=== PATIENT | female | born 1960 | race Hispanic/Latino ===

== ENCOUNTER 2017-06-12 10:42 | Emergency (ER) | payer OTHER ==
[2017-06-12] MEDS ORDERED: ACETAMINOPHEN 500 MG TAB ONE (11:54)
[2017-06-12] MEDS ORDERED: ONDANSETRON 4 MG/2 ML VIAL ONE ×2 (11:54→13:23)
[2017-06-12] MEDS ORDERED: NA CHLORIDE 0.9% 1,000 ML ONE (11:54)
[2017-06-12 12:20] LABS: Bicarbonate 27 mEq/L (21-31); Glucose Level 273 mg/dL (65-120); Potassium 3.9 mEq/L (3.6-5.0); Sodium Level 137 mEq/L (135-145)
[2017-06-12 12:25] LABS: Absolute Lymphocytes (CBC) 1.7 K/uL (0.7-4.9); Absolute Monocytes 0.3 K/uL (0.1-1.3); Absolute Neutrophil 2.4 K/uL (1.8-8.0); Eosinophils % 1.1 % (0-4.4); Hematocrit 42.6 % (36.0-45.0); Lymphocytes % 37.8 % (15.3-44.8); MCH 31.4 pg (27.0-35.0); MCV 91.9 fL (80-100); MPV 9.9 fL (7.6-11.3); Monocytes % 7.4 % (3.3-12.3); RBC Red Blood Cell Count 4.63 M/uL (3.86-4.86)
[2017-06-12 12:27] LABS: ALT/SGPT 64 IU/L (10-60); AST/SGOT 41 IU/L (10-42); Albumin 4.4 g/dL (3.2-5.5); Alkaline Phosphatase 133 IU/L (42-121); BUN Blood Urea Nitrogen 10 mg/dL (6-20); Bilirubin Direct 0.1 mg/dL (0-0.2); Bilirubin Total 0.6 mg/dL (0.3-1.2); Protein, Total 7.8 g/dL (6.0-8.3)
[2017-06-12 12:34] LABS: Urine Blood TRACE (NEG); Urine Glucose 3+ (NEG); Urine Protein NEGATIVE (NEG); Urine Specific Gravity 1.015 (1.005-1.030); Urine pH 5.5 (5.0-7.0)
[2017-06-12 12:39] LABS: Urine Bacteria <20 /HPF (<20); Urine Culture Reflex Order REFLEXED; Urine Mucus LIGHT /HPF (NONE SEEN)
[2017-06-12] MEDS ORDERED: CEFTRIAXONE/SWI 1gm 0 GM/0 ML SYR ONE (13:14)
[2017-06-12] MEDS ORDERED: HYDROMORPHONE HCL 2 MG/ML inj ONE (13:14)
--- NOTE | 2017-06-12 13:19 | ER ---
Nurse's Notes [facility] Name: Jeannie Giron Age: 57 yrs Sex: Female : 1960 Arrival Date: 06/12/2017 Time: 10:46 Bed 15 Private MD: Jerry Genao C Diagnosis: Acute Hyperglycemia;Acute Urinary Tract Infection Presentation: 06/12 10:47 Presenting complaint: Patient states: checked my blood sugar this morning around 8am, i hj coudnt get it down less than 400; i took my metformin, its didn't come down; reports nausea, headache. Transition of care: patient was not received from another setting of care. Onset of symptoms was June 12, 2017. Initial Sepsis Screen: Does the patient meet any 2 criteria? No. Patient's initial sepsis screen is negative. Does the patient have a suspected source of infection? No. Patient's initial sepsis screen is negative. Care prior to arrival: None. 10:47 Method Of Arrival: Ambulatory hj 10:47 Acuity: SHOSHANA 3 hj Triage Assessment: 10:51 General: Appears in no apparent distress. uncomfortable, Behavior is calm, cooperative, hj appropriate for age. 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 - Social history:: Patient/guardian denies using alcohol, street drugs, IV drugs, Smoking status: Patient/guardian denies using tobacco. - Family history:: not pertinent. - Hospitalizations: : No recent hospitalization is reported. Screenin:24 Abuse screen: Denies threats or abuse. Nutritional screening: No deficits noted. em Tuberculosis screening: No symptoms or risk factors identified. Fall Risk None identified. Assessment: 11:14 General: Appears in no apparent distress. comfortable, Behavior is calm, cooperative, em Reports having sugar >400 and c/o N. Pain: Complains of pain in head Pain currently is 6 out of 10 on a pain scale. Neuro: Level of Consciousness is awake, alert, obeys commands, Oriented to person, place, time, situation, Reports headache Denies weakness dizziness. Cardiovascular: Capillary refill < 3 seconds Patient's skin is warm and dry. Respiratory: Airway is patent Respiratory effort is even, unlabored, Respiratory pattern is regular, symmetrical. GI: Abdomen is round Reports nausea, Patient currently denies diarrhea, vomiting. : Urine is clear. EENT: No signs and/or symptoms were reported regarding the EENT system. Derm: Skin is intact, Skin is pink, warm \T\ dry. Musculoskeletal: Range of motion: intact in all extremities. 11:30 Reassessment: Patient appears in no apparent distress at this time. I agree with the iw above assessment by Napoleon Qiu LVN. 12:00 Reassessment: Patient appears in no apparent distress at this time. Patient and/or em family updated on plan of care and expected duration. Pain level reassessed. Patient is alert, oriented x 3, equal unlabored respirations, skin warm/dry/pink. pt request warm blanket. 13:05 Reassessment: Patient appears in no apparent distress at this time. Patient and/or em family updated on plan of care and expected duration. Pain level reassessed. Patient is alert, oriented x 3, equal unlabored respirations, skin warm/dry/pink. 14:14 Reassessment: Patient appears in no apparent distress at this time. Patient and/or em family updated on plan of care and expected duration. Pain level reassessed. Patient is alert, oriented x 3, equal unlabored respirations, skin warm/dry/pink. pt reports being itchy after receiving iv rocephen, mild redness and hives noted to face, Dr. Guerrero notified, new orders received, will continue to monitor. 14:56 Reassessment: Patient appears in no apparent distress at this time. hives and redness em have decreased, pt instructed to take Benadryl if symptoms return and to come back to the emergency room, pt and verbalizes understanding Patient states symptoms have improved. Vital Signs: 10:52 BP 129 / 62; Pulse 69; Resp 18; Temp 97.8(TE); Pulse Ox 100% on R/A; Weight 74.84 kg; hj Height 5 ft. 1 in. (154.94 cm); 12:00 BP 118 / 75; Pulse 61; Resp 18; Pulse Ox 99% on R/A; em 13:15 BP 121 / 80; Pulse 60; Resp 17; Pulse Ox 95% on R/A; em 14:23 BP 129 / 56; Pulse 57; Resp 16; Pulse Ox 97% on R/A; em 14:54 BP 121 / 58; Pulse 67; Resp 16; Pulse Ox 97% on R/A; Pain 4/10; em 10:52 Body Mass Index 31.18 (74.84 kg, 154.94 cm) hj ED Course: 10:46 Patient arrived in ED. mr 10:46 Jerry Genao MD is Private Physician. mr 10:49 Triage completed. hj 10:53 Arm band placed on left wrist. hj 11:17 Mukund Guerrero MD is Attending Physician. wa 11:23 Napoleon Qiu LVN is Primary Nurse. em 12:12 Initial lab(s) drawn, by me, sent to lab. Inserted saline lock: 20 gauge in right dh3 antecubital area, using aseptic technique. Blood collected. 12:24 No provider procedures requiring assistance completed. em 12:26 Patient has correct armband on for positive identification. Bed in low position. Call em light in reach. Side rails up X2. 15:15 IV discontinued, intact, bleeding controlled, No redness/swelling at site. Pressure em dressing applied. Administered Medications: 12:04 Drug: Tylenol 1000 mg Route: PO; em 13:01 Follow up: Response: No adverse reaction em 12:15 Drug: NS 0.9% 1000 ml Route: IV; Rate: 1 bolus; Site: right antecubital; em 14:23 Follow up: IV Status: Completed infusion; IV Intake: 1000ml em 12:20 Drug: Zofran 4 mg Route: PO; iw 13:01 Follow up: Response: No adverse reaction em 12:41 Drug: Zofran 4 mg Route: IVP; Site: right antecubital; iw 14:25 Follow up: Response: No adverse reaction em 13:40 Drug: Dilaudid 1 mg Route: IVP; Site: right antecubital; iw 14:24 Follow up: Response: No adverse reaction; Pain is decreased em 14:05 Drug: Rocephin - (cefTRIAXone) 2 grams Route: IVPB; Infused Over: 30 mins; Site: right iw antecubital; 14:25 Follow up: Response: Adverse reaction, Physician notified; Adverse reaction, Physician em notified, mild hives and redness noted to face; IV Status: Completed infusion 14:25 Drug: Benadryl 12.5 mg Route: IVP; Site: right antecubital; ae1 15:01 Follow up: Response: No adverse reaction em Point of Care Testing: Blood Glucose: 10:56 Blood Glucose: 295 mg/dL; hj Ranges: Intake: 14:23 IV: 1000ml; Total: 1000ml. em Outcome: 13:18 Discharge ordered by . wa 15:15 Discharged to home ambulatory. em 15:15 Condition: good 15:15 Discharge instructions given to patient, Instructed on discharge instructions, follow up and referral plans. medication usage, Demonstrated understanding of instructions, follow-up care, medications, Prescriptions given X 2. 15:21 Patient left the ED. em Signatures: Mahogany Jang mr Lazarus, Napoleon, WHEEL SHOP SUPERVISOR WHEEL SHOP SUPERVISOR em Farzaneh Alfaro RN RN Artie Collins RN RN Elroy Daniel RN RN ae1 Catina Zelaya 3 Mukund Guerrero MD MD wa Corrections: (The following items were deleted from the chart) 10:53 10:52 Pulse 69bpm; Resp 18bpm; Pulse Ox 100% RA; Temp 97.8F Temporal; 74.84 kg; Height hj 5 ft. 1 in.; BMI: 31.1; hj 14:33 13:05 Reassessment: Patient appears in no apparent distress at this time. Patient em and/or family updated on plan of care and expected duration. Pain level reassessed. Patient is alert, oriented x 3, equal unlabored respirations, skin warm/dry/pink. em 14:45 14:14 Reassessment: Patient appears in no apparent distress at this time. Patient em and/or family updated on plan of care and expected duration. Pain level reassessed. Patient is alert, oriented x 3, equal unlabored respirations, skin warm/dry/pink. pt reports being itchy after receiving iv rocephen, mild redness and hives noted to face, Dr. Guerrero notified, new orders received em
--- NOTE | 2017-06-12 13:20 | EDPHYS ---
Physician Documentation [facility] Name: Jeannie Giron Age: 57 yrs Sex: Female : 1960 Arrival Date: 06/12/2017 Time: 10:46 Bed 15 Private MD: Jerry Genao C ED Physician Mukund Guerrero HPI: 06/12 12:09 This 57 yrs old Female presents to ER via Ambulatory with complaints of High wa Blood Sugar. 12:09 that was potentially precipitated by no particular event. Onset: The symptoms/episode wa began/occurred 1 day(s) ago. Associated signs and symptoms: Pertinent positives: nausea, generalized feeling of unwell, Pertinent negatives: diarrhea, vomiting. Current symptoms: In the emergency department the patient's symptoms are unchanged from the initial presentation. The patient has not experienced similar symptoms in the past. The patient has not recently seen a physician. 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 - Social history:: Patient/guardian denies using alcohol, street drugs, IV drugs, Smoking status: Patient/guardian denies using tobacco. - Family history:: not pertinent. - Hospitalizations: : No recent hospitalization is reported. ROS: 12:10 Constitutional: Negative for fever, chills, and weight loss, Eyes: Negative for injury, wa pain, redness, and discharge, ENT: Negative for injury, pain, and discharge, Neck: Negative for injury, pain, and swelling, Cardiovascular: Negative for chest pain, palpitations, and edema, Respiratory: Negative for shortness of breath, cough, wheezing, and pleuritic chest pain, Abdomen/GI: Negative for abdominal pain, nausea, vomiting, diarrhea, and constipation, Back: Negative for injury and pain, MS/Extremity: Negative for injury and deformity, Skin: Negative for injury, rash, and discoloration, Neuro: Negative for headache, weakness, numbness, tingling, and seizure. 12:10 All other systems are negative. Exam: 12:11 Constitutional: This is a well developed, well nourished patient who is awake, alert, wa and in no acute distress. Head/Face: Normocephalic, atraumatic. Eyes: Pupils equal round and reactive to light, extra-ocular motions intact. Lids and lashes normal. Conjunctiva and sclera are non-icteric and not injected. Cornea within normal limits. Periorbital areas with no swelling, redness, or edema. ENT: Nares patent. No nasal discharge, no septal abnormalities noted. Tympanic membranes are normal and external auditory canals are clear. Oropharynx with no redness, swelling, or masses, exudates, or evidence of obstruction, uvula midline. Mucous membranes moist. Neck: Trachea midline, no thyromegaly or masses palpated, and no cervical lymphadenopathy. Supple, full range of motion without nuchal rigidity, or vertebral point tenderness. No Meningismus. Cardiovascular: Regular rate and rhythm with a normal S1 and S2. No gallops, murmurs, or rubs. Normal PMI, no JVD. No pulse deficits. Respiratory: Lungs have equal breath sounds bilaterally, clear to auscultation and percussion. No rales, rhonchi or wheezes noted. No increased work of breathing, no retractions or nasal flaring. Abdomen/GI: Soft, non-tender, with normal bowel sounds. No distension or tympany. No guarding or rebound. No evidence of tenderness throughout. Back: No spinal tenderness. No costovertebral tenderness. Full range of motion. Skin: Warm, dry with normal turgor. Normal color with no rashes, no lesions, and no evidence of cellulitis. MS/ Extremity: Pulses equal, no cyanosis. Neurovascular intact. Full, normal range of motion. Neuro: Awake and alert, GCS 15, oriented to person, place, time, and situation. Cranial nerves II-XII grossly intact. Motor strength 5/5 in all extremities. Sensory grossly intact. Cerebellar exam normal. Normal gait. Psych: Awake, alert, with orientation to person, place and time. Behavior, mood, and affect are within normal limits. Vital Signs: 10:52 BP 129 / 62; Pulse 69; Resp 18; Temp 97.8(TE); Pulse Ox 100% on R/A; Weight 74.84 kg; hj Height 5 ft. 1 in. (154.94 cm); 12:00 BP 118 / 75; Pulse 61; Resp 18; Pulse Ox 99% on R/A; em 13:15 BP 121 / 80; Pulse 60; Resp 17; Pulse Ox 95% on R/A; em 14:23 BP 129 / 56; Pulse 57; Resp 16; Pulse Ox 97% on R/A; em 14:54 BP 121 / 58; Pulse 67; Resp 16; Pulse Ox 97% on R/A; Pain 4/10; em 10:52 Body Mass Index 31.18 (74.84 kg, 154.94 cm) hj MDM: 11:17 Patient medically screened. wa 12:11 Differential diagnosis: hyperglycemia. r/o acute infection. wi 13:14 Data reviewed: vital signs, nurses notes, lab test result(s), radiologic studies. Test wa interpretation: by ED physician or midlevel provider: labs noted for hyperglycemia and pyuria consistent with UTI. Response to treatment: the patient's symptoms have markedly improved after treatment. 06/12 11:41 Order name: Basic Metabolic Panel; Complete Time: 12:51 wi 06/12 11:41 Order name: CBC with Diff; Complete Time: 12:51 wi 06/12 11:41 Order name: Hepatic Function; Complete Time: 12:51 wi 06/12 11:41 Order name: Urine Microscopic Only; Complete Time: 12:51 wi 06/12 12:33 Order name: Urine Dipstick--Ancillary (enter results) 06/12 12:34 Order name: Urine Dipstick-Ancillary [facility] 06/12 12:40 Order name: Urine Culture [facility] 06/12 11:41 Order name: Urine Test (obtain specimen); Complete Time: 12:26 wi 06/12 11:41 Order name: IV Saline Lock; Complete Time: 12:26 wi 06/12 11:41 Order name: Labs collected and sent; Complete Time: 12:26 wi 06/12 11:41 Order name: Urine Dipstick-Ancillary (obtain specimen); Complete Time: 12:26 wa Administered Medications: 12:04 Drug: Tylenol 1000 mg Route: PO; em 13:01 Follow up: Response: No adverse reaction em 12:15 Drug: NS 0.9% 1000 ml Route: IV; Rate: 1 bolus; Site: right antecubital; em 14:23 Follow up: IV Status: Completed infusion; IV Intake: 1000ml em 12:20 Drug: Zofran 4 mg Route: PO; iw 13:01 Follow up: Response: No adverse reaction em 12:41 Drug: Zofran 4 mg Route: IVP; Site: right antecubital; iw 14:25 Follow up: Response: No adverse reaction em 13:40 Drug: Dilaudid 1 mg Route: IVP; Site: right antecubital; iw 14:24 Follow up: Response: No adverse reaction; Pain is decreased em 14:05 Drug: Rocephin - (cefTRIAXone) 2 grams Route: IVPB; Infused Over: 30 mins; Site: right iw antecubital; 14:25 Follow up: Response: Adverse reaction, Physician notified; Adverse reaction, Physician em notified, mild hives and redness noted to face; IV Status: Completed infusion 14:25 Drug: Benadryl 12.5 mg Route: IVP; Site: right antecubital; ae1 15:01 Follow up: Response: No adverse reaction em Point of Care Testing: Blood Glucose: 10:56 Blood Glucose: 295 mg/dL; hj Ranges: Critical Glucose Levels:Adult <50 mg/dl or >400 mg/dl <40 mg/dl or >180 mg/dl Disposition: 06/12/17 13:18 Discharged to Home. Impression: Acute Hyperglycemia, Acute Urinary Tract Infection. - Condition is Stable. - Discharge Instructions: Urinary Tract Infection, [id number], Hyperglycemia, [id number]. - Prescriptions for Cipro 500 mg Oral Tablet - take 1 tablet by ORAL route every 12 hours for 3 days; 6 tablet. Zofran 4 mg Oral Tablet - take 1 tablet by ORAL route every 12 hours As needed; 20 tablet. - Medication Reconciliation Form, Thank You Letter, Antibiotic Education, Prescription Opioid Use form. - Follow up: Private Physician; When: 2 - 3 days; Reason: Recheck today's complaints. - Problem is new. - Symptoms have improved. - Notes: return for any worsening concerns you may have Signatures: Dispatcher [employer] EDMS Qiu, Napoleon, COMMUNITY HEALTH EDUCATOR COMMUNITY HEALTH EDUCATOR em Farznaeh Alfaro, RN RN iw Artie Collins RN LEONOR hj Elroy Daniel RN RN ae1 Mukund Guerrero MD MD wa Corrections: (The following items were deleted from the chart) 15:21 13:18 06/12/2017 13:18 Discharged to Home. Impression: Acute Hyperglycemia; Acute em Urinary Tract Infection. Condition is Stable. Forms are Medication Reconciliation Form, Thank You Letter, Antibiotic Education, Prescription Opioid Use. Follow up: Private Physician; When: 2 - 3 days; Reason: Recheck today's complaints. Problem is new. Symptoms have improved. wa
[2017-06-12] MEDS ORDERED: CEFTRIAXONE/SWI 2gm 2 GM/20 ML SYR IV ONE (13:30)
[2017-06-12] MEDS ORDERED: DIPHENHYDRAMINE 50 MG/ML VIAL ONE (14:17)
== END 2017-06-12 15:21 | disposition home or self-care (01) ==
LOC: ER 10:42
DX: E11.65 Type 2 diabetes mellitus with hyperglycemia (principal); N39.0 Urinary tract infection, site not specified
CPT/HCPCS: 36415; 80048; 80076; 81003; 81015; 82962; 85025; 87086; 87088; 96361; 96365; 96375; 99284; J0696; J1170; J2405; J7030

== ENCOUNTER → 2017-06-17 | Day surgery (SDC) | payer OTHER ==
[~2017-06-17] MED LIST: DIPHENHYDRAMINE 50 MG/ML VIAL ONE; Gentamicin Inj 160 MG in NA CHLORIDE 0.9% 100 ML IV ONE; KETOROLAC 30 MG/ML INJ ONE; MEPERIDINE HCL 50 MG/ML AMP ONE; MORPHINE 4 MG/ML SYR IV PRN; MORPHINE 4 MG/ML SYR ONE; Magnesium Sulfate 2gm IVPB 2 G/50 ML BAG IV ONE; NA CHLORIDE 0.9% 1,000 ML IV SCH; NA CHLORIDE 0.9% 1,000 ML ONE; NA CIT/CITRIC AC 30 ML ORAL UDC ONE; ONDANSETRON 4 MG/2 ML VIAL IV PRN; ONDANSETRON 4 MG/2 ML VIAL ONE
[2017-06-17 08:03] LABS: Absolute Lymphocytes (CBC) 1.9 K/uL (0.7-4.9); Absolute Monocytes 0.4 K/uL (0.1-1.3); Absolute Neutrophil 3.2 K/uL (1.8-8.0); Basophils % 0.7 % (0-1.3); Eosinophils % 1.8 % (0-4.4); Lymphocytes % 34.3 % (15.3-44.8); MCH 31.5 pg (27.0-35.0); MCV 93.2 fL (80-100); MPV 10.5 fL (7.6-11.3); Monocytes % 7.4 % (3.3-12.3); RBC Red Blood Cell Count 4.62 M/uL (3.86-4.86)
[2017-06-17 08:04] LABS: Bicarbonate 27 mEq/L (21-31); Glucose Level 246 mg/dL (65-120); Lipase 64 U/L (22-51); Potassium 3.6 mEq/L (3.6-5.0); Sodium Level 137 mEq/L (135-145)
[2017-06-17 08:10] LABS: ALT/SGPT 68 IU/L (10-60); AST/SGOT 43 IU/L (10-42); Albumin 4.3 g/dL (3.2-5.5); Alkaline Phosphatase 130 IU/L (42-121); Amylase Level 77 U/L (28-100); BUN Blood Urea Nitrogen 18 mg/dL (6-20); Bilirubin Direct 0.1 mg/dL (0-0.2); Bilirubin Total 0.8 mg/dL (0.3-1.2); Protein, Total 7.6 g/dL (6.0-8.3)
[2017-06-17 08:11] LABS: Urine Bacteria <20 /HPF (<20); Urine Culture Reflex Order NOT NEEDED; Urine RBC >50 /HPF (NONE SEEN)
[2017-06-17 08:11] LABS: Urine Blood 3+ (NEG); Urine Glucose 3+ (NEG); Urine Protein NEGATIVE (NEG); Urine Specific Gravity 1.025 (1.005-1.030); Urine pH 5.5 (5.0-7.0)
--- NOTE | 2017-06-17 08:44 | RAD REPORT ---
EXAM DESCRIPTION: CT - Stone Protocol - 06/17/2017 8:12 am CLINICAL HISTORY: Flank pain. COMPARISON: 06/07/2016, 06/03/2016 TECHNIQUE: Axial images were obtained without oral or IV contrast. Lack of contrast limits solid org an and vascular assessment. The [id number] spans the entirety of the system partially obscuring uppermost abdomen and lung bases. Coronal reformatted images were obtained and reviewed. All CT scans are performed using dose optimization technique as appropriate and may include automated exposure control or mA/KV adjustment according to patient size. FINDINGS: The lower lung neal are clear. Cholecystectomy clips. Imaged portions of the liver and spleen show no suspicious findings on non-contrast imaging. The panc reas and adrenal glands are normal. No pathologic lymphadenopathy in the abdomen or pelvis. 4 mm stone (750 HU) is present at the right UPJ resulting in mild right hydronephrosis. Additional co llection of stones seen mid-pole posterior right kidney, largest measuring 4 mm. No left-sided stone or hydronephrosis. No bowel obstruction, free air, free fluid or abscess. Normal appendix noted. Prominent spondylosis at L2-3 and L5-S1. IMPRESSION: 4 mm stone right UPJ (750 HU) resulting in mild right hydronephrosis. Additional collection of stones mid-pole right posterior kidney.
--- NOTE | 2017-06-17 09:12 | EDPHYS ---
Physician Documentation [facility] Name: Jeannie Giron Age: 57 yrs Sex: Female : 1960 Arrival Date: 06/17/2017 Time: 07:04 Bed 20 Private MD: ED Physician Romeo Whiteside HPI: 06/17 07:28 This 57 yrs old Female presents to ER via Ambulatory with complaints of cp Possible Kidney Stone, High Blood Sugar. 07:28 The patient complains of pain in the right mid back. The pain radiates to the abdomen. cp Onset: The symptoms/episode began/occurred 2 day(s) ago. Associated signs and symptoms: Pertinent positives: nausea, Pertinent negatives: diarrhea, fever, headache, pain radiating to the lower extremities, vomiting. The patient has experienced similar episodes in the past, today's symptoms are similar, to when the patient was apparently diagnosed with kidney stones. The patient has been recently seen at the [facility] Emergency Department, last week, diagnosed with UTI and prescribed cipro. reports stopped taking cipro due to medication reaction of dizziness. was seen for f/u with DR Maynard recently and diagnosed with kidney stones. 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 - Social history:: Smoking status: Patient/guardian denies using tobacco. ROS: 07:30 Constitutional: Negative for body aches, chills, fever, poor PO intake. cp 07:30 Eyes: Negative for injury, pain, redness, and discharge. cp 07:30 ENT: Negative for drainage from ear(s), ear pain, sore throat, difficulty swallowing, difficulty handling secretions. 07:30 Cardiovascular: Negative for chest pain, edema, palpitations. 07:30 Respiratory: Negative for cough, shortness of breath, wheezing. 07:30 Abdomen/GI: Positive for abdominal pain, nausea, Negative for vomiting, diarrhea, constipation, anorexia, black/tarry stool, rectal bleeding. 07:30 : Positive for flank pain, Negative for vaginal bleeding, vaginal discharge. 07:30 Skin: Negative for cellulitis, rash. 07:30 Neuro: Negative for altered mental status, headache, weakness. 07:30 All other systems are negative. Exam: 07:38 Head/Face: Normocephalic, atraumatic. Eyes: Pupils equal round and reactive to light, cp extra-ocular motions intact. Lids and lashes normal. Conjunctiva and sclera are non-icteric and not injected. Cornea within normal limits. Periorbital areas with no swelling, redness, or edema. ENT: Nares patent. No nasal discharge, no septal abnormalities noted. Tympanic membranes are normal and external auditory canals are clear. Oropharynx with no redness, swelling, or masses, exudates, or evidence of obstruction, uvula midline. Mucous membranes moist. Chest/axilla: Normal chest wall appearance and motion. Nontender with no deformity. No lesions are appreciated. 07:38 Constitutional: The patient appears in no acute distress, alert, awake, non-toxic, well developed, well nourished, uncomfortable. 07:38 Cardiovascular: Rate: normal, Rhythm: regular, Edema: is not appreciated, JVD: is not cp appreciated. 07:38 Respiratory: the patient does not display signs of respiratory distress, Respirations: normal, no use of accessory muscles, no retractions, no splinting, no tachypnea, labored breathing, is not present, Breath sounds: are clear throughout, no decreased breath sounds, no stridor, no wheezing. 07:38 Abdomen/GI: Inspection: abdomen appears normal, Bowel sounds: active, all quadrants, Palpation: soft, in all quadrants, moderate abdominal tenderness, in the posterior aspect of right lateral abdomen, anterior aspect of right lateral abdomen, right upper quadrant and right lower quadrant, rebound tenderness, is not appreciated. 07:38 Back: pain, of the right mid back. 07:38 Skin: cellulitis, is not appreciated, no rash present. 07:38 Neuro: Orientation: to person, place \T\ time. Mentation: lucid, able to follow commands, Motor: moves all fours, strength is normal, Sensation: no obvious gross deficits. Vital Signs: 07:25 BP 127 / 73; Pulse 84; Resp 16 S; Temp 98.2; Pulse Ox 98% on R/A; Weight 74.84 kg; iw Height 5 ft. 1 in. (154.94 cm); Pain 8/10; 08:28 BP 130 / 58; Pulse 74; Resp 16; Pulse Ox 96% on R/A; ae1 07:25 Body Mass Index 31.18 (74.84 kg, 154.94 cm) iw MDM: 07:16 Patient medically screened. cp 08:50 Data reviewed: vital signs, nurses notes, lab test result(s), radiologic studies, CT cp scan. 08:50 Response to treatment: the patient's symptoms have markedly improved after treatment. cp 08:57 Physician consultation: Antonia Maynard MD was called at 08:57, left message on voicemail. 09:10 Physician consultation: Antonia Maynard MD was contacted at 09:10, regarding admission, cp to the operating room, patient's condition. 06/17 07:24 Order name: Amylase, Serum; Complete Time: 08:15 cp 06/17 07:24 Order name: Basic Metabolic Panel; Complete Time: 08:15 cp 06/17 08:15 Interpretation: Normal except: GLUC 246. cp 06/17 07:24 Order name: CBC with Diff; Complete Time: 08:15 cp 06/17 08:15 Interpretation: Reviewed. cp 06/17 07:24 Order name: Creatinine for Radiology; Complete Time: 08:15 cp 06/17 07:24 Order name: Hepatic Function; Complete Time: 08:15 cp /08 08:15 Interpretation: Normal except: SGOT 43; SGPT 68; ALK 130. cp 06/17 07:24 Order name: Lipase; Complete Time: 08:15 cp 08 08:16 Interpretation: LIP 64; Reviewed. cp 06/17 07:24 Order name: Urine Microscopic Only; Complete Time: 08:15 cp 06/17 08:49 Interpretation: Normal except: URBC >50. cp 06/17 07:56 Order name: CT Stone Protocol; Complete Time: 08:47 cp 06/17 07:57 Order name: Urine Dipstick--Ancillary (enter results); Complete Time: 08:15 ag 06/17 07:57 Order name: Urine --Ancillary (enter results); Complete Time: 08:15 ag 08 07:24 Order name: Accucheck Blood Glucose; Complete Time: 07:57 cp 06/17 07:24 Order name: Urine Test (obtain specimen); Complete Time: 07:57 cp 08 07:24 Order name: IV Saline Lock; Complete Time: 07:29 cp 08 07:24 Order name: Labs collected and sent; Complete Time: 07:29 cp 06/17 07:24 Order name: Urine Dipstick-Ancillary (obtain specimen); Complete Time: 07:57 cp Administered Medications: 07:40 Drug: NS 0.9% 1000 ml Route: IV; Rate: 1 bolus; Site: right antecubital; ae1 09:29 Follow up: IV Status: Completed infusion ae1 07:41 Drug: Zofran 4 mg Route: IVP; Site: right antecubital; ae1 08:29 Follow up: Response: Nausea is decreased ae1 08:02 Drug: morphine 4 mg Route: IVP; Site: right antecubital; ae1 08:28 Follow up: Response: Pain is decreased ae1 09:07 CANCELLED (Physician Discretion): Flomax 0.4 mg PO once cp 09:10 Drug: NS 0.9% 1000 ml Route: IV; Rate: 125 ml/hr; Site: right antecubital; ae1 09:34 Follow up: IV Status: Infusion continued upon admission ae1 09:11 Drug: TORadol 30 mg Route: IVP; Site: right antecubital; ae1 09:34 Follow up: Response: No adverse reaction ae1 09:29 Drug: Magnesium Sulfate 2 grams Route: IVPB; Infused Over: 2 hrs; Site: right ae1 antecubital; 09:34 Follow up: IV Status: Infusion continued upon admission ae1 09:34 Not Given (ordered from [facility] via fax and telephone, sorter/assay tech notified to send ae1 to OR): Gentamicin 160 mg 100 ml IVPB once over 30 mins Point of Care Testing: Blood Glucose: :57 Blood Glucose: 234 mg/dL; ae1 Ranges: Critical Glucose Levels:Adult <50 mg/dl or >400 mg/dl <40 mg/dl or >180 mg/dl Disposition: 06/18 06:57 Co-signature as Attending Physician, Romeo Whiteside MD I agree with the assessment and jarad plan of care. Disposition: 06/17/17 09:12 Hospitalization ordered by Antonia Maynard for Observation. Preliminary diagnosis is Calculus of ureter - Right. - Bed requested for Telemetry/MedSurg (observation). - Status is Observation. ae1 - Condition is Stable. - Problem is new. - Symptoms have improved. UTI on Admission? No Signatures: Dispatcher [employer] EDNM Romeo Whiteside MD MD cha Williams, Irene, RN RN Romeo Shelton PA PA Elroy Parmar RN RN ae1 Corrections: (The following items were deleted from the chart) 06/17 09:07 09:00 Flomax 0.4 mg PO once ordered. cp cp 09:34 08:56 Fluid Challenge ordered. cp ae1 09:35 09:12 Hospitalization Ordered by Antonia Maynard MD for Observation. Preliminary ae1 diagnosis is Calculus of ureter - Right. Bed requested for Telemetry/MedSurg (observation). Status is Observation. Condition is Stable. Problem is new. Symptoms have improved. UTI on Admission? No. cp
--- NOTE | 2017-06-17 09:12 | ER ---
Nurse's Notes [facility] Name: Jeannie Giron Age: 57 yrs Sex: Female : 1960 Arrival Date: 06/17/2017 Time: 07:04 Bed 20 Private MD: Diagnosis: Calculus of ureter-Right Presentation: 06/17 07:21 Presenting complaint: Patient states: was seen here last week, dx with UTI, sent home iw on abx, was seen at Dr. Maynard's office and dx with kidney stones, was told she needed lithotripsy but was never scheduled, was told to come to ER if she had increased pain, pt has had lower abd pain, right low back pain and nausea, denies pain with urination, also says her BS has been running high. Transition of care: patient was not received from another setting of care. Onset of symptoms was June 10, 2017. Initial Sepsis Screen: Does the patient meet any 2 criteria? No. Patient's initial sepsis screen is negative. Does the patient have a suspected source of infection? No. Patient's initial sepsis screen is negative. Care prior to arrival: None. 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 - Social history:: Smoking status: Patient/guardian denies using tobacco. Screenin:58 Abuse screen: Denies threats or abuse. Nutritional screening: No deficits noted. ae1 Tuberculosis screening: No symptoms or risk factors identified. Fall Risk None identified. Assessment: 07:20 General: Appears in no apparent distress. uncomfortable, Behavior is cooperative, ae1 anxious. Pain: Complains of pain in suprapubic area. Neuro: Level of Consciousness is awake, alert, obeys commands, Oriented to person, place, time, situation. Cardiovascular: Patient's skin is warm and dry. Respiratory: Airway is patent Respiratory effort is even, unlabored, Respiratory pattern is regular, symmetrical. GI: Bowel sounds present X 4 quads. Abd is soft and non tender. : Reports burning with urination, Patient states she has "8 kidney stones.". EENT: No signs and/or symptoms were reported regarding the EENT system. Derm: Skin is normal. Musculoskeletal: No signs and/or symptoms reported regarding the musculoskeletal system. 08:29 Reassessment: Patient appears in no apparent distress at this time. Patient states pain ae1 medication reduced pain level. Patient states symptoms have improved. Vital Signs: 07:25 BP 127 / 73; Pulse 84; Resp 16 S; Temp 98.2; Pulse Ox 98% on R/A; Weight 74.84 kg; iw Height 5 ft. 1 in. (154.94 cm); Pain 8/10; 08:28 BP 130 / 58; Pulse 74; Resp 16; Pulse Ox 96% on R/A; ae1 07:25 Body Mass Index 31.18 (74.84 kg, 154.94 cm) iw ED Course: 07:04 Patient arrived in ED. ds1 07:16 Romeo Shelton PA is PHCP. cp 07:16 Romeo Whiteside MD is Attending Physician. cp 07:18 Elroy Daniel, LEONOR is Primary Nurse. ae1 07:24 Triage completed. iw 07:25 Arm band placed on. iw 07:49 Inserted saline lock: 20 gauge in right antecubital area, using aseptic technique. ae1 Blood collected. 07:50 Bed in low position. Call light in reach. Side rails up X 1. Pulse ox on. NIBP on. Warm ae1 blanket given. 08:[address] via wheelchair. ae1 08:12 CT Stone Protocol In Process Unspecified. EDMS 09:11 Antonia Maynard MD is Hospitalizing Provider. cp 09:35 No provider procedures requiring assistance completed. Patient admitted, IV remains in ae1 place. Administered Medications: 07:40 Drug: NS 0.9% 1000 ml Route: IV; Rate: 1 bolus; Site: right antecubital; ae1 09:29 Follow up: IV Status: Completed infusion ae1 07:41 Drug: Zofran 4 mg Route: IVP; Site: right antecubital; ae1 08:29 Follow up: Response: Nausea is decreased ae1 08:02 Drug: morphine 4 mg Route: IVP; Site: right antecubital; ae1 08:28 Follow up: Response: Pain is decreased ae1 09:07 CANCELLED (Physician Discretion): Flomax 0.4 mg PO once cp 09:10 Drug: NS 0.9% 1000 ml Route: IV; Rate: 125 ml/hr; Site: right antecubital; ae1 09:34 Follow up: IV Status: Infusion continued upon admission ae1 09:11 Drug: TORadol 30 mg Route: IVP; Site: right antecubital; ae1 09:34 Follow up: Response: No adverse reaction ae1 09:29 Drug: Magnesium Sulfate 2 grams Route: IVPB; Infused Over: 2 hrs; Site: right ae1 antecubital; 09:34 Follow up: IV Status: Infusion continued upon admission ae1 09:34 Not Given [facility], electronics engineering technician notified to send ae1 to OR): Gentamicin 160 mg 100 ml IVPB once over 30 mins Point of Care Testing: Blood Glucose: 07:57 Blood Glucose: 234 mg/dL; ae1 Ranges: Outcome: 09:12 Decision to Hospitalize by Provider. cp 09:35 Admitted to OR accompanied by nurse, via stretcher, room OR suite, with chart, Report ae1 called to TRENA New RN. 09:35 Condition: stable 09:35 Instructed on the need for admit, Demonstrated understanding of instructions. 09:35 Patient left the ED. ae1 Signatures: Dispatcher [employer] [facility] Tawanna Santana ds1 Farzaneh Alfaro, RN RN Romeo Shelton PA PA cp Elroy Daniel RN RN ae1
== END | disposition home or self-care (01) ==
LOC: ER 07:03 → OR 09:12
PROVIDERS: ATTEND Urology
PROC: 0TF3XZZ Fragmentation in Right Kidney Pelvis, External Approach (ICD-10-PCS; principal; 2017-06-17)
DX: N20.0 Calculus of kidney (principal); E11.9 Type 2 diabetes mellitus without complications; Z91.013 Allergy to seafood; Z88.6 Allergy status to analgesic agent; Z88.1 Allergy status to other antibiotic agents; Z88.8 Allergy status to other drugs, medicaments and biological substances; Z80.3 Family history of malignant neoplasm of breast
CPT/HCPCS: 36415; 74176; 76377; 80048; 80076; 81003; 81015; 81025; 82150; 83690; 85025; 96361; 96374; 96375; 99285; J1580; J2175; J2405; J3475; J7030

== ENCOUNTER 2017-06-21 20:15 | Emergency (ER) | payer OTHER ==
[2017-06-21] MEDS ORDERED: FLEET ENEMA ADULT PR ONE (20:36)
[2017-06-21] MEDS ORDERED: NA CHLORIDE 0.9% 1,000 ML ONE (20:36)
[2017-06-21 20:51] LABS: Absolute Monocytes 0.4 K/uL (0.1-1.3); Absolute Neutrophil 6.6 K/uL (1.8-8.0); Basophils % 0.5 % (0-1.3); Eosinophils % 0.2 % (0-4.4); Hematocrit 42.3 % (36.0-45.0); Lymphocytes % 12.3 % (15.3-44.8); MCH 31.8 pg (27.0-35.0); MPV 10.3 fL (7.6-11.3); Monocytes % 4.4 % (3.3-12.3); RBC Red Blood Cell Count 4.64 M/uL (3.86-4.86)
[2017-06-21 21:11] LABS: Bicarbonate 25 mEq/L (21-31); Glucose Level 257 mg/dL (65-120); Lipase 36 U/L (22-51); Potassium 3.9 mEq/L (3.6-5.0); Sodium Level 134 mEq/L (135-145)
[2017-06-21 21:18] LABS: ALT/SGPT 66 IU/L (10-60); AST/SGOT 37 IU/L (10-42); Albumin 4.3 g/dL (3.2-5.5); Alkaline Phosphatase 119 IU/L (42-121); Amylase Level 50 U/L (28-100); BUN Blood Urea Nitrogen 14 mg/dL (6-20); Bilirubin Direct 0.2 mg/dL (0-0.2); Bilirubin Total 1.2 mg/dL (0.3-1.2); Protein, Total 7.9 g/dL (6.0-8.3)
--- NOTE | 2017-06-21 21:47 | RAD REPORT ---
EXAM DESCRIPTION: CT - Abdomen Pelvis Wo Contrast - 06/21/2017 9:33 pm CLINICAL HISTORY: Periumbilical pain, constipation COMPARISON: CT imaging June 17 TECHNIQUE: Axial [address] imaging of the abdomen and pelvis was performed without IV contrast. No IV contrast was given because of allergy, abnormal renal function, patient refusal or physician re quest. Oral contrast was given. All CT scans are performed using dose optimization technique as appropriate and may include automated exposure control or mA/KV adjustment according to patient size. FINDINGS: No suspicious findings in the lung bases. No pericardial thickening or effusion. The liver, spleen and pancreas show no suspicious findings on non-contrast imaging. Cholecystectomy c lips are present. No biliary tree dilatation. Mild to moderate dilatation of the right-sided extra renal pelvis and calices noted along with mild u reter dilatation. There is a 4 millimeter calculus at the right UVJ. This is likely distal migration of the UPJ calculus seen June 17. Additional nonobstructing calculi are seen and posterior calices of the right kidney. No left-sided hydronephrosis or calculus. No significant adrenal finding. Isodens e renal masses and pyelonephritis cannot be excluded in the absence of IV contrast. Urinary bladder i s mostly contracted. No calculus within the lumen of the bladder. No gastric dilatation or gastric wall thickening. No acute small bowel finding. There is moderately l arge stool volume filling but not dilating the colon. Distention is greatest in the rectum. There is limited assessment of the perianal tissues. A small component of proctitis would be possible. Hemorrh oids are not excluded. No free air, free fluid or inflammatory stranding. No hernia, mass or bulky ly mphadenopathy. No suspicious bony findings. IMPRESSION: Mild to moderate right-sided hydronephrosis secondary to a 4 millimeter UVJ calculus. Th is is distal migration of a previously detailed UPJ calculus. Punctate 1 millimeter calcification is present possibly within the right ureter near the pelvic inlet (image 70/96). Nonobstructing calculi in the calices mid right kidney. Large amount of stool filling but not dilating the colon. Congestion, edema or hemorrhoids around the distal most rectum are not excluded. Full assessment is limited is the absence of IV contrast.
[2017-06-21] MEDS ORDERED: IBUPROFEN 400 MG TAB ONE (21:53)
--- NOTE | 2017-06-21 22:14 | ER ---
Nurse's Notes [facility] Name: Jeannie Giron Age: 57 yrs Sex: Female : 1960 Arrival Date: 06/21/2017 Time: 20:15 Bed 8 Private MD: Diagnosis: Constipation, unspecified Presentation: 06/21 20:19 Presenting complaint: Patient states: I have not had a BM since Friday after my la1 lithotripsy and I think Im impacted. Transition of care: patient was not received from another setting of care. Onset of symptoms was June 21, 2017. Initial Sepsis Screen: Does the patient meet any 2 criteria? No. Patient's initial sepsis screen is negative. Does the patient have a suspected source of infection? No. Patient's initial sepsis screen is negative. Care prior to arrival: None. 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 - Social history:: Smoking status: Patient/guardian denies using tobacco, Patient uses Patient/guardian denies using alcohol, street drugs, The patient lives with family. - Family history:: not pertinent. Screenin:18 Abuse screen: Denies threats or abuse. Denies injuries from another. Nutritional lp1 screening: No deficits noted. Tuberculosis screening: No symptoms or risk factors identified. Fall Risk None identified. Assessment: 20:45 General: Appears uncomfortable, Behavior is appropriate for age. Pain: Complains of lp1 pain in rectum Pain currently is 10 out of 10 on a pain scale. Neuro: Level of Consciousness is awake, alert, obeys commands. Cardiovascular: Patient's skin is warm and dry. Respiratory: Respiratory effort is even, unlabored, Respiratory pattern is regular. GI: Abdomen is non-distended. : No signs and/or symptoms were reported regarding the genitourinary system. EENT: No signs and/or symptoms were reported regarding the EENT system. Derm: Skin is pink, warm \T\ dry. Musculoskeletal: Circulation, motion, and sensation intact. 21:27 Reassessment: Patient states slight relief, BM with small solid stool noted to bsc. lp1 22:30 Reassessment: Patient appears in no apparent distress at this time. Patient and/or lp1 family updated on plan of care and expected duration. Pain level reassessed. Patient is alert, oriented x 3, equal unlabored respirations, skin warm/dry/pink. Patient states symptoms have improved. 23:25 Reassessment: Patient appears in no apparent distress at this time. Patient and/or tl2 family updated on plan of care and expected duration. Pain level reassessed. Patient is alert, oriented x 3, equal unlabored respirations, skin warm/dry/pink. Pt verbalized understanding of discharge instructions, need for follow up and prescription usage Patient states feeling better. Vital Signs: 20:20 BP 136 / 72; Pulse 122; Resp 16; Temp 97.8; Pulse Ox 100% on R/A; Weight 74.84 kg; la1 Height 5 ft. 1 in. (154.94 cm); 21:46 BP 127 / 72; Pulse 108; Resp 18; Pulse Ox 93% on R/A; lp1 23:25 BP 127 / 74; Pulse 100; Resp 18; Pulse Ox 98% on R/A; tl2 20:20 Body Mass Index 31.18 (74.84 kg, 154.94 cm) la1 ED Course: 20:15 Patient arrived in ED. ds1 20:19 Pili Garcia MD is Attending Physician. rg2 20:20 Triage completed. la1 20:20 Arm band placed on left wrist. la1 20:26 Tequila Oh, LEONOR is Primary Nurse. lp1 20:30 Inserted saline lock: 20 gauge in right antecubital area, using aseptic technique. tl2 Blood collected. placed by adrian Darden. 20:54 Radiology exam delayed due to test not completed at this time. having enemas. jg1 21:18 Patient has correct armband on for positive identification. Placed in gown. Pulse ox lp1 on. NIBP on. 21:[address] jg1 21:33 CT completed. Patient tolerated procedure well. Patient moved back from CT. jg1 21:34 Abdomen In Process Unspecified. EDMS 23:25 No provider procedures requiring assistance completed. tl2 23:28 IV discontinued, intact, bleeding controlled, No redness/swelling at site. Pressure tl2 dressing applied. Administered Medications: 20:45 Drug: Fleet Enema 133 ml Route: W[place]; lp1 22:02 Follow up: Response: Marked relief of symptoms lp1 21:45 Drug: NS 0.9% 1000 ml Route: IV; Rate: 1 bolus; Site: right antecubital; lp1 23:29 Follow up: IV Status: Completed infusion; IV Intake: 1000ml tl2 22:02 Drug: Motrin 400 mg Route: PO; lp1 23:29 Follow up: Response: No adverse reaction tl2 Intake: 23:29 IV: 1000ml; Total: 1000ml. tl2 Outcome: 22:13 Discharge ordered by . ma2 23:28 Discharged to home ambulatory. tl2 23:28 Condition: stable 23:28 Discharge instructions given to patient, Instructed on discharge instructions, follow up and referral plans. medication usage, Demonstrated understanding of instructions, follow-up care, medications, Prescriptions given X 1. 23:29 Patient left the ED. tl2 Signatures: Dispatcher [employer] EDMS Kamala Noel rg2 Rosanna Gaviria j Tawanna Santana ds1 Tequila Oh, RN RN lp1 Boo Gutiérrez RN RN la1 Becky Wick RN RN tl2 Pili Garcia MD MD ma2
--- NOTE | 2017-06-21 22:14 | EDPHYS ---
Physician Documentation [facility] Name: Jeannie Giron Age: 57 yrs Sex: Female : 1960 Arrival Date: 06/21/2017 Time: 20:15 Bed 8 Private MD: ED Physician Pili Garcia HPI: 06/21 22:14 This 57 yrs old Female presents to ER via Ambulatory with complaints of ma2 Abdominal Pain. 20:29 The patient presents with abdominal pain in the periumbilical area. Onset: The ma2 symptoms/episode began/occurred gradually, 2 day(s) ago. Associated signs and symptoms: Pertinent positives: constipation. Associated signs and symptoms: Pertinent negatives: nausea and vomiting, shortness of breath, vomiting blood. Severity of pain: At its worst the pain was moderate. The patient has not experienced similar symptoms in the past. RISK CONSULTANT: 21:17 LMP N/A - Post-menopause lp1 Historical: - Allergies: 20:20 Hydrocodone-Acetaminophen; la1 20:20 Iodinated Contrast Media - IV Dye; la1 20:20 Iodine; la1 20:20 Rocephin (rash); la1 20:20 SHELLFISH; la1 - PMHx: 20:20 Diabetes - NIDDM; Kidney stones; la1 - Immunization history:: Adult Immunizations up to date. - Social history:: Smoking status: Patient/guardian denies using tobacco, Patient uses Patient/guardian denies using alcohol, street drugs, The patient lives with family. - Family history:: not pertinent. ROS: 20:29 Abdomen/GI: Positive for abdominal pain, constipation. ma2 20:29 All other systems are negative. 22:15 Constitutional: Negative for fever, chills, and weight loss. ma2 Exam: 20:29 Constitutional: This is a well developed, well nourished patient who is awake, alert, ma2 and in no acute distress. Chest/axilla: Normal chest wall appearance and motion. Nontender with no deformity. No lesions are appreciated. Cardiovascular: Regular rate and rhythm with a normal S1 and S2. No gallops, murmurs, or rubs. Normal PMI, no JVD. No pulse deficits. Respiratory: Lungs have equal breath sounds bilaterally, clear to auscultation and percussion. No rales, rhonchi or wheezes noted. No increased work of breathing, no retractions or nasal flaring. 20:29 Abdomen/GI: Palpation: moderate abdominal tenderness, in the umbilical area. Vital Signs: 20:20 BP 136 / 72; Pulse 122; Resp 16; Temp 97.8; Pulse Ox 100% on R/A; Weight 74.84 kg; la1 Height 5 ft. 1 in. (154.94 cm); 21:46 BP 127 / 72; Pulse 108; Resp 18; Pulse Ox 93% on R/A; lp1 23:25 BP 127 / 74; Pulse 100; Resp 18; Pulse Ox 98% on R/A; tl2 20:20 Body Mass Index 31.18 (74.84 kg, 154.94 cm) la1 MDM: 20:24 Patient medically screened. ma2 20:29 Differential diagnosis: bowel obstruction, Cholelithiasis, diverticulitis, gastritis, ma2 Irritable bowel syndrome. 21:53 Data reviewed: vital signs, nurses notes, EKG, radiologic studies. Counseling: I had a ma2 detailed discussion with the patient and/or guardian regarding: the historical points, exam findings, and any diagnostic results supporting the discharge/admit diagnosis, the presence of at least one elevated blood pressure reading (>120/80) during this emergency department visit, the need for outpatient follow up. Medication response: improved. Response to treatment: the patient's symptoms have resolved after treatment, had a good BM. 06/21 20:26 Order name: Amylase, Serum; Complete Time: 21:53 [facility] 06/21 20:26 Order name: Basic Metabolic Panel; Complete Time: 21:53 [facility] 06/21 20:26 Order name: CBC with Diff; Complete Time: 21:53 in2 06/21 20:26 Order name: Creatinine for Radiology; Complete Time: 21:53 in2 06/21 20:26 Order name: Hepatic Function; Complete Time: 21:53 [facility] 06/21 20:26 Order name: Lipase; Complete Time: 21:53 [facility] 06/21 20:26 Order name: IV Saline Lock; Complete Time: 21:02 in2 06/21 21:02 Order name: Abdomen ; Complete Time: 21:53 EDMS 06/21 20:26 Order name: Labs collected and sent; Complete Time: 21:03 in2 06/21 20:26 Order name: Urine Dipstick-Ancillary (obtain specimen); Complete Time: 22:17 ma2 Administered Medications: 20:45 Drug: Fleet Enema 133 ml Route: WV; lp1 22:02 Follow up: Response: Marked relief of symptoms lp1 21:45 Drug: NS 0.9% 1000 ml Route: IV; Rate: 1 bolus; Site: right antecubital; lp1 23:29 Follow up: IV Status: Completed infusion; IV Intake: 1000ml tl2 22:02 Drug: Motrin 400 mg Route: PO; lp1 23:29 Follow up: Response: No adverse reaction tl2 Disposition: 06/21/17 22:13 Discharged to Home. Impression: Constipation, unspecified. - Condition is Stable. - Discharge Instructions: Constipation, Adult. - Prescriptions for Fleet Enema - take 1 ampule by RECTAL route 1-2 times daily; 2 Container. - Medication Reconciliation Form, Thank You Letter, Antibiotic Education, Prescription Opioid Use form. - Follow up: Private Physician; When: Tomorrow; Reason: If symptoms return. - Problem is new. - Symptoms are unchanged. Signatures: Dispatcher [employer] [facility] Tequila Oh RN RN lp1 Boo Gutiérrez RN RN la1 Becky Wick RN RN tl2 Pili Garcia MD MD ma2 Corrections: (The following items were deleted from the chart) 21:02 20:26 Abdomen Pelvis W Con+CT.RAD.BRZ ordered. [facility] 23:29 22:13 06/21/2017 22:13 Discharged to Home. Impression: Constipation, unspecified. tl2 Condition is Stable. Forms are Medication Reconciliation Form, Thank You Letter, Antibiotic Education, Prescription Opioid Use. Follow up: Private Physician; When: Tomorrow; Reason: If symptoms return. Problem is new. Symptoms are unchanged. ma2
== END 2017-06-21 23:29 | disposition home or self-care (01) ==
LOC: ER 20:15
DX: K59.00 Constipation, unspecified (principal); E11.9 Type 2 diabetes mellitus without complications; Z88.3 Allergy status to other anti-infective agents; Z88.5 Allergy status to narcotic agent; Z91.013 Allergy to seafood; Z91.041 Radiographic dye allergy status; Z91.048 Other nonmedicinal substance allergy status
CPT/HCPCS: 36415; 74176; 80048; 80076; 82150; 83690; 85025; 96360; 96361; 99284; J7030

== ENCOUNTER 2017-08-19 12:38 | Emergency (ER) | payer OTHER ==
--- OUTSIDE RECORDS SUMMARY | 2017-08-19 12:48 | XMS REPORT | Continuity of Care Document ---
:1960 Author Organization Interface Problems Problem Status Onset Classification Date Comments Source Date Reported Discharge 10/31/2016 [facility] Diagnosis: 7 Localized edema BOTH LEG PAINS [address] 723.4/723.0/721 Active [facility] .0/43224/17297/ 3 57764/3 Anxiety Active Problem 10/31/2016 depression [facility] Back pain Active Problem 10/31/2016 [facility] Cough<sup>1</house Active Problem 10/31/2016 sinus p> drainage [facility] Diabetes Active Problem 10/31/2016 mellitus [facility] Heartburn Active Problem 10/31/2016 symptom [facility] Sleep apnea Active Problem 10/31/2016 [facility] BRACHIAL Active [facility] NEURITIS NOS CERVICAL Active [facility] SPONDYLOSIS Medications Medication Details Route Status Patient Ordering Order Source Instructions Provider Date Medrol Dosepak As directed on Active [place] 12/09/ [facility] 4 mg Tablet package 2012 instructions, PO, Daily, Take with or without food, 1 Pack, Substitution AllowedTake with or without food [place] 7.5/325 1-2 tab, PO, Active [place] 12/09/ [facility] oral tablet Q4-6H, PRN, 50 2012 [facility] tab, Pain, Substitution Allowed, Maintenance trazodone 150 mg, 3 tab, No Longer Bon[place] 12/09/ [facility] Route: PO, Active 2012 [facility] Drug form: TAB, Bedtime, Dosing Weight 82.273, kg, Start date: 12/08/12 21:00:00, Duration: 30 day, Stop date: 01/06/13 21:00:00(Same As: Desyrel) metFORmin 500 500 mg, 1 tab, No Longer [place] 12/08/ [facility] mg oral tablet Route: PO, Active 2012 [facility] Drug form: TAB, BID, Dosing Weight 82.273, kg, Start date: 12/08/12 17:00:00, Duration: 30 day, Stop date: 01/07/13 9:00:00(Same as: Glucophage) Take with meal Valium 2 mg, 1 tab, No Longer Carlos Route: PO, Active 2012 [facility] Drug form: TAB, Daily, Dosing Weight 82.273, kg, PRN as needed for anxiety, Start date: 12/08/12 14:20:00, Duration: 30 day, Stop date: 01/07/13 14:19:00(Same as: Valium) morphine 2 mg, 1 mL, No Longer Carlos Sulfate Route: IV, Active 2012 [facility] Drug form: INJ, Q1H, PRN Pain Score 7-10, Start date: 12/08/12 14:03:00, Duration: 30 day, Stop date: 01/07/13 13:02:00(Same as:MORPhine Sulfate) acetaminophen- 2 tab, Route: No Longer [place] hydrocodone PO, Drug Form: Active 2012 [facility] 325 mg-7.5 mg TAB, Q4H, PRN oral tablet Pain Score 4-6, Start date: 12/08/12 14:03:00, Duration: 30 day, Stop date: 01/07/13 14:02:00Same as [place] 325-7.5mg Do not exceed 4gm/day of acetaminophen. acetaminophen- 1 tab, Route: No Longer Carlos hydrocodone PO, Drug Form: Active 2012 [facility] 325 mg-7.5 mg TAB, Q4H, PRN oral tablet Pain Score 1-3, Start date: 12/08/12 14:02:00, Duration: 30 day, Stop date: 01/07/13 14:01:00Same as [place] 325-7.5mg Do not exceed 4gm/day of acetaminophen. Ancef 1 gm, Route: Inactive Carlos IVPB, ONCE, 2012 Dosing Weight 82.273, kg, Start date: 12/08/12 6:55:00, Duration: 1 doses or times, Stop date: 12/08/12 6:55:00 Lactated 1,000 mL, Inactive Vance Ringers Rate: 25 2012 [facility] Injection IV ml/hr, Infuse 1000 mL over: 40 hr, Route: IV, Dosing Weight 82.273 kg, Total Volume: 1,000, Start date: 12/08/12 6:52:00, Duration: 30 day, Stop date: 01/07/13 6:51:00 cefazolin 1 gm, Route: Inactive [place] (SCIP) + IVPB, Q8H, 2012 [facility] Sodium Dosing Weight Chloride 0.9% 82.273, kg, IV 100 mL Start date: 12/08/12 0:00:00, Duration: 1 doses or times, Stop date: 12/08/12 0:00:00(Same As: Ancef, Kefzol) Sodium 1,000 mL, No Longer [place] Chloride 0.9% Rate: 50 Active 2012 [facility] IV 1,000 mL ml/hr, Infuse over: 20 hr, Route: IV, Dosing Weight 82.273 kg, Total Volume: 1,000, Start date: 12/07/12 16:23:00, Duration: 30 day, Stop date: 01/06/13 16:22:00 insulin SUB-Q, QID, Active regular human Substitution 2012 recombinant Allowed 500 units/mL injectable solution Victoza 6 1.6, SUB-Q, Active mg/mL Daily, 2012 [facility] subcutaneous Substitution injection Allowed trazodone 150 150 mg, 1 tab, Active 11/26/ MH mg oral tablet PO, Bedtime, 2012 30 tab, Substitution Allowed, TAB Vicodin 5/500 2 tab, PO, No Longer oral tablet Bedtime, PRN, Active 2012 [facility] for pain, Substitution Allowed, Maintenance, TAB Valium 2 mg 2 mg, 1 tab, Active 11/26/ MH oral tablet PO, Daily, 2012 PRN, Anxiety, Substitution Allowed, TAB metFORmin 500 500 mg, 1 tab, Active 17/ MH mg oral tablet PO, BID, 2012 tab, Substitution Allowed Allergies, Adverse Reactions, Alerts Substance Category Reaction Severity Reaction Status Date Comments Source type Reported codeine drug Allergy allergy [facility] contrast drug Allergy media allergy [facility] (iodine-bas ed) shellfish food Allergy allergy [facility] Immunizations Immunization Date Given Site Status Last Updated Comments Source Results Order Name Results Value Reference Date Interpretation Comments Source Range ELECTROLYT AGAP 8.9 meq/L 10.0 - 10/28 ES 20.0 [place] ELECTROLYT eGFR 109 10/28 Result Comment: The eGFR is calculated using the CKD-EPI formula. In most young, healthy individuals the eGFR will be >90 mL/ min/1.73m2. The eGFR declines with age. An eGFR of 60-89 may be normal in [facility] mL/min/1.7 /2016 some populations, particularly the elderly, for whom the CKD-EPI formula has not been extensively validated. Use of the eGFR is not recommended in the following populations: [address] Individuals with unstable creatinine concentrations, including patients and those with serious co-morbid conditions. Patients with extremes in muscle mass or diet. The data above are obtained from the National Kidney Disease Education Program (NKDEP) which additionally recommends that when the eGFR is used in patients with extremes of body mass index for purposes of drug dosing, the eGFR should be multiplied by the estimated BMI. ELECTROLYT Potassium 3.9 meq/L 3.5 - 5.1 10/28 ES Lvl [place] ELECTROLYT Chloride Lvl 102 meq/L 95 - 109 10/28 [place] ELECTROLYT CO2 29 meq/L 24 - 32 10/28 [place] ELECTROLYT Calcium Lvl 9.2 mg/dL 8.5 - 10.5 10/28 [place] ELECTROLYT Glucose Lvl 217 mg/dL 70 - 99 10/28 [place] ELECTROLYT BUN 11 mg/dL 7 - 22 10/28 [place] ELECTROLYT Creatinine 0.51 mg/dL 0.50 - 10/28 ES Lvl 1.40 [place] ELECTROLYT Sodium Lvl 136 meq/L 135 - 145 10/28 [place] HEMATOLOGY MCH 31.9 pg 27.0 - 10/28 MH 31.0 [place] HEMATOLOGY Platelet 148 K/CMM 133 - 450 10/28 [place] HEMATOLOGY MPV 9.9 fL 7.4 - 10.4 10/28 [place] HEMATOLOGY MCHC 34.7 g/dL 32.0 - 10/28 MH 36.0 [place] HEMATOLOGY RDW 12.3 % 11.5 - 10/28 MH 14. [place] HEMATOLOGY MCV 92.0 fL 80.0 - 09/18 MH 98.0 [place] HEMATOLOGY Hgb 14.8 g/dL 12.0 - 10/28 MH 16.0 [place] HEMATOLOGY Hct 42.6 % 36.0 - 10/28 MH 48.0 [place] HEMATOLOGY RBC X 10x6 4.63 M/CMM 4.20 - 10/28 MH 5.40 /2016 [place] HEMATOLOGY WBC X 10x3 5.3 K/CMM 3.7 - 10.4 10/28 [place] HEMATOLOGY Eosinophils 1.7 % 0.0 - 4.0 10/28 [place] HEMAT[facility] Lymphocytes 2.1 K/CMM 1.0 - 5.5 10/28 MH # [place] HEMATOLOGY Basophils 0.7 % 0.0 - 1.0 10/28 [place] HEMATOLOGY Segs-Bands # 2.6 K/CMM 1.5 - 8.1 10/28 [facility] Lymphocytes 40.3 % 20.0 - 10/28 MH 40.0 [place] HEMATOLOGY Monocytes 8.4 % 2.0 - 12.0 10/28 [place] HEMATOLOGY Segs 48.9 % 45.0 - 10/28 MH 75.0 [facility] Monocytes # 0.4 K/CMM 0.0 - 0.8 10/28 [place] HEMATOLOGY Eosinophils 0.1 K/CMM 0.0 - 0.5 10/28 [facility] # [place] Ext Lower Ext Lower Patient Name: CELESTE PANTOJA 10/28 - [facility] Venous Venous /2016 - [place] Doppler Doppler : 1960; Age: 56 years Female Bilat US Bilat US MR: [id number] Read by: Carter Mcmahon MD Dictated Date/time: 10/28/16 14:09 Study: Ext Lower Venous Doppler Bilat US 10/28/2016 1:20 PM CDT Electronically Signed by: Carter Mcmahon MD 10/28/16 14 :09 FINAL REPORT CLINICAL INDICATION: - bilat leg pain and swelling. COMPARISON: None TECHNIQUE: Sonographic evaluation of the bilateral lower extremity veins was performed using high resolution B-mode imaging, along with pulse and color Doppler imaging. FINDINGS: Right lower extremity: The common femoral vein, femoral vein, popliteal vein and visualized posterior tibial/calf veins are patent and compressible. The saphenofemoral junction and visualized greater saphenous vein are patent and compressible. Left lower extremity: The common femoral vein, superficial femoral vein, popliteal vein and visualized posterior tibial/calf veins are patent and compressible The saphenofemoral junction and visualized greater saphenous vein are patent and compressible. IMPRESSION: No evidence of deep venous thrombosis within the bilateral lower extremities. SL: [id number] BEDSIDE Glucose POC 233 mg/dL 70 - 99 12/09 CT 1Interpretive GLUCOSE Data: [facility] TESTING Upper Reportable Limit: 200 mg/dL. BEDSIDE Gluc POC Notified 12/09 GLUCOSE Comment 1 RN/ [facility] TESTING BEDSIDE Glucose POC 153 mg/dL 70 - 99 12/09 CT 2Interpretive GLUCOSE Data: [facility] TESTING Upper Reportable Limit: 200 mg/dL. BEDSIDE Glucose POC 227 mg/dL - 99 12/09 CT 3Interpretive GLUCOSE Data: [facility] TESTING Upper Reportable Limit: 200 mg/dL. BEDSIDE Gluc POC Notified 12/08 GLUCOSE Comment 1 RN/ [facility] TESTING CHEMISTRY U Preg Negative Negative 12/08 Normal [facility] (12/08/2012 05:30:00) Spine Spine CERVICAL SPINE RADIOGRAPH SINGLE VIEW 12/08 - cervical 1 cervical - [facility] view view INDICATION: Cervical pain Read by: Shalom Hatch Dictated Date/time: 12/08/12 11:22 Electronically Signed by: Shalom Hatch MD 12/08/12 11:24 FINAL REPORT COMPARISON: None IMPRESSION: Pacing intraoperative fluoroscopic spot radiograph demonstrates anterior fusion from C5 through C7, with plate and screw constructs. Interbody spacers are present at C5-C6 and C6-C7. Vertebral body alignment is within normal limits. SL: 16 CHEMISTRY BUN 11 mg/dL 7 - 22 11/26 Normal [facility] CHEMISTRY CO2 28 meq/L 24 - 32 11/26 Normal [facility] CHEMISTRY AGAP 12.9 meq/L 10.0 - 11/26 Normal 20.0 [facility] CHEMISTRY Glucose Lvl 274 mg/dL 70 - 99 11/26 CT 5Interpretive Data: Adult reference range values reflect the clinical guidelines of the [place] [employer]. [facility] CHEMISTRY Creatinine 0.6 mg/dL 0.5 - 1.4 11/26 Normal Lvl [facility] CHEMISTRY Calcium Lvl 9.0 mg/dL 8.5 - 10.5 11/26 Normal [facility] CHEMISTRY Sodium Lvl 142 meq/L 135 - 145 11/26 Normal [facility] CHEMISTRY Potassium 3.9 meq/L 3.5 - 5.1 11/26 Normal Lvl [facility] CHEMISTRY Chloride Lvl 105 meq/L 95 - 109 11/26 Normal [facility] CHEMISTRY eGFR 107 11/26 4Result Comment: The eGFR is calculated using the CKD-EPI formula. In most young, healthy individuals the eGFR will be >90 mL/ min/1.73m2. The eGFR declines with age. An eGFR of 60-89 may be normal in mL/min/1.7 some populations, particularly the elderly, for whom the CKD-EPI formula has not been extensively validated. Use of the eGFR is not recommended in the following populations: [facility] 3m2 Individuals with unstable creatinine concentrations, including patients and those with serious co-morbid conditions. Patients with extremes in muscle mass or diet. The data above are obtained from the National Kidney Disease Education Program (NKDEP) which additionally recommends that when the eGFR is used in patients with extremes of body mass index for purposes of drug dosing, the eGFR should be multiplied by the estimated BMI. Vital Signs Vital Sign Value Date Comments Source Temperature Oral (F) 98.7 F 10/28/2016 [facility] Heart Rate 71 10/28/2016 [facility] Systolic (mm Hg) 127 10/28/2016 [facility] Diastolic (mm Hg) 74 10/28/2016 [facility] Respitory Rate 18 10/28/2016 [facility] Systolic (mm Hg) 150 10/28/2016 [facility] Diastolic (mm Hg) 69 10/28/2016 [facility] Temperature Oral (F) 98.1 F 10/28/2016 [facility] Respitory Rate 20 10/28/2016 [facility] Heart Rate 69 10/28/2016 [facility] Weight 78.182 10/28/2016 [facility] Height 154.94 cm 10/28/2016 [facility] BMI Calculated 32.57 10/28/2016 [facility] Heart Rate 70 12/09/2012 [facility] Respitory Rate 16 12/09/2012 [facility] Temperature Oral (F) 98.1 F 12/09/2012 [facility] Diastolic (mm Hg) 64 12/09/2012 [facility] Systolic (mm Hg) 104 12/09/2012 [facility] Systolic (mm Hg) 120 12/09/2012 [facility] Diastolic (mm Hg) 68 12/09/2012 [facility] Respitory Rate 16 12/09/2012 [facility] Heart Rate 75 12/09/2012 [facility] Temperature Oral (F) 98.9 F 12/09/2012 [facility] Respitory Rate 18 12/09/2012 [facility] Systolic (mm Hg) 136 12/09/2012 [facility] Diastolic (mm Hg) 67 12/09/2012 [facility] Temperature Oral (F) 97.9 F 12/09/2012 [facility] Heart Rate 62 12/09/2012 [facility] Weight 82.273 12/08/2012 [facility] Height 154.94 cm 12/08/2012 [facility] Height 157.48 cm 11/26/2012 [facility] Weight 82.273 11/26/2012 [facility] Encounters Location Location Encounter Encounter Reason Attending ADM DC Status Source Details Type Number For Provider Date Date Visit Inpatient [id number] LETHA 12/08 12/09 Active [facility] CARLOS /2012 [facility] Emergency [id number] Abdiwab 10/28 10/28 Markie Herman /2016 [facility] Procedures Procedure Code Date Perfomer Comments Source Excision of 80.51 [facility] Intervertebral Disc 3 Fusion or Refusion of 81.62 [facility] 2-3 Vertebrae 3 Other Cervical Fusion 81.02 [facility] of the Anterior 3 Column, Anterior Technique Ablation [id number] [facility] Cholecystectomy [id number] [facility] Colonoscopy [id number] [facility] CTR - Carpal tunnel [id number] [facility] release Operation [id number] [facility] Release of tennis [id number] [facility] elbow Release of trigger [id number] [facility] finger Rotator cuff repair [id number] [facility] Ablation [id number] [facility] Cholecystectomy [id number] [place] Colonoscopy [id number] [facility] CTR - Carpal tunnel [id number] [facility] release Operation [id number] [facility] Release of tennis [id number] [facility] elbow Release of trigger [id number] [facility] finger Rotator cuff repair [id number] [facility]
--- OUTSIDE RECORDS SUMMARY | 2017-08-19 12:49 | XMS REPORT | Summary of Care ---
:1960 Author Organization [facility] Address [address] [place] [address]- Encounter HQ Radha_jamey(FIN) [phone] Date(s): 10/28/16 - 10/28/[address] [phone] Discharge Diagnosis: Localized edema Discharge Disposition: Home or Self Care Attending Physician: Estela Herman MD Vital Signs Most recent to oldest [Reference Range]: 1 2 Height 154.94 cm (10/28/16 1:17 PM) Temperature Oral [96.4-99.1 DegF] 98.7 DegF 98.1 DegF (10/28/16 4:34 PM) (10/28/16 1:17 PM) Blood Pressure [90-140/60-90 mmHg] 127/74 mmHg 150/69 mmHg (10/28/16 4:34 PM) *HI* (10/28/16 1:17 PM) Respiratory Rate [14-20 BRMIN] 18 BRMIN 20 BRMIN (10/28/16 4:34 PM) (10/28/16 1:17 PM) Peripheral Pulse Rate [60-100 bpm] 71 bpm 69 bpm (10/28/16 4:34 PM) (10/28/16 1:17 PM) Weight 78.182 kg (10/28/16 1:17 PM) Body Mass Index 32.57 m2 (10/28/16 1:17 PM) Problem List Condition Effective Dates Status Health Status Informant Anxiety depression(Confirmed) Active Back pain(Confirmed) Active Cough(Confirmed)1 Active Diabetes mellitus(Confirmed) Active Heartburn symptom(Confirmed) Active Sleep apnea(Confirmed) Active 1sinus drainage Allergies, Adverse Reactions, Alerts Substance Reaction Severity Status codeine Active contrast media (iodine-based) Active shellfish Active Medications No data available for this section Results ELECTROLYTES Most recent to oldest [Reference Range]: 1 Sodium Lvl [135-145 mEq/L] 136 mEq/L (10/28/16 2:39 PM) Potassium Lvl [3.5-5.1 mEq/L] 3.9 mEq/L (10/28/16 2:39 PM) Chloride Lvl [95-109 mEq/L] 102 mEq/L (10/28/16 2:39 PM) CO2 [24-32 mEq/L] 29 mEq/L (10/28/16 2:39 PM) AGAP [10.0-20.0 mEq/L] 8.9 mEq/L *LOW* (10/28/16 2:39 PM) CHEM PANEL Most recent to oldest [Reference Range]: 1 Creatinine Lvl [0.50-1.40 mg/dL] 0.51 mg/dL (10/28/16 2:39 PM) eGFR 109 mL/min/1.73m2 1 *NA* (10/28/16 2:39 PM) BUN [7-22 mg/dL] 11 mg/dL (10/28/16 2:39 PM) Glucose Lvl [70-99 mg/dL] 217 mg/dL *HI* (10/28/16 2:39 PM) Calcium Lvl [8.5-10.5 mg/dL] 9.2 mg/dL (10/28/16 2:39 PM) 1Result Comment: The eGFR is calculated using the CKD-EPI formula. In most young , healthy individualsthe eGFR will be >90 mL/min/1.73m2. The eGFR declines with age. An eGFR of 60-89 may be normal in some populations, particularly the elderly, for whom the CKD-EPI formula has not been extensively validated. Use of the eGFR is not recommended in the following populations: Individuals with unstable creatinine concentrations, including patients and those with serious co-morbid conditions. Patients with extremes in muscle mass or diet. The data above are obtained from the National Kidney Disease Education Program ( NKDEP) which additionally recommends that when the eGFR is used in patients with extremes of body mass index for purposesof drug dosing, the eGFR should be multiplied by the estimated BMI.HEMATOLOGY Most recent to oldest [Reference Range]: 1 WBC [3.7-10.4 K/CMM] 5.3 K/CMM (10/28/16 2:39 PM) RBC [4.20-5.40 M/CMM] 4.63 M/CMM (10/28/16 2:39 PM) Hgb [12.0-16.0 g/dL] 14.8 g/dL (10/28/16 2:39 PM) Hct [36.0-48.0 %] 42.6 % (10/28/16 2:39 PM) MCV [80.0-98.0 fL] 92.0 fL (10/28/16 2:39 PM) MCH [27.0-31.0 pg] 31.9 pg *HI* (10/28/16 2:39 PM) MCHC [32.0-36.0 g/dL] 34.7 g/dL (10/28/16 2:39 PM) RDW [11.5-14.5 %] 12.3 % (10/28/16 2:39 PM) Platelet [133-450 K/CMM] 148 K/CMM (10/28/16 2:39 PM) MPV [7.4-10.4 fL] 9.9 fL (10/28/16 2:39 PM) Segs [45.0-75.0 %] 48.9 % (10/28/16 2:39 PM) Lymphocytes [20.0-40.0 %] 40.3 % *HI* (10/28/16 2:39 PM) Monocytes [2.0-12.0 %] 8.4 % (10/28/16 2:39 PM) Eosinophils [0.0-4.0 %] 1.7 % (10/28/16 2:39 PM) Basophils [0.0-1.0 %] 0.7 % (10/28/16 2:39 PM) Segs-Bands # [1.5-8.1 K/CMM] 2.6 K/CMM (10/28/16 2:39 PM) Lymphocytes # [1.0-5.5 K/CMM] 2.1 K/CMM (10/28/16 2:39 PM) Monocytes # [0.0-0.8 K/CMM] 0.4 K/CMM (10/28/16 2:39 PM) Eosinophils # [0.0-0.5 K/CMM] 0.1 K/CMM (10/28/16 2:39 PM) Immunizations No data available for this section Procedures Procedure Date Related Diagnosis Body Site Ablation Cholecystectomy Colonoscopy CTR - Carpal tunnel release Operation Release of tennis elbow Release of trigger finger Rotator cuff repair Social History Social History Type Response Smoking Status Never smoker; Exposure to Tobacco Smoke None; Cigarette Smoking Last 365 Days No; Reg Smoking Cessation Counseling No Assessment and Plan No data available for this section
--- OUTSIDE RECORDS SUMMARY | 2017-08-19 12:49 | XMS REPORT | CCD ---
:1960 Author Organization [facility] Care Team Providers Name Role Phone Aden Ulrich Referring Provider Allergies, Adverse Reactions, Alerts Substance Reaction Status codeine Active contrast media (iodine-based) Active shellfish Active Problem List Condition Effective Dates Status Anxiety depression Active Back pain Active Cough1 Active Diabetes mellitus Active Heartburn symptom Active Sleep apnea Active 1sinus drainage Medications Medication Instructions Start Date End Date Status [place] 7.5/325 oral 1-2 tab, PO, Q4-6H, 12/09/2012 12/14/2012 Ordered tablet PRN, 50 tab, Pain, Substitution Allowed, Maintenance insulin regular human SUB-Q, QID, 11/26/2012 Ordered recombinant 500 Substitution Allowed units/mL injectable solution morphine Sulfate 2 mg, 1 mL, Route: 12/08/2012 12/09/2012 Discontinued IV, Drug form: INJ, Q1H, PRN Pain Score 7-10, Start date: 12/08/12 14:03:00, Duration: 30 day, Stop date: 01/07/13 13:02:00(Same as:MORPhine Sulfate) acetaminophen-hydrocod 2 tab, Route: PO, 12/08/2012 12/09/2012 Discontinued one 325 mg-7.5 mg oral Drug Form: TAB, Q4H, tablet PRN Pain Score 4-6, Start date: 12/08/12 14:03:00, Duration: 30 day, Stop date: 01/07/13 14:02:00Same as [place] 325-7.5mg Do not exceed 4gm/day of acetaminophen. trazodone 150 mg oral 150 mg, 1 tab, PO, 11/26/2012 Ordered tablet Bedtime, 30 tab, Substitution Allowed, TAB Vicodin 5/500 oral 2 tab, PO, Bedtime, 11/26/2012 12/09/2012 Discontinued tablet PRN, for pain, Substitution Allowed, Maintenance, TAB Valium 2 mg oral 2 mg, 1 tab, PO, 11/26/2012 Ordered tablet Daily, PRN, Anxiety, Substitution Allowed, TAB metFORmin 500 mg oral 500 mg, 1 tab, PO, 11/26/2012 Ordered tablet BID, 30 tab, Substitution Allowed acetaminophen-hydrocod 1 tab, Route: PO, 12/08/2012 12/09/2012 Discontinued one 325 mg-7.5 mg oral Drug Form: TAB, Q4H, tablet PRN Pain Score 1-3, Start date: 12/08/12 14:02:00, Duration: 30 day, Stop date: 01/07/13 14:01:00Same as [place]acea 325-7.5mg Do not exceed 4gm/day of acetaminophen. Victoza 6 mg/mL 1.6, SUB-Q, Daily, 11/26/2012 Ordered subcutaneous injection Substitution Allowed Ancef 1 gm, Route: IVPB, 12/08/2012 12/08/2012 Voided With Results ONCE, Dosing Weight 82.273, kg, Start date: 12/08/12 6:55:00, Duration: 1 doses or times, Stop date: 12/08/12 6:55:00 trazodone 150 mg, 3 tab, Route: 12/08/2012 12/09/2012 Discontinued PO, Drug form: TAB, Bedtime, Dosing Weight 82.273, kg, Start date: 12/08/12 21:00:00, Duration: 30 day, Stop date: 01/06/13 21:00:00(Same As: Desyrel) metFORmin 500 mg oral 500 mg, 1 tab, Route: 12/08/2012 12/09/2012 Discontinued tablet PO, Drug form: TAB, BID, Dosing Weight 82.273, kg, Start date: 12/08/12 17:00:00, Duration: 30 day, Stop date: 01/07/13 9:00:00(Same as: Glucophage) Take with meal Valium 2 mg, 1 tab, Route: 12/08/2012 12/09/2012 Discontinued PO, Drug form: TAB, Daily, Dosing Weight 82.273, kg, PRN as needed for anxiety, Start date: 12/08/12 14:20:00, Duration: 30 day, Stop date: 01/07/13 14:19:00(Same as: Valium) Lactated Ringers 1,000 mL, Rate: 25 12/08/2012 12/08/2012 Discontinued Injection IV 1000 mL ml/hr, Infuse over: 40 hr, Route: IV, Dosing Weight 82.273 kg, Total Volume: 1,000, Start date: 12/08/12 6:52:00, Duration: 30 day, Stop date: 01/07/13 6:51:00 Medrol Dosepak 4 mg As directed on package instructions, PO, Daily, Take with or without food, 1 Pack, Substitution Allowed 12/09/2012 12/15/2012 Ordered Tablet Take with or without food Sodium Chloride 0.9% 1,000 mL, Rate: 50 12/07/2012 12/09/2012 Discontinued IV 1,000 mL ml/hr, Infuse over: 20 hr, Route: IV, Dosing Weight 82.273 kg, Total Volume: 1,000, Start date: 12/07/12 16:23:00, Duration: 30 day, Stop date: 01/06/13 16:22:00 cefazolin (SCIP) + 1 gm, Route: IVPB, 12/08/2012 12/08/2012 Completed Sodium Chloride 0.9% Q8H, Dosing Weight IV 100 mL 82.273, kg, Start date: 12/08/12 0:00:00, Duration: 1 doses or times, Stop date: 12/08/12 0:00:00(Same As: Ancef, Kefzol) Vital Signs Most recent to oldest 1 2 3 [Reference Range]: Height 154.94 cm 157.48 cm (12/08/2012 14:11:00) (11/26/2012 09:55:00) Temperature Oral 98.1 DegF 98.9 DegF 97.9 DegF [96.4-99.1 DegF] (12/09/2012 12:00:00) (12/09/2012 08:00:00) (12/09/2012 04: 43:00) Systolic Blood Pressure 104 mmHg 120 mmHg 136 mmHg [90-140 mmHg] (12/09/2012 12:00:00) (12/09/2012 08:00:00) (12/09/2012 04:43: 00) Diastolic Blood Pressure 64 mmHg 68 mmHg 67 mmHg [60-90 mmHg] (12/09/2012 12:00:00) (12/09/2012 08:00:00) (12/09/2012 04:43: 00) Respiratory Rate [14-20 16 BRMIN 16 BRMIN 18 BRMIN BRMIN] (12/09/2012 12:00:00) (12/09/2012 08:00:00) (12/09/2012 04:43:00) Peripheral Pulse Rate 70 bpm 75 bpm 62 bpm [60-100 bpm] (12/09/2012 12:00:00) (12/09/2012 08:00:00) (12/09/2012 04:43: 00) Weight 82.273 kg 82.273 kg (12/08/2012 14:11:00) (11/26/2012 09:55:00) Results BEDSIDE GLUCOSE TESTING Most recent to 1 2 3 [Reference Range]: Glucose POC [70-99 233 mg/dL 1 153 mg/dL 2 227 mg/dL 3 mg/dL] *HI* *HI* *HI* (12/09/2012 11:33:00) (12/09/2012 06:02:00) (12/08/2012 20:32:00) Gluc POC Comment 1 Notified RN/MD Notified RN/MD *NA* *NA* (12/09/2012 06:02:00) (12/08/2012 16:17:00) 1Interpretive Data: Upper Reportable Limit: 200 mg/dL.2Interpretive Data: Upper Reportable Limit: 200 mg/dL.3Interpretive Data: Upper Reportable Limit: 200 mg/dL.CHEMISTRY Most recent to [Reference Range]: 1 2 3 Sodium Lvl [135-145 mEq/L] 142 mEq/L (11/26/2012 10:45:28) Potassium Lvl [3.5-5.1 mEq/L] 3.9 mEq/L (11/26/2012 10:45:28) Chloride Lvl [95-109 mEq/L] 105 mEq/L (11/26/2012 10:45:28) CO2 [24-32 mEq/L] 28 mEq/L (11/26/2012 10:45:28) AGAP [10.0-20.0 mEq/L] 12.9 mEq/L (11/26/2012 10:45:28) Creatinine Lvl [0.5-1.4 mg/dL] 0.6 mg/dL (11/26/2012 10:45:28) eGFR 107 mL/min/1.73m2 4 *NA* (11/26/2012:45:28) BUN [7-22 mg/dL] 11 mg/dL (11/26/2012 10:45:28) Glucose Lvl [70-99 mg/dL] 274 mg/dL 5 *HI* (11/26/2012:45:28) Calcium Lvl [8.5-10.5 mg/dL] 9.0 mg/dL (11/26/2012 10:45:28) U Preg [Negative] Negative (12/08/2012 05:30:00) 4Result Comment: The eGFR is calculated using [...] eGFR should be multiplied by the estimated BMI.5Interpretive Data: Adult reference range values reflect the clinical guidelines of the [place] [employer]. Procedures Procedures Date Related Diagnosis Ablation Cholecystectomy Colonoscopy CTR - Carpal tunnel release Operation Release of tennis elbow Release of trigger finger Rotator cuff repair
--- OUTSIDE RECORDS SUMMARY | 2017-08-19 12:49 | XMS REPORT | CCD ---
:1960 Author Organization [facility] Care Team Providers Name Role Phone Aden Ulrich Referring Provider Allergies, Adverse Reactions, Alerts Substance Reaction Status codeine Active contrast media (iodine-based) Active shellfish Active Problem List Condition Effective Dates Status Anxiety depression Active Back pain Active Cough1 Active Diabetes mellitus Active Heartburn symptom Active Sleep apnea Active 1sinus drainage Medications Medication Instructions Start Date End Date Status [place] 7.5/325 oral 1-2 tab, PO, Q4-6H, 12/09/2012 [...] 30 day, Stop date: 01/07/13 14:02:00Same as [place] 325-7.5mg Do not exceed 4gm/day of acetaminophen. [...] 30 day, Stop date: 01/07/13 14:01:00Same as [place] 325-7.5mg Do not exceed 4gm/day of acetaminophen. [...] (11/26/2012 10:45:28) AGAP [10.0-20.0 mEq/L] 12.9 mEq/L (11/26/2012:45:28) Creatinine Lvl [0.5-1.4 mg/dL] 0.6 mg/dL (11/26/2012:45:28) eGFR 107 mL/min/1.73m2 4 *NA* (11/26/2012:45:28) BUN [7-22 mg/dL] 11 mg/dL (11/26/2012 10:45:28) Glucose Lvl [70-99 mg/dL] 274 mg/dL 5 *HI* (11/26/2012:45:28) Calcium Lvl [8.5-10.5 mg/dL] 9.0 mg/dL (11/26/2012:45:28) U Preg [Negative] Negative (12/08/2012 05:30:00) 4Result [...] values reflect the clinical guidelines of the [place] Diabetes Association. Procedures Procedures Date Related Diagnosis Ablation Cholecystectomy Colonoscopy CTR - Carpal tunnel release Excision of Intervertebral Disc 12/08/2012 00:00:00 Fusion or Refusion of 2-3 Vertebrae 12/08/2012 00:00:00 Operation Other Cervical Fusion of the Anterior Column, 12/08/2012 00:00:00 Anterior Technique Release of tennis elbow Release of trigger finger Rotator cuff repair
--- OUTSIDE RECORDS SUMMARY | 2017-08-19 12:49 | XMS REPORT | CCD ---
:[address] [facility] Care Team Providers Name Role Phone Aden Ulrich Referring Provider Allergies, Adverse Reactions, Alerts Substance Reaction Status codeine Active contrast media (iodine-based) Active shellfish Active Problem List Condition Effective Dates Status Anxiety depression Active Back pain Active Cough1 Active Diabetes mellitus Active Heartburn symptom Active Sleep apnea Active 1sinus drainage Medications Medication Instructions Start Date End Date Status [place] 7.5/325 oral 1-2 tab, PO, Q4-6H, 12/09/2012 [...] 30 day, Stop date: 01/07/13 14:02:00Same as [place] 325-7.5mg Do not exceed 4gm/day of acetaminophen. [...] 30 day, Stop date: 01/07/13 14:01:00Same as [place] 325-7.5mg Do not exceed 4gm/day of acetaminophen. [...] values reflect the clinical guidelines of the [place] Diabetes [employer]. Procedures Procedures Date Related Diagnosis Ablation Cholecystectomy Colonoscopy CTR - Carpal tunnel release Operation Release of tennis elbow Release of trigger finger Rotator cuff repair
--- OUTSIDE RECORDS SUMMARY | 2017-08-19 12:49 | XMS REPORT | CCD ---
:1960 Author Organization [facility] Care Team Providers Name Role Phone Aden Ulrich Referring Provider Allergies, Adverse Reactions, Alerts Substance Reaction Status codeine Active contrast media (iodine-based) Active shellfish Active Problem List Condition Effective Dates Status Anxiety depression Active Back pain Active Cough1 Active Diabetes mellitus Active Heartburn symptom Active Sleep apnea Active 1sinus drainage Medications Medication Instructions Start Date End Date Status [place] 7.5/325 oral 1-2 tab, PO, Q4-6H, 12/09/2012 [...] 30 day, Stop date: 01/07/13 14:02:00Same as [place] 325-7.5mg Do not exceed 4gm/day of acetaminophen. [...] 30 day, Stop date: 01/07/13 14:01:00Same as [place] 325-7.5mg Do not exceed 4gm/day of acetaminophen. [...] (11/26/2012 10:45:28) eGFR 107 mL/min/1.73m2 4 *NA* (11/26/2012 10:45:28) BUN [7-22 mg/dL] 11 mg/dL (11/26/2012 10:45:28) Glucose Lvl [70-99 mg/dL] 274 mg/dL 5 *HI* (11/26/2012 10:45:28) Calcium Lvl [8.5-10.5 mg/dL] 9.0 mg/dL (11/26/2012 [...] values reflect the clinical guidelines of the [place] [employer]. Procedures Procedures Date Related Diagnosis Ablation Cholecystectomy Colonoscopy CTR - Carpal tunnel release Operation Release of tennis elbow Release of trigger finger Rotator cuff repair
--- OUTSIDE RECORDS SUMMARY | 2017-08-19 12:49 | XMS REPORT | CCD ---
:1960 Author Organization [facility] Care Team Providers Name Role Phone Aden Ulrich Referring Provider Allergies, Adverse Reactions, Alerts Substance Reaction Status codeine Active contrast media (iodine-based) Active shellfish Active Problem List Condition Effective Dates Status Anxiety depression Active Back pain Active Cough1 Active Diabetes mellitus Active Heartburn symptom Active Sleep apnea Active 1sinus drainage Medications Medication Instructions Start Date End Date Status [place] 7.5/325 oral 1-2 tab, PO, Q4-6H, 12/09/2012 [...] 30 day, Stop date: 01/07/13 14:02:00Same as [place] 325-7.5mg Do not exceed 4gm/day of acetaminophen. [...] 30 day, Stop date: 01/07/13 14:01:00Same as [place] 325-7.5mg Do not exceed 4gm/day of acetaminophen. [...] the clinical guidelines of the [place] Diabetes [employer]. Procedures Procedures Date Related Diagnosis Ablation Cholecystectomy Colonoscopy CTR - Carpal tunnel release Operation Release of tennis elbow Release of trigger finger Rotator cuff repair
--- OUTSIDE RECORDS SUMMARY | 2017-08-19 12:49 | XMS REPORT | CCD ---
:1960 Author Organization [facility] Care Team Providers Name Role Phone Aden Ulrich Referring Provider Allergies, Adverse Reactions, Alerts Substance Reaction Status codeine Active contrast media (iodine-based) Active shellfish Active Problem List Condition Effective Dates Status Anxiety depression Active Back pain Active Cough1 Active Diabetes mellitus Active Heartburn symptom Active Sleep apnea Active 1sinus drainage Medications Medication Instructions Start Date End Date Status [place] 7.5/325 oral 1-2 tab, PO, Q4-6H, 12/09/2012 [...] 30 day, Stop date: 01/07/13 14:02:00Same as [place] 325-7.5mg Do not exceed 4gm/day of acetaminophen. [...] 30 day, Stop date: 01/07/13 14:01:00Same as [place] 325-7.5mg Do not exceed 4gm/day of acetaminophen. [...] values reflect the clinical guidelines of the [place] Diabetes [employer]. Procedures Procedures Date Related Diagnosis Ablation Cholecystectomy Colonoscopy CTR - Carpal tunnel release Operation Release of tennis elbow Release of trigger finger Rotator cuff repair
[2017-08-19 13:39] LABS: Absolute Lymphocytes (CBC) 1.6 K/uL (0.7-4.9); Absolute Monocytes 0.3 K/uL (0.1-1.3); Absolute Neutrophil 2.3 K/uL (1.8-8.0); Basophils % 0.6 % (0-1.3); Eosinophils % 0.9 % (0-4.4); Hematocrit 38.5 % (36.0-45.0); MCH 32.2 pg (27.0-35.0); MCV 92.7 fL (80-100); MPV 10.5 fL (7.6-11.3); Monocytes % 7.6 % (3.3-12.3); RBC Red Blood Cell Count 4.15 M/uL (3.86-4.86)
[2017-08-19] MEDS ORDERED: NA CHLORIDE 0.9% 1,000 ML ONE (13:47)
[2017-08-19 13:56] LABS: Urine Blood NEGATIVE (NEG); Urine Glucose 3+ (NEG); Urine Protein NEGATIVE (NEG); Urine pH 6.5 (5.0-7.0)
[2017-08-19 13:57] LABS: Urine Bacteria <20 /HPF (<20); Urine Culture Reflex Order NOT NEEDED; Urine RBC <5 /HPF (NONE SEEN)
[2017-08-19 14:00] LABS: ALT/SGPT 64 U/L (12-78); AST/SGOT 37 U/L (15-37); Albumin 3.6 g/dL (3.4-5.0); Alkaline Phosphatase 161 U/L (45-117); Amylase Level 63 U/L (25-115); BUN Blood Urea Nitrogen 10 mg/dL (7-18); Bicarbonate 29 mmol/L (21-32); Bilirubin Direct 0.1 mg/dL (0-0.2); Bilirubin Total 0.5 mg/dL (0.2-1.0); Glucose Level 306 mg/dL (74-106); Lipase 424 U/L (73-393); Potassium 3.6 mmol/L (3.5-5.1); Protein, Total 7.4 g/dL (6.4-8.2); Sodium Level 138 mmol/L (136-145)
[2017-08-19] MEDS ORDERED: KETOROLAC 30 MG/ML INJ ONE (14:13)
--- NOTE | 2017-08-19 14:38 | RAD REPORT ---
EXAM DESCRIPTION: CT - Stone Protocol - 08/19/2017 1:58 pm CLINICAL HISTORY: Abdominal pain. Right flank pain x2 days COMPARISON: June 2017 TECHNIQUE: Computed axial tomography of the abdomen pelvis was obtained without oral or IV contrast. Lack of IV and oral contrast limits evaluation of solid organs, bowel, and vessels. Coronal reformat curt images were obtained and reviewed. All CT scans are performed using dose optimization technique as appropriate and may include automated exposure control or mA/KV adjustment according to patient size. FINDINGS: Several right renal calculi are present. Hydronephrosis is not seen. A ureteral calculus i s not visualized. A bladder calculus is not noted. A left renal calculus is not seen. The gallbladder has been removed. The left and caudate lobes of the liver are prominent. This can indicate cirrhosis and should be gordon elated. The spleen, pancreas and adrenals appear grossly normal. There is no evidence of diverticulitis. IMPRESSION: Nonobstructing right renal calculi
[2017-08-19] MEDS ORDERED: CYCLOBENZAPRINE 10 MG TAB ONE (15:28)
[2017-08-19] MEDS ORDERED: INSULIN -REGULAR HUMAN 50 UNIT/0.5 ML ML ONE (15:29)
--- NOTE | 2017-08-19 16:31 | ER ---
Nurse's Notes [facility] Name: Jeannie Giron Age: 57 yrs Sex: Female : 1960 Arrival Date: 08/19/2017 Time: 12:40 Bed 16 Private MD: Jerry Genao C Diagnosis: Diabetes mellitus due to underlying condition with hyperglycemia;Unspecified abdominal pain Presentation: 08/19 12:59 Presenting complaint: Patient states: Right flank pain for 2 days. Reports diarrhea 1 aj week ago that has resolved. Transition of care: patient was not received from another setting of care. Onset of symptoms was August 17, 2017. Risk Assessment: Do you want to hurt yourself or someone else? Patient reports no desire to harm self or others. Initial Sepsis Screen: Does the patient meet any 2 criteria? No. Patient's initial sepsis screen is negative. Does the patient have a suspected source of infection? No. Patient's initial sepsis screen is negative. Care prior to arrival: None. 12:59 Method Of Arrival: Ambulatory aj 12:59 Acuity: SHOSHANA 3 aj Triage Assessment: 13:02 General: Appears in no apparent distress. comfortable, Behavior is calm, cooperative, aj appropriate for age. Pain: Complains of pain in posterior aspect of right lateral abdomen and anterior aspect of right lateral abdomen. Neuro: Level of Consciousness is awake, alert, obeys commands, Oriented to person, place, time, situation, Appropriate for age. Respiratory: Airway is patent Respiratory effort is even, unlabored, Respiratory pattern is regular, symmetrical. GI: Abdomen is obese. : Reports pain in right flank(s). Derm: Skin is intact, is healthy with good turgor, Skin is pink, warm \T\ dry. normal. 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 LMP N/A - Post-menopause aj Historical: - Allergies: 13:02 Hydrocodone-Acetaminophen; aj 13:02 Iodinated Contrast Media - IV Dye; aj 13:02 Iodine; aj 13:02 Rocephin (rash); aj 13:02 SHELLFISH; aj 13:02 Ciprofloxacin; aj 13:02 Levaquin; aj 13:00 Codeine; rb1 - Home Meds: 13:02 dicyclomine 10 mg Oral cap 2 caps twice a day [Active]; metformin 1,000 mg Oral TG24 1 aj tab 2 times per day [Active]; pantoprazole 40 mg Oral TbEC 1 tab once daily [Active]; 13:00 esomeprazole magnesium 40 mg oral cpDR 1 cap once daily [Active]; tamsulosin 0.4 mg rb1 oral cp24 1 cap once daily [Active]; - PMHx: 13:02 Diabetes - NIDDM; Kidney stones; aj 13:00 polyps; rb1 - PSHx: 13:02 Cholecystectomy; Tonsillectomy; neck; aj 13:00 Lithotripsy; Carpal Tunnel Repair; rb1 - Immunization history:: Adult Immunizations up to date. - Social history:: Smoking status: Patient/guardian denies using tobacco. - Ebola Screening: : Patient negative for fever greater than or equal to 101.5 degrees Fahrenheit, and additional compatible Ebola Virus Disease symptoms Patient denies exposure to infectious person Patient denies travel to an Ebola-affected area in the 21 days before illness onset No symptoms or risks identified at this time. Screenin:00 Abuse screen: Denies threats or abuse. Nutritional screening: No deficits noted. rb1 Tuberculosis screening: No symptoms or risk factors identified. Fall Risk None identified. Assessment: 13:00 General: Appears in no apparent distress. comfortable, Behavior is calm, cooperative, rb1 Denies fever. Pain: Complains of pain in right upper quadrant Pain radiates to right mid back Pain currently is 7 out of 10 on a pain scale. Pain began this morning. Neuro: Level of Consciousness is awake, alert, obeys commands, Oriented to person, place, time, situation. Cardiovascular: Capillary refill < 3 seconds is brisk in bilateral fingers. Respiratory: Airway is patent Respiratory effort is even, unlabored, Respiratory pattern is regular, symmetrical. GI: Reports nausea. : No signs and/or symptoms were reported regarding the genitourinary system. Derm: Skin is pink, warm \T\ dry. Musculoskeletal: Range of motion: intact in all extremities. 13:48 Reassessment: Patient appears in no apparent distress at this time. No changes from rb1 previously documented assessment. pt. requested pain medication; provider notified. 13:50 Reassessment: Pt. went to CT. rb1 14:45 Reassessment: Patient appears in no apparent distress at this time. Patient and/or rb1 family updated on plan of care and expected duration. Pain level reassessed. Patient is alert, oriented x 3, equal unlabored respirations, skin warm/dry/pink. 15:44 Reassessment: Patient appears in no apparent distress at this time. No changes from rb1 previously documented assessment. 16:40 Reassessment: Patient appears in no apparent distress at this time. Patient and/or rb1 family updated on plan of care and expected duration. Pain level reassessed. Patient is alert, oriented x 3, equal unlabored respirations, skin warm/dry/pink. Vital Signs: 13:02 BP 120 / 69; Pulse 89; Resp 17; Temp 98.4; Pulse Ox 97% on R/A; Weight 74.84 kg; Height aj 5 ft. 1 in. (154.94 cm); 13:50 BP 127 / 71; Pulse 72; Resp 19; Pulse Ox 98% on R/A; rb1 14:50 BP 116 / 65; Pulse 68; Resp 18; Pulse Ox 99% on R/A; rb1 15:50 BP 116 / 67; Pulse 68; Resp 17; Pulse Ox 99% on R/A; rb1 16:40 BP 115 / 73; Pulse 70; Resp 17; Pulse Ox 98% on R/A; Pain 3/10; rb1 13:02 Body Mass Index 31.18 (74.84 kg, 154.94 cm) aj ED Course: 12:40 Patient arrived in ED. sb2 12:41 Jerry Genao MD is Private Physician. sb2 12:57 Romeo Shelton PA is PHCP. cp 12:58 Carson Robles MD is Attending Physician. cp 12:59 Steph Hough, LEONOR is Primary Nurse. rb1 13:00 Patient has correct armband on for positive identification. Placed in gown. Bed in low rb1 position. Call light in reach. Side rails up X 1. Pulse ox on. NIBP on. 13:01 Triage completed. aj 13:02 Arm band placed on left wrist. Patient placed in an exam room. aj 13:30 Initial lab(s) drawn, by me, sent to lab. Inserted saline lock: 20 gauge in right dh3 antecubital area, using aseptic technique. Blood collected. 13:37 Urine collected: clean catch specimen, clear. dh3 13:[address] via wheelchair. 2 13:59 CT Stone Protocol In Process Unspecified. EDMS 16:57 No provider procedures requiring assistance completed. IV discontinued, intact, rb1 bleeding controlled, No redness/swelling at site. Pressure dressing applied. Administered Medications: 13:33 Drug: NS 0.9% 1000 ml Route: IV; Rate: 1 bolus; Site: right antecubital; rb1 14:42 Follow up: IV Status: Completed infusion rb1 14:10 Drug: TORadol 30 mg Route: IVP; Site: right antecubital; rb1 14:40 Follow up: Response: No adverse reaction; Pain is decreased rb1 15:25 Drug: Flexeril 10 mg Route: PO; rb1 15:50 Follow up: Response: No adverse reaction; Pain is decreased rb1 15:25 Drug: NovoLIN R 7 units {Co-Signature: ph (Lashawn Humphrey RN).} Route: Sub-Q; Site: rb1 right upper arm; 16:25 Follow up: Response: No adverse reaction; Blood sugar is lowered; 197 rb1 Point of Care Testing: Blood Glucose: 16:25 Blood Glucose: 197 mg/dL; rb1 Ranges: Intake: Outcome: 16:31 Discharge ordered by MD. cp 16:57 Discharged to home ambulatory. rb1 16:57 Condition: stable 16:57 Discharge instructions given to patient, Instructed on discharge instructions, follow up and referral plans. medication usage, Demonstrated understanding of instructions, follow-up care, medications, Prescriptions given X 2. 16:58 Patient left the ED. rb1 Signatures: Dispatcher [employer] Kiana Mayen, RN RN Romeo Sim PA PA cp Barber, Rebecca, RN RN rb1 Vera Sol 2 Catnia Zelaya 3 Emerita Almazan 2 Lashawn Humphrey RN ph
--- NOTE | 2017-08-19 16:32 | EDPHYS ---
Physician Documentation [facility] Name: Jeannie Giron Age: 57 yrs Sex: Female : 1960 Arrival Date: 08/19/2017 Time: 12:40 Bed 16 Private MD: Jerry Genao C ED Physician Carson Robles HPI: 08/19 13:15 This 57 yrs old Female presents to ER via Ambulatory with complaints of SIDE cp PAIN. 13:15 The patient presents with abdominal pain right lateral area below breast. cp 13:15 Onset: The symptoms/episode began/occurred 2 day(s) ago. The symptoms do not radiate. cp Associated signs and symptoms: Pertinent negatives: nausea and vomiting, blood in stools, chest pain, constipation, diarrhea, dysuria, fever. The symptoms are described as waxing/waning. Modifying factors: the symptoms are aggravated by palpation. Severity of pain: in the emergency department the pain is unchanged. 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 aj Historical: - Allergies: 13:02 Hydrocodone-Acetaminophen; aj 13:02 Iodinated Contrast Media - IV Dye; aj 13:02 Iodine; aj 13:02 Rocephin (rash); aj 13:02 SHELLFISH; aj 13:02 Ciprofloxacin; aj 13:02 Levaquin; aj 13:00 Codeine; rb1 - Home Meds: 13:02 dicyclomine 10 mg Oral cap 2 caps twice a day [Active]; metformin 1,000 mg Oral TG24 1 aj tab 2 times per day [Active]; pantoprazole 40 mg Oral TbEC 1 tab once daily [Active]; 13:00 esomeprazole magnesium 40 mg oral cpDR 1 cap once daily [Active]; tamsulosin 0.4 mg rb1 oral cp24 1 cap once daily [Active]; - PMHx: 13:02 Diabetes - NIDDM; Kidney stones; aj 13:00 polyps; rb1 - PSHx: 13:02 Cholecystectomy; Tonsillectomy; neck; aj 13:00 Lithotripsy; Carpal Tunnel Repair; rb1 - Immunization history:: Adult Immunizations up to date. - Social history:: Smoking status: Patient/guardian denies using tobacco. - Ebola Screening: : Patient negative for fever greater than or equal to 101.5 degrees Fahrenheit, and additional compatible Ebola Virus Disease symptoms Patient denies exposure to infectious person Patient denies travel to an Ebola-affected area in the 21 days before illness onset No symptoms or risks identified at this time. ROS: 13:20 Constitutional: Negative for body aches, chills, fever, poor PO intake. cp 13:20 Eyes: Negative for injury, pain, redness, and discharge. cp 13:20 ENT: Negative for drainage from ear(s), ear pain, sore throat, difficulty swallowing, difficulty handling secretions. 13:20 Cardiovascular: Negative for chest pain, edema, palpitations. 13:20 Respiratory: Negative for cough, shortness of breath, wheezing. 13:20 Abdomen/GI: Positive for abdominal pain, of the anterior aspect of right lateral abdomen and right upper quadrant, Negative for nausea, vomiting, and diarrhea, constipation. 13:20 Back: Negative for radiated pain. 13:20 : Negative for urinary symptoms. 13:20 Skin: Negative for cellulitis, rash. 13:20 Neuro: Negative for altered mental status, headache, weakness. 13:20 All other systems are negative. Exam: 13:25 Constitutional: The patient appears in no acute distress, alert, awake, cp non-diaphoretic, non-toxic, well developed, well nourished. 13:25 Head/Face: Normocephalic, atraumatic. cp 13:25 Eyes: Periorbital structures: appear normal, Conjunctiva: normal, no exudate, no injection, Sclera: no appreciated abnormality, Lids and lashes: appear normal, bilaterally. 13:25 ENT: External ear(s): are unremarkable, Nose: is normal, Mouth: Lips: moist, Oral mucosa: pink and intact, moist, Posterior pharynx: is normal, airway is patent, no erythema, no exudate. 13:25 Neck: ROM/movement: is normal, is supple, without pain, no range of motions limitations, no nuchal rigidity. 13:25 Chest/axilla: Inspection: normal, Palpation: is normal, no crepitus, no tenderness. 13:25 Cardiovascular: Rate: normal, Rhythm: regular, Edema: is not appreciated, JVD: is not appreciated. 13:25 Respiratory: the patient does not display signs of respiratory distress, Respirations: normal, no use of accessory muscles, no retractions, no splinting, no tachypnea, labored breathing, is not present, Breath sounds: are clear throughout, no decreased breath sounds, no stridor, no wheezing. 13:25 Abdomen/GI: Inspection: abdomen appears normal, Bowel sounds: active, all quadrants, Palpation: soft, in all quadrants, moderate abdominal tenderness, in the anterior aspect of right lateral abdomen and right upper quadrant, rebound tenderness, is not appreciated, involuntary guarding, is not appreciated. 13:25 Back: pain, is absent, ROM is normal. 13:25 Musculoskeletal/extremity: Exam is negative for calf tenderness, decreased range of motion, edema, injury. 13:25 Skin: cellulitis, is not appreciated, no rash present. 13:25 Neuro: Orientation: to person, place \T\ time. Mentation: lucid, able to follow commands, Cerebellar function: is grossly normal, Motor: moves all fours, strength is normal, Sensation: no obvious gross deficits. Vital Signs: 13:02 BP 120 / 69; Pulse 89; Resp 17; Temp 98.4; Pulse Ox 97% on R/A; Weight 74.84 kg; Height aj 5 ft. 1 in. (154.94 cm); 13:50 BP 127 / 71; Pulse 72; Resp 19; Pulse Ox 98% on R/A; rb1 14:50 BP 116 / 65; Pulse 68; Resp 18; Pulse Ox 99% on R/A; rb1 15:50 BP 116 / 67; Pulse 68; Resp 17; Pulse Ox 99% on R/A; rb1 16:40 BP 115 / 73; Pulse 70; Resp 17; Pulse Ox 98% on R/A; Pain 3/10; rb1 13:02 Body Mass Index 31.18 (74.84 kg, 154.94 cm) aj MDM: 12:58 Patient medically screened. cp 14:00 Differential diagnosis: pancreatitis, Peptic Ulcer Disease, Perf. Duodenal Ulcer, Perf. cp Gastric Ulcer, Pyelonephritis, Ureterolithiasis, urinary tract infection, rib fracture, intercostal pain, choledocholithiasis. 15:10 ED course: VSS. Discussed results of labs and CT abdomen/pelvis that returned negative cp for acute findings. Serum glucose over 300. Will give IV fluids and 7 units Novolin and recheck. 16:30 Data reviewed: vital signs, nurses notes, lab test result(s), radiologic studies, CT cp scan. 16:30 Counseling: I had a detailed discussion with the patient and/or guardian regarding: the cp historical points, exam findings, and any diagnostic results supporting the discharge/admit diagnosis, lab results, radiology results, the need for outpatient follow up, a family practitioner, to return to the emergency department if symptoms worsen or persist or if there are any questions or concerns that arise at home. Response to treatment: the patient's symptoms have mildly improved after treatment, Serum blood sugar improved, and as a result, I will discharge patient. 08/19 13:07 Order name: Urine Microscopic Only; Complete Time: 14:08 08/19 15:02 Interpretation: Reviewed. 08/19 13:12 Order name: Amylase, Serum; Complete Time: 14:08 08/19 13:12 Order name: Basic Metabolic Panel; Complete Time: 14:08 08/19 15:00 Interpretation: Normal except: GLUC 306. 08/19 13:12 Order name: CBC with Diff; Complete Time: 14:08 08/19 15:01 Interpretation: Normal except: PLT 147. 08/19 13:12 Order name: Creatinine for Radiology; Complete Time: 14:08 08/19 13:12 Order name: Hepatic Function; Complete Time: 14:08 08/19 15:01 Interpretation: Normal except: ALK 161; GLOB 3.8; A/G 0.9. 08/19 13:12 Order name: Lipase; Complete Time: 14:08 08/19 14:09 Interpretation: Abnormal: LIP 424. 08/19 13:40 Order name: CT Stone Protocol; Complete Time: 15:00 08/19 13:53 Order name: Urine Dipstick--Ancillary (enter results); Complete Time: 14:08 08/19 15:05 Interpretation: Normal except: UGLUC 3+. 08/19 13:53 Order name: Urine --Ancillary (enter results); Complete Time: 14:08 08/19 13:07 Order name: Urine Dipstick-Ancillary (obtain specimen); Complete Time: 13:38 08/19 13:07 Order name: Urine Test (obtain specimen); Complete Time: 13:38 08/19 13:12 Order name: IV Saline Lock; Complete Time: 13:38 08/19 13:12 Order name: Labs collected and sent; Complete Time: 13:38 cp 08/19 15:20 Order name: Accucheck Blood Glucose: recheck 1600; Complete Time: 16:28 cp Administered Medications: 13:33 Drug: NS 0.9% 1000 ml Route: IV; Rate: 1 bolus; Site: right antecubital; rb1 14:42 Follow up: IV Status: Completed infusion rb1 14:10 Drug: TORadol 30 mg Route: IVP; Site: right antecubital; rb1 14:40 Follow up: Response: No adverse reaction; Pain is decreased rb1 15:25 Drug: Flexeril 10 mg Route: PO; rb1 15:50 Follow up: Response: No adverse reaction; Pain is decreased rb1 15:25 Drug: NovoLIN R 7 units {Co-Signature: ph (Lashawn Humphrey RN).} Route: Sub-Q; Site: rb1 right upper arm; 16:25 Follow up: Response: No adverse reaction; Blood sugar is lowered; 197 rb1 Point of Care Testing: Blood Glucose: 16:25 Blood Glucose: 197 mg/dL; rb1 Ranges: Critical Glucose Levels:Adult <50 mg/dl or >400 mg/dl <40 mg/dl or >180 mg/dl Disposition: 08/19/17 16:31 Discharged to Home. Impression: Diabetes mellitus due to underlying condition with hyperglycemia, Unspecified abdominal pain. - Condition is Stable. - Discharge Instructions: Abdominal Pain, Adult, Diabetes Mellitus and Food. - Prescriptions for Cyclobenzaprine 10 mg Oral Tablet - take 1 tablet by ORAL route every 8 hours As needed; 20 tablet. Naprosyn 500 mg Oral Tablet - take 1 tablet by ORAL route 2 times per day take with food; 20 tablet. - Medication Reconciliation Form, Thank You Letter, Antibiotic Education, Prescription Opioid Use form. - Follow up: Private Physician; When: 2 - 3 days; Reason: Recheck today's complaints. - Problem is new. - Symptoms have improved. Addendum: 08/25/2017 07:13 Co-signature as Attending Physician, Carson Robles MD. g s Signatures: Dispatcher [employer] EDKiana Rogers RN RN aj Page, Corey, PA PA cp Barber, Rebecca, RN RN rb1 Starr, Gregory, MD MD Lashawn Humphrey RN ph Corrections: (The following items were deleted from the chart) 07/10 16:58 16:31 08/19/2017 16:31 Discharged to Home. Impression: Diabetes mellitus due to rb1 underlying condition with hyperglycemia; Unspecified abdominal pain. Condition is Stable. Forms are Medication Reconciliation Form, Thank You Letter, Antibiotic Education, Prescription Opioid Use. Follow up: Private Physician; When: 2 - 3 days; Reason: Recheck today's complaints. Problem is new. Symptoms have improved. cp
== END 2017-08-19 16:58 | disposition home or self-care (01) ==
LOC: ER 12:38
DX: E11.65 Type 2 diabetes mellitus with hyperglycemia (principal); Z87.442 Personal history of urinary calculi; Z88.1 Allergy status to other antibiotic agents; Z88.5 Allergy status to narcotic agent; Z91.013 Allergy to seafood; Z91.041 Radiographic dye allergy status
CPT/HCPCS: 36415; 74176; 76377; 80048; 80076; 81003; 81015; 81025; 82150; 82962; 83690; 85025; 96361; 96372; 96374; 99284; J7030

== ENCOUNTER 2018-04-07 10:31 | Observation (INO) | payer OTHER ==
--- OUTSIDE RECORDS SUMMARY | 2018-04-07 10:35 | XMS REPORT | CCD ---
:1960 Author Organization [facility] Care Team Providers Name Role Phone Aden Ulrich Referring Provider Allergies, Adverse Reactions, Alerts Substance Reaction Status codeine Active contrast media (iodine-based) Active shellfish Active Problem List Condition Effective Dates Status Anxiety depression Active Back pain Active Cough1 Active Diabetes mellitus Active Heartburn symptom Active Sleep apnea Active 1sinus drainage Medications Medication Instructions Start Date End Date Status [place] 7.5/325 oral 1-2 tab, PO, Q4-6H, 12/09/2012 [...] 30 day, Stop date: 01/07/13 14:02:00Same as [place] 325-7.5mg Do not exceed 4gm/day of acetaminophen. [...] 30 day, Stop date: 01/07/13 14:01:00Same as [place] 325-7.5mg Do not exceed 4gm/day of acetaminophen. [...] values reflect the clinical guidelines of the [place] [employer]. Procedures Procedures Date Related Diagnosis Ablation Cholecystectomy Colonoscopy CTR - Carpal tunnel release Operation Release of tennis elbow Release of trigger finger Rotator cuff repair
--- OUTSIDE RECORDS SUMMARY | 2018-04-07 10:35 | XMS REPORT | CCD ---
:1960 Author Organization [facility] Care Team Providers Name Role Phone Aden Ulrich Referring Provider Allergies, Adverse Reactions, Alerts Substance Reaction Status codeine Active contrast media (iodine-based) Active shellfish Active Problem List Condition Effective Dates Status Anxiety depression Active Back pain Active Cough1 Active Diabetes mellitus Active Heartburn symptom Active Sleep apnea Active 1sinus drainage Medications Medication Instructions Start Date End Date Status [place] 7.5/325 oral 1-2 tab, PO, Q4-6H, 12/09/2012 [...] 30 day, Stop date: 01/07/13 14:02:00Same as [place] 325-7.5mg Do not exceed 4gm/day of acetaminophen. [...] 30 day, Stop date: 01/07/13 14:01:00Same as [place] 325-7.5mg Do not exceed 4gm/day of acetaminophen. [...] values reflect the clinical guidelines of the [place] [employer]. Procedures Procedures Date Related Diagnosis Ablation Cholecystectomy Colonoscopy CTR - Carpal tunnel release Operation Release of tennis elbow Release of trigger finger Rotator cuff repair
--- OUTSIDE RECORDS SUMMARY | 2018-04-07 10:35 | XMS REPORT | CCD ---
:1960 [address] [facility] Care Team Providers Name Role Phone Aden Ulrich Referring Provider Allergies, Adverse Reactions, Alerts Substance Reaction Status codeine Active contrast media (iodine-based) Active shellfish Active Problem List Condition Effective Dates Status Anxiety depression Active Back pain Active Cough1 Active Diabetes mellitus Active Heartburn symptom Active Sleep apnea Active 1sinus drainage Medications Medication Instructions Start Date End Date Status [place] 7.5/325 oral 1-2 tab, PO, Q4-6H, 12/09/2012 [...] 30 day, Stop date: 01/07/13 14:02:00Same as [place] 325-7.5mg Do not exceed 4gm/day of acetaminophen. [...] 30 day, Stop date: 01/07/13 14:01:00Same as [place] 325-7.5mg Do not exceed 4gm/day of acetaminophen. [...] values reflect the clinical guidelines of the [place] [employer]. Procedures Procedures Date Related Diagnosis Ablation Cholecystectomy Colonoscopy CTR - Carpal tunnel release Operation Release of tennis elbow Release of trigger finger Rotator cuff repair
--- OUTSIDE RECORDS SUMMARY | 2018-04-07 10:35 | XMS REPORT | Continuity of Care Document ---
:1960 Author Organization Interface Problems Problem Status Onset Classification Date Comments Source Date Reported Discharge 10/31/2016 [facility] Diagnosis: 7 Localized edema BOTH LEG PAINS Active [address] 723.4/723.0/721 Active [facility] .0/76668/09798/ 3 84705/3 Anxiety Active Problem 10/31/2016 depression [facility] Back pain Active Problem 10/31/2016 [facility] Cough<sup>1</house Active Problem 10/31/2016 sinus p> drainage [facility] Diabetes Active Problem 10/31/2016 mellitus [facility] Heartburn Active Problem 10/31/2016 symptom [facility] Sleep apnea Active Problem 10/31/2016 [facility] BRACHIAL Active [facility] NEURITIS NOS CERVICAL Active [facility] SPONDYLOSIS Medications Medication Details Route Status Patient Ordering Order Source Instructions Provider Date Medrol Dosepak As directed on Active Ol[place] 12/09/ [facility] 4 mg Tablet package 2012 instructions, PO, Daily, Take with or without food, 1 Pack, Substitution AllowedTake with or without food [place] 7.5/325 1-2 tab, PO, Active Ol[place] 12/09/ [facility] oral tablet Q4-6H, PRN, 50 2012 [facility] tab, Pain, Substitution Allowed, Maintenance trazodone 150 mg, 3 tab, No Longer Bonnen 12/09/ [facility] Route: PO, Active 2012 [facility] Drug form: TAB, Bedtime, Dosing Weight 82.273, kg, Start date: 12/08/12 21:00:00, Duration: 30 day, Stop date: 01/06/13 21:00:00(Same As: Desyrel) metFORmin 500 500 mg, 1 tab, No Longer Bonnen 12/08/ [facility] mg oral tablet Route: PO, Active 2012 [facility] Drug form: TAB, BID, Dosing Weight 82.273, kg, Start date: 12/08/12 17:00:00, Duration: 30 day, Stop date: 01/07/13 9:00:00(Same as: Glucophage) Take with meal Valium 2 mg, 1 tab, No Longer Carlos Route: PO, Active 2012 [facility] Drug form: TAB, Daily, Dosing Weight 82.273, kg, PRN as needed for anxiety, Start date: 12/08/12 14:20:00, Duration: 30 day, Stop date: 01/07/13 14:19:00(Same as: Valium) morphine 2 mg, 1 mL, No Longer Carlos Sulfate Route: IV, Active 2012 [facility] Drug form: INJ, Q1H, PRN Pain Score 7-10, Start date: 12/08/12 14:03:00, Duration: 30 day, Stop date: 01/07/13 13:02:00(Same as:MORPhine Sulfate) acetaminophen- 2 tab, Route: No Longer [place] hydrocodone PO, Drug Form: Active 2012 [facility] 325 mg-7.5 mg TAB, Q4H, PRN oral tablet Pain Score 4-6, Start date: 12/08/12 14:03:00, Duration: 30 day, Stop date: 01/07/13 14:02:00Same as [place] 325-7.5mg Do not exceed 4gm/day of acetaminophen. acetaminophen- 1 tab, Route: No Longer Carlos hydrocodone PO, Drug Form: Active 2012 [facility] 325 mg-7.5 mg TAB, Q4H, PRN oral tablet Pain Score 1-3, Start date: 12/08/12 14:02:00, Duration: 30 day, Stop date: 01/07/13 14:01:00Same as [place] 325-7.5mg Do not exceed 4gm/day of acetaminophen. Ancef 1 gm, Route: Inactive Carlos IVPB, ONCE, 2012 Dosing Weight 82.273, kg, Start date: 12/08/12 6:55:00, Duration: 1 doses or times, Stop date: 12/08/12 6:55:00 Lactated 1,000 mL, Inactive Vance Ringers Rate: 25 2012 [facility] Injection IV ml/hr, Infuse 1000 mL over: 40 hr, Route: IV, Dosing Weight 82.273 kg, Total Volume: 1,000, Start date: 12/08/12 6:52:00, Duration: 30 day, Stop date: 01/07/13 6:51:00 cefazolin 1 gm, Route: Inactive [place] (SCIP) + IVPB, Q8H, 2012 [facility] Sodium Dosing Weight Chloride 0.9% 82.273, kg, IV 100 mL Start date: 12/08/12 0:00:00, Duration: 1 doses or times, Stop date: 12/08/12 0:00:00(Same As: Ancef, Kefzol) Sodium 1,000 mL, No Longer Olansen Chloride 0.9% Rate: 50 Active 2012 [facility] IV 1,000 mL ml/hr, Infuse over: 20 hr, Route: IV, Dosing Weight 82.273 kg, Total Volume: 1,000, Start date: 12/07/12 16:23:00, Duration: 30 day, Stop date: 01/06/13 16:22:00 insulin SUB-Q, QID, Active regular human Substitution 2012 recombinant Allowed 500 units/mL injectable solution Victoza 6 1.6, SUB-Q, Active mg/mL Daily, 2012 [facility] subcutaneous Substitution injection Allowed trazodone 150 150 mg, 1 tab, Active 11/26/ MH mg oral tablet PO, Bedtime, 2012 30 tab, Substitution Allowed, TAB Vicodin 5/500 2 tab, PO, No Longer oral tablet Bedtime, PRN, Active 2012 [facility] for pain, Substitution Allowed, Maintenance, TAB Valium 2 mg 2 mg, 1 tab, Active 11/26/ MH oral tablet PO, Daily, 2012 PRN, Anxiety, Substitution Allowed, TAB metFORmin 500 500 mg, 1 tab, Active 17/ MH mg oral tablet PO, BID, 2012 tab, Substitution Allowed Allergies, Adverse Reactions, Alerts Substance Category Reaction Severity Reaction Status Date Comments Source type Reported codeine drug Allergy allergy [facility] contrast drug Allergy media allergy [facility] (iodine-bas ed) shellfish food Allergy allergy [facility] Immunizations Immunization Date Given Site Status Last Updated Comments Source Results Order Name Results Value Reference Date Interpretation Comments Source Range ELECTROLYT AGAP 8.9 meq/L 10.0 - 10/28 ES 20.0 [place] ELECTROLYT eGFR 109 10/28 Result Comment: The eGFR is calculated using the CKD-EPI formula. In most young, healthy individuals the eGFR will be >90 mL/ min/1.73m2. The eGFR declines with age. An eGFR of 60-89 may be normal in [facility] mL/min/1.7 /2016 some populations, particularly the elderly, for whom the CKD-EPI formula has not been extensively validated. Use of the eGFR is not recommended in the following populations: [address] Individuals with unstable creatinine concentrations, including [...] meq/L 3.5 - 5.1 10/28 ES Lvl [place] ELECTROLYT Chloride Lvl 102 meq/L 95 - 109 10/28 [place] ELECTROLY[facility] CO2 29 meq/L 24 - 32 10/28 [place] ELECT[facility] Calcium Lvl 9.2 mg/dL 8.5 - 10.5 10/28 [place] ELECTR[facility] Glucose Lvl 217 mg/dL 70 - 99 10/28 [place] ELECTR[facility] BUN 11 mg/dL 7 - 22 10/28 [place] [facility]LECT[facility] Creatinine 0.51 mg/dL 0.50 - 10/28 ES Lvl 1.40 [place] ELECTROLYT Sodium Lvl 136 meq/L 135 - 145 10/28 [place] HEMATOLOGY MCH 31.9 pg 27.0 - 10/28 MH 31.0 [place] HEMAT[facility] Platelet 148 K/CMM 133 - 450 10/28 [place] HEMAT[facility] MPV 9.9 fL 7.4 - 10.4 10/28 [place] HEMAT[facility] MCHC 34.7 g/dL 32.0 - 10/28 MH 36.0 [place] HEMAT[facility] RDW 12.3 % 11.5 - 10/28 MH 14. [place] HEMAT[facility]Y MCV 92.0 fL 80.0 - 09/18 MH 98.0 [place] HEMAT[facility] Hgb 14.8 g/dL 12.0 - 10/28 MH 16.0 [place] [facility]AT[facility] Hct 42.6 % 36.0 - 10/28 MH 48.0 [place] HEMAT[facility] RBC X 10x6 4.63 M/CMM 4.20 - 10/28 MH 5.40 /2016 [place] [facility]EMAT[facility] WBC X 10x3 5.3 K/CMM 3.7 - 10.4 10/28 [place] [facility]EMAT[facility] Eosinophils 1.7 % 0.0 - 4.0 10/28 [place] [facility]EMAT[facility] Lymphocytes 2.1 K/CMM 1.0 - 5.5 10/28 MH # [place] HEMATOLOGY Basophils 0.7 % 0.0 - 1.0 10/28 [place] HEMATOLOGY Segs-Bands # 2.6 K/CMM 1.5 - 8.1 10/28 [facility] Lymphocytes 40.3 % 20.0 - 10/28 MH 40.0 [place] HEMATOLOGY Monocytes 8.4 % 2.0 - 12.0 10/28 [place] HEMATOLOGY Segs 48.9 % 45.0 - 10/28 MH 75.0 [facility] Monocytes # 0.4 K/CMM 0.0 - 0.8 10/28 [place] HEMATOLOGY Eosinophils 0.1 K/CMM 0.0 - 0.5 10/28 [facility] # [place] Ext Lower Ext Lower Patient Name: CELESTE PANTOJA 10/28 - [facility] Venous Venous /2016 - [place] Doppler Doppler : 1960; Age: 56 years Female Bilat US Bilat US MR: [id number] Read by: Carter Mcmahon MD Dictated Date/time: [...] thrombosis within the bilateral lower extremities. SL: [id number] BEDSIDE Glucose POC 233 mg/dL 70 - 99 12/09 [place] 1Interpretive GLUCOSE Data: [facility] TESTING Upper Reportable Limit: 200 mg/dL. BEDSIDE Gluc POC Notified 12/09 GLUCOSE Comment 1 RN/ [facility] TESTING BEDSIDE Glucose POC 153 mg/dL 70 - 99 12/09 [place] 2Interpretive GLUCOSE Data: [facility] TESTING Upper Reportable Limit: 200 mg/dL. BEDSIDE Glucose POC 227 mg/dL - 99 12/09 [place] 3Interpretive GLUCOSE Data: [facility] TESTING Upper Reportable Limit: 200 mg/dL. BEDSIDE Gluc POC Notified 12/08 GLUCOSE Comment 1 RN/ [facility] TESTING CHEMISTRY U Preg Negative Negative 12/08 Normal [facility] (12/08/2012 05:30:00) Spine Spine CERVICAL SPINE RADIOGRAPH SINGLE VIEW 12/08 - cervical 1 cervical - [facility] view view INDICATION: Cervical pain Read by: [...] 11 mg/dL 7 - 22 11/26 Normal [facility] CHEMISTRY CO2 28 meq/L 24 - 32 11/26 Normal [facility] CHEMISTRY AGAP 12.9 meq/L 10.0 - 11/26 Normal 20.0 [facility] CHEMISTRY Glucose Lvl 274 mg/dL 70 - 99 11/26 [place] 5Interpretive Data: Adult reference range values reflect the clinical guidelines of the [place] [employer]. [facility] CHEMISTRY Creatinine 0.6 mg/dL 0.5 - 1.4 11/26 Normal Lvl [facility] CHEMISTRY Calcium Lvl 9.0 mg/dL 8.5 - 10.5 11/26 Normal [facility] CHEMISTRY Sodium Lvl 142 meq/L 135 - 145 11/26 Normal [facility] CHEMISTRY Potassium 3.9 meq/L 3.5 - 5.1 11/26 Normal Lvl [facility] CHEMISTRY Chloride Lvl 105 meq/L 95 - 109 11/26 Normal [facility] CHEMISTRY eGFR 107 11/26 4Result Comment: The [...] is not recommended in the following populations: [facility] 3m2 Individuals with unstable creatinine concentrations, including [...] Source Temperature Oral (F) 98.7 F 10/28/2016 [facility] Heart Rate 71 10/28/2016 [facility] Systolic (mm Hg) 127 10/28/2016 [facility] Diastolic (mm Hg) 74 10/28/2016 [facility] Respitory Rate 18 10/28/2016 [facility] Systolic (mm Hg) 150 10/28/2016 [facility] Diastolic (mm Hg) 69 10/28/2016 [facility] Temperature Oral (F) 98.1 F 10/28/2016 [facility] Respitory Rate 20 10/28/2016 [facility] Heart Rate 69 10/28/2016 [facility] Weight 78.182 10/28/2016 [facility] Height 154.94 cm 10/28/2016 [facility] BMI Calculated 32.57 10/28/2016 [facility] Heart Rate 70 12/09/2012 [facility] Respitory Rate 16 12/09/2012 [facility] Temperature [...] 12/09/2012 [facility] Diastolic (mm Hg) 67 12/09/2012 [facility] Temperature Oral (F) 97.9 F 12/09/2012 [facility] Heart Rate 62 12/09/2012 [facility] Weight 82.273 12/08/2012 [facility] Height 154.94 cm 12/08/2012 [facility] Height 157.48 cm 11/26/2012 [facility] Weight 82.273 11/26/2012 [facility] Encounters Location Location Encounter Encounter Reason Attending ADM DC Status Source Details Type Number For Provider Date Date Visit Inpatient [id number] LETHA 12/08 12/09 Active [facility] CARLOS /2012 [facility] Emergency [id number] Abdiwab 10/28 10/28 Markie Herman /2016 [facility] Procedures Procedure Code Date Perfomer Comments Source Excision of 80.51 [facility] Intervertebral Disc 3 Fusion or Refusion of 81.62 [facility] 2-3 Vertebrae 3 Other Cervical Fusion 81.02 [facility] of the Anterior 3 Column, Anterior Technique Ablation [id number] [facility] Cholecystectomy [id number] [facility] Colonoscopy [id number] [facility] CTR - Carpal tunnel [id number] [facility] release Operation [id number] [facility] Release of tennis [id number] [facility] elbow Release of trigger [id number] [facility] finger Rotator cuff repair [id number] [facility] Ablation [id number] [facility] Cholecystectomy [id number] [facility] Colonoscopy [id number] [facility] CTR - Carpal tunnel [id number] [facility] release Operation [id number] [facility] Release of tennis [id number] [facility] elbow Release of trigger [id number] [facility] finger Rotator cuff repair [id number] [facility]
--- OUTSIDE RECORDS SUMMARY | 2018-04-07 10:36 | XMS REPORT | CCD ---
:1960 Author Organization [facility] Care Team Providers Name Role Phone Aden Ulrich Referring Provider Allergies, Adverse Reactions, Alerts Substance Reaction Status codeine Active contrast media (iodine-based) Active shellfish Active Problem List Condition Effective Dates Status Anxiety depression Active Back pain Active Cough1 Active Diabetes mellitus Active Heartburn symptom Active Sleep apnea Active 1sinus drainage Medications Medication Instructions Start Date End Date Status [place] 7.5/325 oral 1-2 tab, PO, Q4-6H, 12/09/2012 [...] 30 day, Stop date: 01/07/13 14:02:00Same as [place] 325-7.5mg Do not exceed 4gm/day of acetaminophen. [...] 30 day, Stop date: 01/07/13 14:01:00Same as [place] 325-7.5mg Do not exceed 4gm/day of acetaminophen. [...] values reflect the clinical guidelines of the [place] [employer]. Procedures Procedures Date Related Diagnosis Ablation Cholecystectomy Colonoscopy CTR - Carpal tunnel release Operation Release of tennis elbow Release of trigger finger Rotator cuff repair
--- OUTSIDE RECORDS SUMMARY | 2018-04-07 10:36 | XMS REPORT | CCD ---
:1960 Author Organization [facility] Care Team Providers Name Role Phone Aden Ulrich Referring Provider Allergies, Adverse Reactions, Alerts Substance Reaction Status codeine Active contrast media (iodine-based) Active shellfish Active Problem List Condition Effective Dates Status Anxiety depression Active Back pain Active Cough1 Active Diabetes mellitus Active Heartburn symptom Active Sleep apnea Active 1sinus drainage Medications Medication Instructions Start Date End Date Status [place] 7.5/325 oral 1-2 tab, PO, Q4-6H, 12/09/2012 [...] 30 day, Stop date: 01/07/13 14:02:00Same as [place] 325-7.5mg Do not exceed 4gm/day of acetaminophen. [...] 30 day, Stop date: 01/07/13 14:01:00Same as [place] 325-7.5mg Do not exceed 4gm/day of acetaminophen. [...] values reflect the clinical guidelines of the [place] [employer]. Procedures Procedures Date Related Diagnosis Ablation Cholecystectomy Colonoscopy CTR - Carpal tunnel release Excision of Intervertebral Disc 12/08/2012 00:00:00 Fusion or Refusion of 2-3 Vertebrae 12/08/2012 00:00:00 Operation Other Cervical Fusion of the Anterior Column, 12/08/2012 00:00:00 Anterior Technique Release of tennis elbow Release of trigger finger Rotator cuff repair
--- OUTSIDE RECORDS SUMMARY | 2018-04-07 10:36 | XMS REPORT | CCD ---
:1960 Author Organization [facility] Care Team Providers Name Role Phone Aden Ulrich Referring Provider Allergies, Adverse Reactions, Alerts Substance Reaction Status codeine Active contrast media (iodine-based) Active shellfish Active Problem List Condition Effective Dates Status Anxiety depression Active Back pain Active Cough1 Active Diabetes mellitus Active Heartburn symptom Active Sleep apnea Active 1sinus drainage Medications Medication Instructions Start Date End Date Status [place] 7.5/325 oral 1-2 tab, PO, Q4-6H, 12/09/2012 [...] 30 day, Stop date: 01/07/13 14:02:00Same as [place] 325-7.5mg Do not exceed 4gm/day of acetaminophen. [...] 30 day, Stop date: 01/07/13 14:01:00Same as [place] 325-7.5mg Do not exceed 4gm/day of acetaminophen. [...] values reflect the clinical guidelines of the [place] [employer]. Procedures Procedures Date Related Diagnosis Ablation Cholecystectomy Colonoscopy CTR - Carpal tunnel release Operation Release of tennis elbow Release of trigger finger Rotator cuff repair
[2018-04-07] MEDS ORDERED: NA CHLORIDE 0.9% 1,000 ML ONE (11:01)
[2018-04-07 11:18] LABS: Absolute Lymphocytes (CBC) 1.4 K/uL (0.7-4.9); Absolute Monocytes 0.4 K/uL (0.1-1.3); Absolute Neutrophil 2.5 K/uL (1.8-8.0); Basophils % 0.8 % (0-1.3); Eosinophils % 1.7 % (0-4.4); Hematocrit 43.3 % (36.0-45.0); Lymphocytes % 33.1 % (15.3-44.8); MPV 11.2 fL (7.6-11.3); RBC Red Blood Cell Count 4.74 M/uL (3.86-4.86)
[2018-04-07 11:27] LABS: Protime INR 1.07
--- NOTE | 2018-04-07 11:28 | RAD REPORT ---
EXAM DESCRIPTION: David Single View04/07/2018 11:10 am CLINICAL HISTORY: Chest pain COMPARISON: 2016 FINDINGS: The lungs appear clear of acute infiltrate. The heart is normal size IMPRESSION: No acute abnormalities displayed
[2018-04-07 11:38] LABS: ALT/SGPT 62 U/L (12-78); AST/SGOT 35 U/L (15-37); Albumin 4.1 g/dL (3.4-5.0); Alkaline Phosphatase 109 U/L (45-117); BUN Blood Urea Nitrogen 13 mg/dL (7-18); Bicarbonate 27 mmol/L (21-32); Bilirubin Direct 0.2 mg/dL (0-0.2); Bilirubin Total 0.6 mg/dL (0.2-1.0); Glucose Level 171 mg/dL (74-106); Lipase 248 U/L (73-393); Magnesium 1.9 mg/dL (1.8-2.4); NT PRO-BNP 20 pg/mL (<125); Potassium 3.7 mmol/L (3.5-5.1); Protein, Total 7.9 g/dL (6.4-8.2); Sodium Level 141 mmol/L (136-145); Troponin (Emerg Dept Use Only) < 0.02 ng/mL (0.0-0.045)
[2018-04-07 12:14] LABS: Urine Blood NEGATIVE (NEG); Urine Glucose 2+ (NEG); Urine Protein 1+ (NEG)
--- NOTE | 2018-04-07 12:19 | ER ---
Nurse's Notes [facility] Name: Jeannie Giron Age: 57 yrs Sex: Female : 1960 Arrival Date: 04/07/2018 Time: 10:32 Bed 19 Private MD: Jerry Genao C Diagnosis: Chest pain, unspecified;Type 2 diabetes mellitus Presentation: 04/07 10:41 Presenting complaint: Patient states: Substernal chest pain x 2-3 days, radiates to ph back, also c/o nausea and L hand pain, denies vomiting, cough, or SOB. Transition of care: patient was not received from another setting of care. Onset of symptoms was April 07, 2018. Risk Assessment: Do you want to hurt yourself or someone else? Patient reports no desire to harm self or others. Initial Sepsis Screen: Does the patient meet any 2 criteria? No. Patient's initial sepsis screen is negative. Does the patient have a suspected source of infection? No. Patient's initial sepsis screen is negative. Care prior to arrival: None. 10:41 Method Of Arrival: Ambulatory ph 10:41 Acuity: SHOSHANA 3 ph Triage Assessment: 10:52 General: Appears in no apparent distress. uncomfortable, Behavior is calm, cooperative, hj appropriate for age. Pain: Complains of pain in chest Pain radiates to back Pain. Cardiovascular: Reports chest pain, Capillary refill < 3 seconds Patient's skin is warm and dry. 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:43 LMP N/A - Post-menopause ph Historical: - Allergies: 10:43 Ciprofloxacin; ph 10:43 Codeine; ph 10:43 Hydrocodone-Acetaminophen; ph 10:43 Iodinated Contrast Media - IV Dye; ph 10:43 Iodine; ph 10:43 Levaquin; ph 10:43 Rocephin (rash); ph 10:43 SHELLFISH; ph - Home Meds: 10:56 esomeprazole magnesium 40 mg Oral cpDR 1 cap once daily [Active]; metformin 1,000 mg hj Oral TG24 1 tab 2 times per day [Active]; pantoprazole 40 mg Oral TbEC 1 tab once daily [Active]; tamsulosin 0.4 mg Oral cp24 1 cap once daily [Active]; dicyclomine 10 mg Oral cap 2 caps twice a day [Active]; - PMHx: 10:43 Diabetes - NIDDM; Kidney stones; polyps; ph - PSHx: 10:43 Cholecystectomy; Tonsillectomy; neck; Lithotripsy; Carpal Tunnel Repair; ph - Immunization history:: Adult Immunizations unknown. - Social history:: Smoking status: Patient/guardian denies using tobacco. - Ebola Screening: : No symptoms or risks identified at this time. - Family history:: not pertinent. Screenin:52 Abuse screen: Denies threats or abuse. Denies injuries from another. Nutritional hj screening: No deficits noted. Tuberculosis screening: No symptoms or risk factors identified. Fall Risk None identified. Assessment: 10:53 Pain: Pain began. hj 10:54 General: Appears in no apparent distress. uncomfortable, Behavior is calm, cooperative, hj appropriate for age. Pain: Complains of pain in chest Pain radiates to back. Neuro: Level of Consciousness is awake, alert, obeys commands, Oriented to person, place, time, situation, Appropriate for age. Cardiovascular: Reports chest pain, Capillary refill < 3 seconds Patient's skin is warm and dry. Respiratory: Airway is patent Respiratory effort is even, unlabored, Respiratory pattern is regular, symmetrical. GI: No signs and/or symptoms were reported involving the gastrointestinal system. : No signs and/or symptoms were reported regarding the genitourinary system. EENT: No signs and/or symptoms were reported regarding the EENT system. Derm: No signs and/or symptoms reported regarding the dermatologic system. Musculoskeletal: No signs and/or symptoms reported regarding the musculoskeletal system. 12:23 Reassessment: Patient and/or family updated on plan of care and expected duration. Pain hj level reassessed. Patient is alert, oriented x 3, equal unlabored respirations, skin warm/dry/pink. Patient states feeling better. for admit; . 13:27 Reassessment: Patient and/or family updated on plan of care and expected duration. Pain hj level reassessed. Patient is alert, oriented x 3, equal unlabored respirations, skin warm/dry/pink. awaiting room placement;. 14:10 Reassessment: Patient and/or family updated on plan of care and expected duration. Pain pc1 level reassessed. Patient is alert, oriented x 3, equal unlabored respirations, skin warm/dry/pink. Awaiting POC Patient states feeling better. 15:02 Reassessment: called the house sup; inquired about room placement for pt; to call back hj nurse for update;. 15:29 Reassessment: Patient and/or family updated on plan of care and expected duration. Pain hj level reassessed. Patient is alert, oriented x 3, equal unlabored respirations, skin warm/dry/pink. repeat troponin drawn by power tool repair technician;. Vital Signs: 10:43 BP 128 / 64; Pulse 75; Resp 18; Temp 97.7; Pulse Ox 100% on R/A; Weight 79.38 kg; hj Height 5 ft. 1 in. (154.94 cm); Pain 6/10; 12:09 BP 166 / 54; Pulse 68; Resp 18; Pulse Ox 100% on R/A; hj 12:44 BP 133 / 86; Pulse 71; Resp 16; hj 13:06 BP 108 / 87; Pulse 69; Resp 15; Pulse Ox 100% on R/A; pc1 13:51 BP 115 / 73; Pulse 71; Resp 18; Pulse Ox 100% on R/A; hj 14:43 BP 102 / 61; Pulse 65; Resp 17; Pulse Ox 100% on R/A; pc1 10:43 Body Mass Index 33.07 (79.38 kg, 154.94 cm) hj ED Course: 10:32 Patient arrived in ED. as 10:32 Jerry Genao MD is Private Physician. as 10:35 Yo Mejia is Primary Nurse. pc1 10:36 Artie Collins RN is Primary Nurse. hj 10:42 Triage completed. ph 10:44 Romeo Whiteside MD is Attending Physician. jarad 10:44 Arm band placed on Patient placed in an exam room, on a stretcher, on nurse monitoring, ph on pulse oximetry. 10:53 Patient has correct armband on for positive identification. Placed in gown. Bed in low hj position. Call light in reach. Side rails up X 1. Adult w/ patient. radiation monitor on. Pulse ox on. NIBP on. 10:53 Patient maintains SpO2 saturation greater than 95% on room air. hj 10:56 EKG done, by collections technician. reviewed by Romeo Whiteside MD. at1 10:56 Inserted saline lock: 20 gauge in right antecubital area, using aseptic technique. hj Blood collected. 11:10 X-ray completed. Portable x-ray completed in exam room. Patient tolerated procedure jb2 well. 11:10 Chest Single View XRAY In Process Unspecified. EDAK 12:18 Jerry Genao MD is Hospitalizing Provider. [facility] 15:42 Repeat lab(s) drawn. by me, sent to lab. [facility] 16:04 No provider procedures requiring assistance completed. Patient admitted, IV remains in hj place. intact. Administered Medications: 10:57 Drug: NS 0.9% 1000 ml Route: IV; Rate: 125 ml/hr; Site: right antecubital; 16:06 Follow up: IV Status: Infusion continued hj 12:15 Drug: Aspirin Chewable Tablet 324 mg Route: PO; hj 12:55 Follow up: Response: No adverse reaction hj 12:15 Drug: Pepcid 20 mg Route: IVP; Site: right antecubital; hj 12:55 Follow up: Response: No adverse reaction hj 12:15 Drug: Lovenox 1 mg/kg Route: Sub-Q; Site: right lower abdomen; hj 12:55 Follow up: Response: No adverse reaction 12:16 Drug: Lopressor 25 mg Route: PO; 12:54 Follow up: Response: No adverse reaction; Blood pressure is lowered Outcome: 12:19 Decision to Hospitalize by Provider. [facility] 16:05 Attestation : i agree with notes of SN Brandie. 16:05 Admitted to Tele accompanied by tech, via wheelchair, room 431, with chart, Report called to LEONOR Amado 16:05 Condition: stable 16:05 Instructed on the need for admit, Demonstrated understanding of instructions. 16:08 Patient left the ED. Signatures: Dispatcher [employer] EDMS Romeo Whiteside MD MD cha Buechter, Jesse jb2 Lien Perez Amanda, senior payroll manager EKG Tat1 Lashawn Humphrey RN RN Artie Bello RN Mahogany Agrawal [facility] Yo Mejia pc1 Corrections: (The following items were deleted from the chart) 11:52 10:43 Resp 18bpm; Temp 97.7F; 79.38 kg; Height 5 ft. 1 in.; BMI: 33.0; Pain 6/10; ph hj 12:10 10:43 BP 175 / 88; Pulse 75bpm; Resp 18bpm; Pulse Ox 100% RA; Temp 97.7F; 79.38 kg; hj Height 5 ft. 1 in.; BMI: 33.0; Pain 6/10; hj
--- NOTE | 2018-04-07 12:20 | EDPHYS ---
Physician Documentation [facility] Name: Jeannie Giron Age: 57 yrs Sex: Female : 1960 Arrival Date: 04/07/2018 Time: 10:32 Bed 19 Private MD: Jerry Genao C ED Physician Romeo Whiteside HPI: 04/07 12:15 This 57 yrs old Female presents to ER via Ambulatory with complaints of Chest jarad Pain. 12:15 The patient or guardian reports chest pain that is located primarily in the anterior jarad chest wall, bilaterally. Onset: 2 day(s) ago. The pain radiates to Associated signs and symptoms: Pertinent positives: diaphoresis, shortness of breath. The chest pain is described as causing indigestion, a pressure. Modifying factors: The symptoms are alleviated by nothing. the symptoms are aggravated by nothing. Severity of pain: At its worst the pain was mild in the emergency department the pain has resolved. 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 ph Historical: - Allergies: 10:43 Ciprofloxacin; ph 10:43 Codeine; ph 10:43 Hydrocodone-Acetaminophen; ph 10:43 Iodinated Contrast Media - IV Dye; ph 10:43 Iodine; ph 10:43 Levaquin; ph 10:43 Rocephin (rash); ph 10:43 SHELLFISH; ph - Home Meds: 10:56 esomeprazole magnesium 40 mg Oral cpDR 1 cap once daily [Active]; metformin 1,000 mg hj Oral TG24 1 tab 2 times per day [Active]; pantoprazole 40 mg Oral TbEC 1 tab once daily [Active]; tamsulosin 0.4 mg Oral cp24 1 cap once daily [Active]; dicyclomine 10 mg Oral cap 2 caps twice a day [Active]; - PMHx: 10:43 Diabetes - NIDDM; Kidney stones; polyps; ph - PSHx: 10:43 Cholecystectomy; Tonsillectomy; neck; Lithotripsy; Carpal Tunnel Repair; ph - Immunization history:: Adult Immunizations unknown. - Social history:: Smoking status: Patient/guardian denies using tobacco. - Ebola Screening: : No symptoms or risks identified at this time. - Family history:: not pertinent. ROS: 12:15 Constitutional: Negative for fever, chills, and weight loss, Eyes: Negative for injury, jarad pain, redness, and discharge, ENT: Negative for injury, pain, and discharge, Neck: Negative for injury, pain, and swelling, Respiratory: Negative for shortness of breath, cough, wheezing, and pleuritic chest pain, Abdomen/GI: Negative for abdominal pain, nausea, vomiting, diarrhea, and constipation, Back: Negative for injury and pain, : Negative for injury, bleeding, discharge, and swelling, MS/Extremity: Negative for injury and deformity, Skin: Negative for injury, rash, and discoloration, Neuro: Negative for headache, weakness, numbness, tingling, and seizure, Psych: Negative for depression, anxiety, suicide ideation, homicidal ideation, and hallucinations, Allergy/Immunology: Negative for hives, rash, and allergies, Endocrine: Negative for neck swelling, polydipsia, polyuria, polyphagia, and marked weight changes, Hematologic/Lymphatic: Negative for swollen nodes, abnormal bleeding, and unusual bruising. 12:15 Cardiovascular: Positive for chest pain, palpitations. Exam: 12:15 Constitutional: This is a well developed, well nourished patient who is awake, alert, jarad and in no acute distress. Head/Face: Normocephalic, atraumatic. Eyes: Pupils equal round and reactive to light, extra-ocular motions intact. Lids and lashes normal. Conjunctiva and sclera are non-icteric and not injected. Cornea within normal limits. Periorbital areas with no swelling, redness, or edema. ENT: Nares patent. No nasal discharge, no septal abnormalities noted. Tympanic membranes are normal and external auditory canals are clear. Oropharynx with no redness, swelling, or masses, exudates, or evidence of obstruction, uvula midline. Mucous membranes moist. Neck: Trachea midline, no thyromegaly or masses palpated, and no cervical lymphadenopathy. Supple, full range of motion without nuchal rigidity, or vertebral point tenderness. No Meningismus. Chest/axilla: Normal chest wall appearance and motion. Nontender with no deformity. No lesions are appreciated. Cardiovascular: Regular rate and rhythm with a normal S1 and S2. No gallops, murmurs, or rubs. Normal PMI, no JVD. No pulse deficits. Respiratory: Lungs have equal breath sounds bilaterally, clear to auscultation and percussion. No rales, rhonchi or wheezes noted. No increased work of breathing, no retractions or nasal flaring. Abdomen/GI: Soft, non-tender, with normal bowel sounds. No distension or tympany. No guarding or rebound. No evidence of tenderness throughout. Back: No spinal tenderness. No costovertebral tenderness. Full range of motion. Skin: Warm, dry with normal turgor. Normal color with no rashes, no lesions, and no evidence of cellulitis. MS/ Extremity: Pulses equal, no cyanosis. Neurovascular intact. Full, normal range of motion. Neuro: Awake and alert, GCS 15, oriented to person, place, time, and situation. Cranial nerves II-XII grossly intact. Motor strength 5/5 in all extremities. Sensory grossly intact. Cerebellar exam normal. Normal gait. Psych: Awake, alert, with orientation to person, place and time. Behavior, mood, and affect are within normal limits. 12:15 Musculoskeletal/extremity: ROM: full active range of motion, full passive range of motion, Circulation is intact in all extremities. Sensation intact. Compartment Syndrome exam of affected extremity: is normal. DVT Exam: No signs of deep vein thrombosis. no pain, no swelling, no tenderness, negative Homans' sign noted on exam, no appreciated bluish discoloration, no erythema, no increased warmth. Vital Signs: 10:43 BP 128 / 64; Pulse 75; Resp 18; Temp 97.7; Pulse Ox 100% on R/A; Weight 79.38 kg; hj Height 5 ft. 1 in. (154.94 cm); Pain 6/10; 12:09 BP 166 / 54; Pulse 68; Resp 18; Pulse Ox 100% on R/A; hj 12:44 BP 133 / 86; Pulse 71; Resp 16; hj 13:06 BP 108 / 87; Pulse 69; Resp 15; Pulse Ox 100% on R/A; pc1 13:51 BP 115 / 73; Pulse 71; Resp 18; Pulse Ox 100% on R/A; hj 14:43 BP 102 / 61; Pulse 65; Resp 17; Pulse Ox 100% on R/A; pc1 10:43 Body Mass Index 33.07 (79.38 kg, 154.94 cm) MDM: 10:44 Patient medically screened. [facility] 12:18 Data reviewed: vital signs, nurses notes, lab test result(s), EKG, radiologic studies, jarad plain films. 04/07 10:46 Order name: Basic Metabolic Panel; Complete Time: 12:14 [facility] 04/07 10:46 Order name: CBC with Diff; Complete Time: 12:14 [facility] 04/07 10:46 Order name: LFT's; Complete Time: 12:14 [facility] 04/07 10:46 Order name: Magnesium; Complete Time: 12:14 [facility] 04/07 10:46 Order name: NT PRO-BNP; Complete Time: 12:14 [facility] 04/07 10:46 Order name: PT-INR; Complete Time: 12:14 [facility] 04/07 10:46 Order name: Troponin (emerg Dept Use Only); Complete Time: 12:14 [facility] 04/07 10:46 Order name: Chest Single View XRAY; Complete Time: 12:14 [facility] 04/07 10:47 Order name: Lipase; Complete Time: 12:14 [facility] 04/07 10:49 Order name: Urine Culture [facility] 04/07 11:11 Order name: Urine Dipstick--Ancillary (enter results); Complete Time: 12:44 04/07 16:08 Order name: Troponin (Emerg Dept Use Only) EDPA 04/07 10:36 Order name: EKG; Complete Time: 10:36 04/07 10:46 Order name: Cardiac monitoring; Complete Time: 10:48 [facility] 04/07 10:46 Order name: EKG - Nurse/Tech; Complete Time: 10:52 [facility] 04/07 10:46 Order name: IV Saline Lock; Complete Time: 10:52 [facility] 04/07 10:46 Order name: Labs collected and sent; Complete Time: 10:52 [facility] 04/07 10:46 Order name: O2 Per Protocol; Complete Time: 10:48 [facility] 04/07 10:46 Order name: O2 Sat Monitoring; Complete Time: 10:48 [facility] 04/07 10:49 Order name: Urine Dipstick-Ancillary (obtain specimen); Complete Time: 10:57 [facility] 04/07 12:51 Order name: CONS Physician Consult EDPA Administered Medications: 10:57 Drug: NS 0.9% 1000 ml Route: IV; Rate: 125 ml/hr; Site: right antecubital; hj 16:06 Follow up: IV Status: Infusion continued hj 12:15 Drug: Aspirin Chewable Tablet 324 mg Route: PO; hj 12:55 Follow up: Response: No adverse reaction hj 12:15 Drug: Pepcid 20 mg Route: IVP; Site: right antecubital; hj 12:55 Follow up: Response: No adverse reaction hj 12:15 Drug: Lovenox 1 mg/kg Route: Sub-Q; Site: right lower abdomen; hj 12:55 Follow up: Response: No adverse reaction hj 12:16 Drug: Lopressor 25 mg Route: PO; hj 12:54 Follow up: Response: No adverse reaction; Blood pressure is lowered Disposition: 04/07/18 12:19 Hospitalization ordered by Jerry Genao for Observation. Preliminary diagnosis are Chest pain, unspecified, Type 2 diabetes mellitus. - Bed requested for Telemetry/MedSurg (observation). - Status is Observation. hj - Condition is Stable. - Problem is new. - Symptoms have improved. UTI on Admission? No Signatures: Dispatcher [employer] EDMS Gay Syed Corey, MD MD cha Hall, Patricia, RN RN Artie Collins RN RN Corrections: (The following items were deleted from the chart) 15:43 12:19 Hospitalization Ordered by A Birgit ROBISON for Observation. Preliminary diagnosis is bd Chest pain, unspecified; Type 2 diabetes mellitus. Bed requested for Telemetry/MedSurg (observation). Status is Observation. Condition is Stable. Problem is new. Symptoms have improved. UTI on Admission? No. jarad 16:08 15:43 04/07/2018 12:19 Hospitalization Ordered by A Birgit ROBISON for Observation. Preliminary diagnosis is Chest pain, unspecified; Type 2 diabetes mellitus. Bed requested for Telemetry/MedSurg (observation). Status is Observation. Condition is Stable. Problem is new. Symptoms have improved. UTI on Admission? No. bd
[2018-04-07] MEDS ORDERED: ENOXAPARIN 80 MG/0.8 ML SQ ONE (12:43)
[2018-04-07] MEDS ORDERED: ASPIRIN 81 MG CHEWABLE TABLET ONE (12:43)
[2018-04-07] MEDS ORDERED: FAMOTIDINE 20 MG/2 ML VIAL IV ONE (12:44)
[2018-04-07] MEDS ORDERED: METOPROLOL TAR 25 MG TAB ONE (12:53)
--- NOTE | 2018-04-07 14:46 | EKG ---
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
[2018-04-07] MEDS ORDERED: ACETAMINOPHEN 325 MG TABLET PO PRN (16:01)
[2018-04-07] MEDS ORDERED: MORPHINE 2 MG/ML SYR IV PRN (16:01)
[2018-04-07] MEDS ORDERED: ONDANSETRON 4 MG/2 ML VIAL IV PRN (16:01)
[2018-04-07 17:01] VITALS: BMI 33.0
[2018-04-07] MEDS ORDERED: METOPROLOL TAR 25 MG TAB PO SCH (18:00)
[2018-04-07] MEDS: FAMOTIDINE 20 MG/2 ML VIAL IV SCH (20:53)
[2018-04-07] MEDS ORDERED: ENOXAPARIN 80 MG/0.8 ML SQ SCH (21:00)
[2018-04-07] MEDS ORDERED: D50W 25 GM/50 ML SYRINGE IV PRN (21:57)
[2018-04-07] MEDS ORDERED: GLUCAGON 1 MG/VIAL IM PRN (21:57)
[2018-04-08] MEDS ORDERED: NA CHLORIDE 0.9% 250 ML IV ONE (00:13)
[2018-04-08] MEDS: NA CHLORIDE 0.9% 1,000 ML IV SCH ×2 (01:00→11:37)
--- NOTE | 2018-04-08 01:34 | HP ---
Date of Admission: 04/07/2018 Chief Complaint: Chest pain and nausea. History Of Present Illness: This is a 57-year-old female patient, who was doing fine in her usual [facility] until yesterday evening around 7 p.m. or so, started to have some chest pain in the gary ter of her chest, describing as chest tightness type of feeling associated with some nausea. She had this chest tightness and nausea feeling until she went to bed and then middle of the night, she woke up feeling like having panic attacks and subsequently came to emergency room. After she was evaluat ed in the ER, she was admitted to the hospital. She takes pantoprazole for her acid reflux problem o nce a day in the morning and says that almost on a daily basis, she still continues to have a lot of trouble with heartburn, indigestion and reports that about 3 months [address] Dr. Ward and had an endoscopy and colonoscopy done with him. She does not take any nonsteroidal anti-inflammatory medic ation or aspirin type of medications. Medications: List reviewed. Allergies: HYDROCODONE, ITCHING; IBUPROFEN, ITCHING; IODINE, THROAT CLOSING UP SENSATION; LOVASTATIN CAUSING RASH AND FLUSHING TYPE OF SENSATION; NIACIN ALSO CAUSING RASH AND FLUSHING TYPE OF SENSATION ; TIZANIDINE CAUSING RASH AND ITCHING AND PROPOXYPHENE CAUSING ITCHING AND ZALEPLON CAUSING RASH. Review of Systems: GI: As mentioned above. Cardiovascular: As mentioned above. All other systems reviewed and negative. Past Surgical History: Left hand trigger finger surgery, rotator cuff repair, cholecystectomy, D and C, and surgery on C-spine. Family History: Significant for diabetes, hypertension, COPD, and breast cancer. Social History: Negative for smoking, alcohol use. Past Medical History: Significant for mixed hyperlipidemia, type 2 diabetes mellitus, nonalcoholic f atty liver disease, gastroesophageal reflux disease, osteopenia, and insomnia. Physical Examination: Vital Signs: Last temperature 98.2, pulse 63, respiratory rate 16, blood pressure 105/62, oxygen sat uration 96%, height 5 feet and 1 inch, and weight 175 pounds. General: Awake, alert, oriented, not in distress. HEENT: Head atraumatic, normocephalic. Conjunctivae nonerythematous. Sclerae white. Mouth, no thr ush or edema noted. Ears/Nose, no mass, lesion, discharge noted. Neck: Supple. No JVD, lymph nodes, bruit, thyromegaly noted. Lungs: Bilateral good equal air entry. Clear to auscultation. No rhonchi. No rales. Heart: Normal heart sounds, no murmur or gallop. Abdomen: Soft, bowel sounds normal. No guarding, rigidity, tenderness, mass, hepatosplenomegaly, di stention, or bruit noted. Extremities: No leg edema. No calf tenderness. Skin: No rash, ulcer, cellulitis. Lymphatics: No lymph node enlargement in neck, supraclavicular, infraclavicular region. Neuro: No focal neurological deficit. Chest: Unremarkable. External Genitalia: Deferred. Rectal: Deferred. Laboratory Data: White count 4.4, hemoglobin 15, and platelets 149. INR 1.07. Sodium 141, potassiu m 3.7, chloride 104, bicarb 27, BUN 13, creatinine 0.49, and glucose 171. Liver function tests unrem arkable. Troponin less than 0.02. Lipase 248. Urinalysis; 2+ glucose, 1+ protein. Electrocardiogr am; normal sinus rhythm, no acute ST-T changes. Chest x-ray, no acute cardiopulmonary changes. Impression: 1.Chest pain. 2.Gastroesophageal reflux disease. 3.Osteopenia. 4.Mixed hyperlipidemia. 5.Diabetes mellitus. 6.Nonalcoholic fatty liver disease. Plan: Admit the patient to hospital for further evaluation and management of this problem. The [place] ent is appropriate for observation. We will keep her on telemetry. IA has been ruled out by getting serial cardiac enzymes. We will consult Cardiology. Diabetes will be managed with sliding scale in sulin. We will go ahead and order a stress test to be done for tomorrow morning. Details and plan o f treatment discussed with the patient. I have informed her that upon discharge from the hospital, s he should follow up with Dr. Ward and until she has chance to see Dr. Ward in next week to 2 week s, she should double up on her pantoprazole and instead of 1 tablet daily, she should increase the do se to 1 tablet twice a day. BELL/MODL Voice ID: [id number]
[2018-04-08 05:32] LABS: Absolute Lymphocytes (CBC) 2.5 K/uL (0.7-4.9); Absolute Monocytes 0.4 K/uL (0.1-1.3); Basophils % 0.9 % (0-1.3); Eosinophils % 2.4 % (0-4.4); Hematocrit 39.5 % (36.0-45.0); Lymphocytes % 49.2 % (15.3-44.8); MPV 11.2 fL (7.6-11.3); Monocytes % 7.3 % (3.3-12.3); RBC Red Blood Cell Count 4.25 M/uL (3.86-4.86)
[2018-04-08 05:42] LABS: BUN Blood Urea Nitrogen 10 mg/dL (7-18); Bicarbonate 29 mmol/L (21-32); Glucose Level 96 mg/dL (74-106); Potassium 3.8 mmol/L (3.5-5.1); Sodium Level 142 mmol/L (136-145)
[2018-04-08] MEDS: INSULIN -REGULAR HUMAN 50 UNIT/0.5 ML ML SQ SCH ×3 (07:30→16:08)
[2018-04-08] MEDS ORDERED: ENOXAPARIN 40 MG/0.4 ML SQ SCH (09:00)
[2018-04-08] MEDS ORDERED: ASPIRIN EC 81 MG TAB PO SCH (09:00)
[2018-04-08] MEDS: FAMOTIDINE 20 MG/2 ML VIAL IV SCH (09:18)
[2018-04-08] MEDS ORDERED: REGADENOSON 0.4 MG/5 ML SYR IV ONE (09:58)
--- NOTE | 2018-04-08 12:30 | CON ---
Date of Consultation: 04/07/2018 Reason For Consultation: Chest pain. History Of Present Illness: Ms. Giron is a 57-year-old woman admitted with history of diabetes, gastroesophageal reflux, came in with substernal chest pain going to the back. Has bee n under a lot of stress lately. Symptoms lasted for hours. Has been going on for 2 days. No nausea , vomiting, or diaphoresis. Denied PND, orthopnea, pedal edema, palpitations, or syncope. Past Medical History: Includes diabetes and gastroesophageal reflux disease. Allergies: SHE IS ALLERGIC TO CIPRO AND HYDROCODONE. Review of Systems: Negative. Social History: Negative. Family History: Negative. Medications: At home include, Jardiance, insulin, Protonix, Neurontin, and Flomax. Physical Examination: Vital signs: Stable, afebrile.. HEENT: Negative. Neck: Supple. No bruit. Chest: Clear to auscultation and percussion. Cardiac: Revealed a regular rhythm and rate. No murmurs, gallops, or rubs. Abdomen: Benign. Extremities: Revealed no clubbing, cyanosis, or edema. Diagnostic Data: All normal. Impression And Plan: Atypical chest pain in a patient with a lot of stress, diabetes, gastroesophage al reflux disease. Lexiscan has been ordered by Dr. Genao. We will see what that shows prior to sandra hein final decisions. Her symptoms sound more like reflux disease than coronary artery disease. PJ/ADAM Voice ID: [id number] Report ID: [id number]
[2018-04-08 12:32] VITALS: O2SAT 96
--- NOTE | 2018-04-08 15:52 | RAD REPORT ---
EXAM DESCRIPTION: NM - Rest Stress Cardiac Imaging - 04/08/2018 3:44 pm CLINICAL HISTORY: Chest pain. COMPARISON: None. TECHNIQUE: The patient was administered approximately 10mCi of Tc 99m Sestamibi prior to resting SPE CT imaging of the heart. The patient was then administered approximately 30 mCi of Tc 99m Sestamibi f ollowing exercise or pharmacologic stress. Multiplanar SPECT images were reviewed. FINDINGS: There is uniformity of radiotracer uptake involving the entire left ventricular myocardiu m on rest and stress images. The left ventricular ejection fraction equals 74% IMPRESSION: Negative for a myocardial perfusion defect
--- NOTE | 2018-04-08 15:57 | TREADPHA ---
DX: CHEST PAIN Date of Study: 04/08/2018 Ht: 5 1 Wt: 175 lb 0 oz Consulting Physician: ISMAEL MEDICATIONS: TYLENOL, ASPIRIN, LOVENOX, NOVOLIN-R, GLUCAGEN. HISTORY: 57 YEAR OLD FEMALE WITH COMPLAINTS OF CHEST PAIN, HISTORY: NON INSULIN DEPENDENT DIABETES MELLITUS, HYPERTENSION, PLOYS, KIDNEY STONES, NON SMOKER, OCCSIONAL DRINK. PHYSICIAL EXAMINATION: RESTING B.P.: 120/73 RESTING H.R.: 67 RESTING EKG: NORMAL. PROTOCOL: LEXISCAN EXERCISE TIME: 3:30 B.P. AT PEAK STRESS: 112/58 IMPRESSION: LEXISCAN INJECTED, FOLLOWED BY CARDIOLITE PER PROTOCOL. SEE NUCLEAR MEDICINE REPORT. NO SUPRA VENTRICULAR TACHYCARDIA, NO VENTRICULAR TACHYCARDIA, NO PREMATURE ATRIAL COMPLEXES, NO PREMATURE VENTRICULAR COMPLEXES. PATIENT REPORTED NO CHEST PAIN, OR TIGHTNESS THROUGHOUT THE PROCEDURE, OR IN RECOVERY.
[2018-04-08 17:10] VITALS: BP 111/56; TEMP 98.4
--- NOTE | 2018-04-09 19:56 | DS ---
Date of Discharge: 04/08/2018 Disposition: Discharged to go home. Physical Examination: HEENT: Unremarkable. Lungs: Clear to auscultation. Heart: Sounds normal. Abdomen: Soft. Bowel sounds normal. No guarding, rigidity, tenderness, or distention. Extremities: No leg edema. Discharge Medications And Instructions: 1.Continue prior home medication except change pantoprazole to 1 tablet by mouth 2 times a day. 2.Follow up with Dr. Ward in 1 to 2 weeks and then follow up at my office per scheduled appointmen t. Laboratory Data: Labs and investigation done during this hospitalization, white count yesterday 4.4, hemoglobin 15, platelets 149. Cardiac enzymes, troponin less than 0.02 x4. Sodium 141, potassium 3 .7, chloride 104, bicarb 27, BUN 13, creatinine 0.49, glucose 171. Liver function tests unremarkable . Chest x-ray, no acute cardiopulmonary changes. Lexiscan stress test done today showing negative f or myocardial perfusion defect. Hospital Course: A 57-year-old female patient admitted to the hospital under my service after she ca me into emergency room with complaints of chest pain and nausea. Please see dictated H and P for mor e information. The patient came into emergency room after she was evaluated in the ER, she was admit curt to the hospital. Her symptoms appeared to be atypical in nature. After she was admitted to the hospital, serial cardiac enzymes came back negative. Cardiology consultation was obtained and this m orning the patient had a stress test done today. Once the result was available, it was reviewed and the patient was discharged to go home in stable condition. I have instructed her that I suspect that her chest pain is likely due to acid reflux problem that she is having symptoms with in spite of lawrence ing her pantoprazole 40 mg daily. She takes other [id number] medication for acid reflux almost on a daily basis, and I have advised her to use pantoprazole 40 mg twice a day and try to see [place] stroenterologist Dr. Ward in next 1-2 weeks and discuss this with him. Discharge Diagnoses: 1.Chest pain. 2.Gastroesophageal reflux disease. 3.Osteopenia. 4.Mixed hyperlipidemia. 5.Diabetes mellitus. 6.Nonalcoholic fatty liver disease. BELL/MODL Voice ID: [id number] Report ID: [id number]
== END 2018-04-08 17:34 | disposition home or self-care (01) ==
LOC: ER 10:31 → ERHOLD 12:48 → 4TH 16:09
PROVIDERS: ADMIT Internal Medicine; ATTEND Internal Medicine
DX: R07.9 Chest pain, unspecified (principal); K21.9 Gastro-esophageal reflux disease without esophagitis; M85.80 Other specified disorders of bone density and structure, unspecified site; E78.2 Mixed hyperlipidemia; E11.9 Type 2 diabetes mellitus without complications; K76.0 Fatty (change of) liver, not elsewhere classified
CPT/HCPCS: 36415; 71045; 78452; 80048; 80076; 81003; 82962; 83690; 83735; 83880; 84484; 85025; 85610; 87086; 87088; 93005; 93017; 96361; 96372; 96374; 99285; A9500; G0378; J1650; J2270; J2405; J2785; J7030

== ENCOUNTER 2019-03-24 10:59 | Emergency (ER) | payer OTHER ==
[2019-03-24] MEDS ORDERED: METHYLPREDNISOLONE 125 MG INJ ONE (12:11)
[2019-03-24] MEDS ORDERED: KETOROLAC 30 MG/ML INJ ONE (12:12)
[2019-03-24] MEDS ORDERED: DIPHENHYDRAMINE 50 MG/ML VIAL ONE (12:12)
--- NOTE | 2019-03-24 12:31 | RAD REPORT ---
EXAM DESCRIPTION: CT - Head Brain Wo Cont - 03/24/2019 12:15 pm CLINICAL HISTORY: HEADACHE COMPARISON: No comparisons TECHNIQUE: Axial 5 mm thick images of the head were obtained without IV contrast. All CT scans are performed using dose optimization technique as appropriate and may include automated exposure control or mA/KV adjustment according to patient size. FINDINGS: No intracranial hemorrhage, mass, edema or shift of mid-line structures. No acute infarcti on changes seen. No abnormal extra-axial fluid collections. Ventricles are normal. Asymmetric physiol ogic calcifications are present more prominent on the left. Choroid plexus calcifications present. Mastoid air cells and visualized portions of the paranasal sinuses are clear. No acute bony findings. IMPRESSION: Negative non-contrast CT head examination for acute or significant finding.
[2019-03-24 13:00] LABS: Absolute Lymphocytes (CBC) 1.6 K/uL (0.7-4.9); Basophils % 0.6 % (0-1.3); Hematocrit 41.7 % (36.0-45.0); Lymphocytes % 32.3 % (15.3-44.8); MPV 10.7 fL (7.6-11.3); RBC Red Blood Cell Count 4.58 M/uL (3.86-4.86)
[2019-03-24 13:16] LABS: Potassium 3.9 mmol/L (3.5-5.1)
--- NOTE | 2019-03-24 14:10 | ER ---
Nurse's Notes [facility] Name: Jeannie Giron Age: 58 yrs Sex: Female : 1960 Arrival Date: 03/24/2019 Time: 11:02 Bed 20 Private MD: Jerry Genao C Diagnosis: Headache;Musculoskeletal pain Presentation: 03/24 11:04 Presenting complaint: Patient states: Severe headache and neck pain for about 6 months ca1 but has gotten severe. I have neck fusion in 2012 and I have sinus pains too. I also have crampy pain on both legs. Transition of care: patient was not received from another setting of care. Onset of symptoms was March 24, 2019. Risk Assessment: Do you want to hurt yourself or someone else? Patient reports no desire to harm self or others. Initial Sepsis Screen: Does the patient meet any 2 criteria? No. Patient's initial sepsis screen is negative. Does the patient have a suspected source of infection? No. Patient's initial sepsis screen is negative. Care prior to arrival: None. 11:04 Method Of Arrival: Ambulatory ca1 11:04 Acuity: SHOSHANA 3 ca1 Triage Assessment: 11:52 Headache History: The patient has had previous headaches and this one is similar to rb1 previous episodes. 11:52 Pain: Also complains of no other associated symptoms. rb1 Historical: - Allergies: 11:11 Ciprofloxacin; ca1 11:11 Codeine; ca1 11:11 Hydrocodone-Acetaminophen; ca1 11:11 Iodinated Contrast Media - IV Dye; ca1 11:11 Iodine; ca1 11:11 Levaquin; ca1 11:11 Rocephin (rash); ca1 11:11 SHELLFISH; ca1 - Home Meds: 11:11 metformin 1,000 mg Oral TG24 1 tab 2 times per day [Active]; pantoprazole 40 mg Oral ca1 TbEC 1 tab once daily [Active]; tamsulosin 0.4 mg Oral cp24 1 cap once daily [Active]; ibuprofen 800 mg Oral tab 1 tab as needed [Active]; Tresiba FlexTouch U-200 200 unit/mL (3 mL) subcutaneous inpn [Active]; - PMHx: 11:11 Kidney stones; polyps; Arthritis; Osteoporosis; Osteopenia; Diabetes - IDDM; ca1 - PSHx: 11:11 Cholecystectomy; Tonsillectomy; neck; Lithotripsy; Carpal Tunnel Repair; ca1 - Immunization history:: Adult Immunizations up to date, Flu vaccine is up to date. - Coronavirus screen:: The patient has NOT traveled to [place] in the past 14 days. The patient has NOT had contact with known/suspected case of Coronavirus?. - Social history:: Smoking status: Patient denies any tobacco usage or history of. - Ebola Screening: : Patient negative for fever greater than or equal to 101.5 degrees Fahrenheit, and additional compatible Ebola Virus Disease symptoms Patient denies exposure to infectious person Patient denies travel to an Ebola-affected area in the 21 days before illness onset No symptoms or risks identified at this time. Screenin:52 Abuse screen: Denies threats or abuse. Nutritional screening: No deficits noted. rb1 Tuberculosis screening: No symptoms or risk factors identified. Fall Risk None identified. Assessment: 11:52 General: Appears in no apparent distress. comfortable, Behavior is calm, cooperative. rb1 Pain: Complains of pain in neck, head Pain currently is 7 out of 10 on a pain scale. Pain began x six months. Neuro: Level of Consciousness is awake, alert, obeys commands, Oriented to person, place, time, situation. Cardiovascular: Capillary refill < 3 seconds is brisk in bilateral fingers. Respiratory: Airway is patent Respiratory effort is even, unlabored, Respiratory pattern is regular, symmetrical. GI: No signs and/or symptoms were reported involving the gastrointestinal system. : No signs and/or symptoms were reported regarding the genitourinary system. Derm: Skin is pink, warm \T\ dry. Musculoskeletal: Range of motion: intact in all extremities. 12:50 Reassessment: Patient appears in no apparent distress at this time. No changes from rb1 previously documented assessment. 13:45 Reassessment: Patient appears in no apparent distress at this time. Patient and/or rb1 family updated on plan of care and expected duration. Pain level reassessed. Patient is alert, oriented x 3, equal unlabored respirations, skin warm/dry/pink. 14:25 Reassessment: Patient appears in no apparent distress at this time. No changes from rb1 previously documented assessment. Vital Signs: 11:11 BP 136 / 57; Pulse 73; Resp 16 S; Temp 97.7(O); Pulse Ox 97% on R/A; Weight 75.75 kg ca1 (R); Height 5 ft. 1 in. (154.94 cm) (R); Pain 8/10; 13:00 BP 104 / 58; Pulse 66; Resp 17; Pulse Ox 97% on R/A; rb1 14:00 BP 107 / 59; Pulse 68; Resp 16; Pulse Ox 99% on R/A; rb1 11:11 Body Mass Index 31.55 (75.75 kg, 154.94 cm) ca1 13:00 Pt. reports she normally has low BP rb1 ED Course: 11:02 Patient arrived in ED. as 11:02 Jerry Genao MD is Private Physician. as 11:07 Triage completed. ca1 11:11 Arm band placed on right wrist. EKG completed in triage. Results shown to MD. EKG ca1 completed in triage. Results shown to MD. 11:44 Sonu Bee MD is Attending Physician. kdr 11:52 Patient has correct armband on for positive identification. Bed in low position. Call rb1 light in reach. Side rails up X 1. Pulse ox on. NIBP on. Warm blanket given. 12:05 Steph Hough, RN is Primary Nurse. rb1 12:34 Inserted saline lock: 22 gauge in right antecubital area, using aseptic technique. rb1 Blood collected. 14:08 Jerry Genao MD is Referral Physician. kdr 14:31 No provider procedures requiring assistance completed. IV discontinued, intact, rb1 bleeding controlled, No redness/swelling at site. Pressure dressing applied. Administered Medications: 12:35 Drug: SOLU-Medrol 125 mg Route: IVP; Site: right antecubital; rb1 12:50 Follow up: Response: No adverse reaction rb1 12:35 Drug: TORadol - Ketorolac 15 mg Route: IVP; Site: right antecubital; rb1 12:50 Follow up: Response: No adverse reaction rb1 12:35 Drug: Benadryl 12.5 mg Route: IVP; Site: right antecubital; rb1 12:50 Follow up: Response: No adverse reaction rb1 Outcome: 14:09 Discharge ordered by MD. kdr 14:31 Patient left the ED. rb1 14:31 Discharged to home ambulatory. rb1 14:31 Condition: stable 14:31 Discharge instructions given to patient, Instructed on discharge instructions, follow up and referral plans. medication usage, Demonstrated understanding of instructions, follow-up care, medications, Prescriptions given X 3. Signatures: Sonu Bee MD MD kdr Lien Perez Rebecca, RN RN rb1 Gwen Winchester RN RN ca1
--- NOTE | 2019-03-24 14:10 | EDPHYS ---
Physician Documentation [facility] Name: Jeannie Giron Age: 58 yrs Sex: Female : 1960 Arrival Date: 03/24/2019 Time: 11:02 Bed 20 Private MD: Jerry Genao C ED Physician Sonu Bee HPI: 03/24 17:06 This 58 yrs old Female presents to ER via Ambulatory with complaints of kdr Headache, Neck Pain, >24Hrs Old. 17:06 The patient complains of pain to the forehead. The patient describes the headache as kdr aching, constant, a pressure, throbbing, unrelenting, waxing and waning. Onset: The symptoms/episode began/occurred gradually, 6 month(s) ago. Associated signs and symptoms: Pertinent positives: nausea, Pertinent negatives: there are no associated signs or symptoms. altered mental status, neck stiffness, paresthesias, Photophobia vision changes, vision loss, vomiting, weakness, vertigo. Severity of symptoms: At its worst the pain was moderate, in the emergency department the pain is unchanged. Headache History: The patient has had previous headaches and this one is similar to previous episodes. The symptoms are alleviated by nothing. the symptoms are aggravated by lights, movement, noise. The patient has experienced similar episodes in the past, multiple times. The patient has not recently seen a physician. Historical: - Allergies: 11:11 Ciprofloxacin; ca1 11:11 Codeine; ca1 11:11 Hydrocodone-Acetaminophen; ca1 11:11 Iodinated Contrast Media - IV Dye; ca1 11:11 Iodine; ca1 11:11 Levaquin; ca1 11:11 Rocephin (rash); ca1 11:11 SHELLFISH; ca1 - Home Meds: 11:11 metformin 1,000 mg Oral TG24 1 tab 2 times per day [Active]; pantoprazole 40 mg Oral ca1 TbEC 1 tab once daily [Active]; tamsulosin 0.4 mg Oral cp24 1 cap once daily [Active]; ibuprofen 800 mg Oral tab 1 tab as needed [Active]; Tresiba FlexTouch U-200 200 unit/mL (3 mL) subcutaneous inpn [Active]; - PMHx: 11:11 Kidney stones; polyps; Arthritis; Osteoporosis; Osteopenia; Diabetes - IDDM; ca1 - PSHx: 11:11 Cholecystectomy; Tonsillectomy; neck; Lithotripsy; Carpal Tunnel Repair; ca1 - Immunization history:: Adult Immunizations up to date, Flu vaccine is up to date. - Coronavirus screen:: The patient has NOT traveled to [place] in the past 14 days. The patient has NOT had contact with known/suspected case of Coronavirus?. - Social history:: Smoking status: Patient denies any tobacco usage or history of. - Ebola Screening: : Patient negative for fever greater than or equal to 101.5 degrees Fahrenheit, and additional compatible Ebola Virus Disease symptoms Patient denies exposure to infectious person Patient denies travel to an Ebola-affected area in the 21 days before illness onset No symptoms or risks identified at this time. ROS: 17:06 Constitutional: Negative for fever, chills, and weight loss, Eyes: Negative for injury, kdr pain, redness, and discharge, Neck: Negative for injury, pain, and swelling, Cardiovascular: Negative for chest pain, palpitations, and edema, Respiratory: Negative for shortness of breath, cough, wheezing, and pleuritic chest pain, Abdomen/GI: Negative for abdominal pain, nausea, vomiting, diarrhea, and constipation, Back: Negative for injury and pain, : Negative for injury, bleeding, discharge, and swelling, MS/Extremity: Negative for injury and deformity, Skin: Negative for injury, rash, and discoloration, Psych: Negative for depression, anxiety, suicide ideation, homicidal ideation, and hallucinations, Allergy/Immunology: Negative for hives, rash, and allergies, Endocrine: Negative for neck swelling, polydipsia, polyuria, polyphagia, and marked weight changes, Hematologic/Lymphatic: Negative for swollen nodes, abnormal bleeding, and unusual bruising. 17:06 Neuro: Positive for headache, tinnitus, Negative for altered mental status, dizziness, gait disturbance, hearing loss, tremor, visual changes, weakness. Exam: 17:06 Constitutional: This is a well developed, well nourished patient who is awake, alert, kdr and in no acute distress. Head/Face: Normocephalic, atraumatic. Eyes: Pupils equal round and reactive to light, extra-ocular motions intact. Lids and lashes normal. Conjunctiva and sclera are non-icteric and not injected. Cornea within normal limits. Periorbital areas with no swelling, redness, or edema. ENT: Nares patent. No nasal discharge, no septal abnormalities noted. Tympanic membranes are normal and external auditory canals are clear. Oropharynx with no redness, swelling, or masses, exudates, or evidence of obstruction, uvula midline. Mucous membranes moist. Neck: Trachea midline, no thyromegaly or masses palpated, and no cervical lymphadenopathy. Supple, full range of motion without nuchal rigidity, or vertebral point tenderness. No Meningismus. Chest/axilla: Normal chest wall appearance and motion. Nontender with no deformity. No lesions are appreciated. Cardiovascular: Regular rate and rhythm with a normal S1 and S2. No gallops, murmurs, or rubs. Normal PMI, no JVD. No pulse deficits. Respiratory: Lungs have equal breath sounds bilaterally, clear to auscultation and percussion. No rales, rhonchi or wheezes noted. No increased work of breathing, no retractions or nasal flaring. Abdomen/GI: Soft, non-tender, with normal bowel sounds. No distension or tympany. No guarding or rebound. No evidence of tenderness throughout. Back: No spinal tenderness. No costovertebral tenderness. Full range of motion. Skin: Warm, dry with normal turgor. Normal color with no rashes, no lesions, and no evidence of cellulitis. MS/ Extremity: Pulses equal, no cyanosis. Neurovascular intact. Full, normal range of motion. Neuro: Awake and alert, GCS 15, oriented to person, place, time, and situation. Cranial nerves II-XII grossly intact. Motor strength 5/5 in all extremities. Sensory grossly intact. Cerebellar exam normal. Normal gait. Psych: Awake, alert, with orientation to person, place and time. Behavior, mood, and affect are within normal limits. Vital Signs: 11:11 BP 136 / 57; Pulse 73; Resp 16 S; Temp 97.7(O); Pulse Ox 97% on R/A; Weight 75.75 kg ca1 (R); Height 5 ft. 1 in. (154.94 cm) (R); Pain 8/10; 13:00 BP 104 / 58; Pulse 66; Resp 17; Pulse Ox 97% on R/A; rb1 14:00 BP 107 / 59; Pulse 68; Resp 16; Pulse Ox 99% on R/A; rb1 11:11 Body Mass Index 31.55 (75.75 kg, 154.94 cm) ca1 13:00 Pt. reports she normally has low BP rb1 MDM: 14:09 Patient medically screened. kdr 17:06 Data reviewed: vital signs, nurses notes, lab test result(s), radiologic studies. kdr Counseling: I had a detailed discussion with the patient and/or guardian regarding: the historical points, exam findings, and any diagnostic results supporting the discharge/admit diagnosis, lab results, radiology results, the need for outpatient follow up. Special discussion: I discussed with the patient/guardian in detail that at this point there is no indication for admission to the hospital. It is understood, however, that if the symptoms persist or worsen the patient needs to return immediately for re-evaluation. 03/24 12:03 Order name: CBC with Diff kdr 03/24 12:03 Order name: Chem 7 kdr 03/24 12:03 Order name: Flu kdr 03/24 12:45 Order name: Glucose, Ancillary Testing; Complete Time: 13:49 EDMS 03/24 13:01 Order name: CBC with Automated Diff; Complete Time: 13:49 EDMS 03/24 13:16 Order name: Influenza Screen (A ; Complete Time: 13:49 EDMS 03/24 12:04 Order name: CT Head Brain wo Cont kdr 03/24 12:35 Order name: CT; Complete Time: 13:49 EDMS 03/24 13:17 Order name: Basic Metabolic Panel; Complete Time: 13:49 EDMS Administered Medications: 12:35 Drug: SOLU-Medrol 125 mg Route: IVP; Site: right antecubital; rb1 12:50 Follow up: Response: No adverse reaction rb1 12:35 Drug: TORadol - Ketorolac 15 mg Route: IVP; Site: right antecubital; rb1 12:50 Follow up: Response: No adverse reaction rb1 12:35 Drug: Benadryl 12.5 mg Route: IVP; Site: right antecubital; rb1 12:50 Follow up: Response: No adverse reaction rb1 Disposition: 03/24/19 14:09 Discharged to Home. Impression: Headache, Musculoskeletal pain. - Condition is Stable. - Discharge Instructions: General Headache Without Cause, Musculoskeletal Pain. - Prescriptions for Ibuprofen 600 mg Oral Tablet - take 1 tablet by ORAL route every 6 hours As needed take with food; 15 tablet. Robaxin 500 mg Oral Tablet - take 2 tablets by ORAL route every 6 hours As needed; 24 tablet. Prednisone 20 mg Oral Tablet - take 1 tablet by ORAL route once daily for 3 days; 3 tablet. - Medication Reconciliation Form, Thank You Letter, Prescription Opioid Use form. - Follow up: Jerry Genao MD; When: 2 - 3 days; Reason: If symptoms return, Further diagnostic work-up, Recheck today's complaints, Continuance of care, Re-evaluation by your physician. - Problem is new. - Symptoms have improved. Signatures: Dispatcher [employer] EDMA Sonu Bee MD MD kdr Steph Hough, RN RN rb1 Gwen Winchester RN RN ca1 Corrections: (The following items were deleted from the chart) 14:31 14:09 03/24/2019 14:09 Discharged to Home. Impression: Headache; Musculoskeletal pain. rb1 Condition is Stable. Forms are Medication Reconciliation Form, Thank You Letter, Antibiotic Education, Prescription Opioid Use. Follow up: Jerry Genao; When: 2 - 3 days; Reason: If symptoms return, Further diagnostic work-up, Recheck today's complaints, Continuance of care, Re-evaluation by your physician. Problem is new. Symptoms have improved. kdr
[2019-03-25 20:28] VITALS: TEMP 97.7; O2SAT 97
[2019-03-25 20:29] VITALS: BP 104/58
== END 2019-03-24 14:31 | disposition home or self-care (01) ==
LOC: ER 10:59
DX: M79.18 Myalgia, other site (principal); E11.9 Type 2 diabetes mellitus without complications; Z79.4 Long term (current) use of insulin; Z88.1 Allergy status to other antibiotic agents; Z88.3 Allergy status to other anti-infective agents; Z88.5 Allergy status to narcotic agent; Z88.8 Allergy status to other drugs, medicaments and biological substances; Z91.013 Allergy to seafood; Z91.041 Radiographic dye allergy status; Z91.048 Other nonmedicinal substance allergy status
CPT/HCPCS: 85025; 80048; 36415; 82947; 87804 ×2; 70450; 96375; 96374; 99284; J1200; J2930

== ENCOUNTER 2020-02-06 10:22 | Observation (INO) | payer OTHER ==
--- OUTSIDE RECORDS SUMMARY | 2020-02-06 10:24 | XMS REPORT | Continuity of Care Document ---
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 10-23 Family with type with Type 00:00: Prac tic 2 diabetes 2 Diabetes 00 e mellitus Mellitus Pure Pure Problem Active [facility] hyperchole Hyperchole 10-23 Fa breonna sterolemia sterolemia 00:00: Pr actic 00 e Obesity Obesity Problem Active [place] 10-23 Family 00:00: Practic 00 e Steatosis Steatosis Problem Active Katie colton of liver of Liver 10-23 Family 00:00: Practic 00 e Allergies, Adverse Reactions, Alerts Allergy Allergy Status Severity Reaction(s) Onset Inactive Treating Comm ents Source Name Type Date Date Clinician Cipro Allergy Active Hives [place] to Family substanc Practic e e Hydrocod Allergy Active [place] one to Family substanc Practic e e Iodine Allergy Active [place] to Family substanc Practic e e ROCEPHIN Allergy Active Hives [place] to Family substanc Practic e e SHELLFIS Allergy Active Rash [place] H to Family DERIVED substanc Practic e e Social History Smoking Status Start Date Stop Date Source Never Smoker [facility] Family P ractice Medications Ordered Filled Start Stop Current Ordering Indication Dosage Frequency Signature Comments Components Source Medication Medication Date Date Medication? Clinician (SIG) Name Name Calcium 500 Calcium 500 No Calcium [place] 1 tablet 1 tablet 500 1 Family once weekly once weekly tablet Practic with meal with meal once e weekly with meal clotrimazol clotrimazol No 1g BID clotrimazo [place] e-betametha e-betametha le-betamet Family sone 1-0.5 sone 1-0.5 hasone P ractic % topical % topical 1-0.5 % e cream Apply cream Apply topical 1 g twice a 1 g twice a cream day by day by Apply 1 g topical topical twice a route as route as day by directed. directed. topical route as directed. FreeStyle FreeStyle No FreeStyle [place] Marisa 14 Marisa 14 Marisa 14 Fam carla Day Sensor Day Sensor Day Sensor Practic e gabapentin gabapentin No 1capsul BID gabapentin [facility] 100 mg 100 mg e(s) 100 mg Family capsule capsule capsule Practi c Take 1 Take 1 Take 1 e capsule capsule capsule twice a day twice a day twice a by oral by oral day by route as route as oral route directed. directed. as directed. Jardiance Jardiance No 1 Q1D Jardiance [place] 25 mg 25 mg 25 mg Family tablet Take tablet Take tablet Practic 1 tablet 1 tablet Take 1 e every day every day tablet by oral by oral every day route in route in by oral the morning the morning route in for 30 for 30 the days. days. morning for 30 days. metformin metformin No 1 Q1D metformin [facility] ER 500 mg ER 500 mg ER 500 mg Family 24 hr 24 hr 24 hr Practic tablet,exte tablet,exte tablet,ext e nded nded ended release release release Take 1 Take 1 Take 1 tablet tablet tablet every day every day every day by oral by oral by oral route with route with route with meals for meals for meals for 30 days. 30 days. 30 days. OneTouch OneTouch No OneTouch Katie colton Verio test Verio test Verio test Family strips USe strips USe strips USe Practic twice daily twice daily twice e daily pantoprazol pantoprazol No 1 Q1D pantoprazo [place] e 40 mg e 40 mg le 40 mg Famil y tablet,julio tablet,julio tablet,del Practic yed release yed release ayed e Take 1 Take 1 release tablet tablet Take 1 every day every day tablet by oral by oral every day route in route in by oral the the route in morning. morning. the morning. Pen Needle Pen Needle No 1needle Q1D Pen Needle [facility] 29 gauge x 29 gauge x (s) 29 gauge x Family 1/2" Take 1 1/2" Take 1 1/2" Take Practic needle needle 1 needle e every day every day every day by miscell. by miscell. by route as route as miscell. directed. directed. route as directed. tamsulosin tamsulosin No 1capsul Q1D tamsulosin [facility] 0.4 mg 0.4 mg e(s) 0.4 mg Family capsule capsule capsule Practi c Take 1 Take 1 Take 1 e capsule capsule capsule every day every day every day by oral by oral by oral route in route in route in the the the morning. morning. morning. tizanidine tizanidine No 1 tizanidine [facility] 4 mg tablet 4 mg tablet 4 mg F amily Take 1 Take 1 tablet Practic tablet as tablet as Take 1 e needed by needed by tablet as oral route oral route needed by as needed. as needed. oral route as needed. Tresiba Tresiba No Tresiba [place] e FlexTouch FlexTouch FlexTouch Family U-200 U-200 U-200 Practic insulin 200 insulin 200 insulin e unit/mL (3 unit/mL (3 200 mL) mL) unit/mL (3 subcutaneou subcutaneou mL) s pen Give s pen Give subcutaneo 40 units in 40 units in us pen AM and AM and Give 40 increase as increase as units in directed: directed: AM and TDD 50 TDD 50 increase as directed: TDD 50 Immunizations Ordered Immunization Filled Immunization Date Status Commen ts Source Name Name influenza, influenza, 2019-10-12 [facility] injectable, injectable, 00:00:00 Practice quadrivalent quadrivalent tetanus toxoid, tetanus toxoid, 2018-02-10 [facility] Family unspecified unspecified 00:00:00 Practice formulation formulation Vital Signs Vital Name Observation Time Observation Value Comments Source BP Diastolic 2019-11-04 00:00:00 68 mm[Hg] [facility] Height 2019-11-04 00:00:00 61 [in_i] [facility] BMI (Body Mass 2019-11-04 00:00:00 32.5 kg/m2 [facility] Index) Practice BP Systolic 2019-11-04 00:00:00 118 mm[Hg] [facility] Body Weight 2019-11-04 00:00:00 171.8 [lb_av] [facility] Procedures Procedure Date / Time Performing Clinician Source Performed Cholecystectomy (Gall [facility] Fa breonna Bladder Removal) Practice Colonoscopy [facility] Orthopedic Surgery [facility] Famil y Practice Plan of Care Planned Activity Planned Date Details Comments Source Diagnostic Test 2019-11-04 glucose, [facility] Fami ly Pending 00:00:00 fingerstick, blood Practice [code = glucose, fingerstick, blood] Encounters Start End Encounter Admission Attending Care Care Encounter Source Date/Time Date/Time Type Type Clinicians Facility Department ID 2019-11-04 2019-11-04 Jose [facility] [place] - [id number] V illage 00:00:00 00:00:00 Jay Bruno - Justin loera MD: [id number]_[email or web address] e [facility], [facility] [address], [place] [address] , Ph. Results This patient has no known results.
[2020-02-06 12:38] LABS: Absolute Lymphocytes (CBC) 1.6 K/uL (0.7-4.9); Basophils % 0.6 % (0-1.3); Hematocrit 41.8 % (36.0-45.0); Lymphocytes % 30.4 % (15.3-44.8); MPV 9.9 fL (7.6-11.3); RBC Red Blood Cell Count 4.65 M/uL (3.86-4.86)
[2020-02-06 12:41] LABS: Protime INR 1.08
[2020-02-06 13:01] LABS: ALT/SGPT 39 U/L (12-78); AST/SGOT 20 U/L (15-37); Albumin 3.9 g/dL (3.4-5.0); Alkaline Phosphatase 118 U/L (45-117); BUN Blood Urea Nitrogen 13 mg/dL (7-18); Bicarbonate 29 mmol/L (21-32); Bilirubin Direct 0.1 mg/dL (0-0.2); Bilirubin Total 0.5 mg/dL (0.2-1.0); Glucose Level 200 mg/dL (74-106); Magnesium 2.1 mg/dL (1.8-2.4); NT PRO-BNP 53 pg/mL (<125); Potassium 3.7 mmol/L (3.5-5.1); Protein, Total 7.9 g/dL (6.4-8.2); Sodium Level 139 mmol/L (136-145); Troponin (Emerg Dept Use Only) < 0.02 ng/mL (0.0-0.045)
--- NOTE | 2020-02-06 13:22 | RAD REPORT ---
EXAM DESCRIPTION: RAD - Chest Single View - 02/06/2020 12:47 pm CLINICAL HISTORY: CHEST PAIN COMPARISON: June 2018 TECHNIQUE: AP portable chest image was obtained 02/06/2020 12:47 pm . FINDINGS: No focal mass or consolidation. Interstitial pattern is accentuated by slightly shallow in spiratory effort. No dense mass or consolidation. No vascular engorgement or cardiomegaly. Trachea is midline. No measurable pleural effusion and no pneumothorax. No acute bony abnormality seen. No acut e aortic findings suspected. IMPRESSION: No acute cardiopulmonary process. No significant change from comparison study.
--- NOTE | 2020-02-06 13:39 | EDPHYS ---
Physician Documentation [facility] Name: Jeannie Giron Age: 59 yrs Sex: Female : 1960 Arrival Date: 02/06/2020 Time: 10:23 Bed 17 Private MD: ED Physician Alvino Abbott HPI: 02/05 12:06 This 59 yrs old Female presents to ER via Ambulatory with complaints of Chest jmm Pain. 12:06 The patient or guardian reports chest pain that is located primarily in the substernal jmm area. Onset: gradually, 1 week(s) ago. The pain does not radiate. Associated signs and symptoms: Pertinent negatives: abdominal pain, dizziness, shortness of breath. The chest pain is described as tightness. Duration: The patient or guardian reports a single episode. Modifying factors: The symptoms are alleviated by nothing. the symptoms are aggravated by nothing. This is a 59 year old female with a history of DM, htn, hlp that presents to the ED with complains of 1 week of chest tightness worsening over the past 24 hours. Denies fever, cough. . Historical: - Allergies: 11:04 Ciprofloxacin; iw 11:04 Codeine; iw 11:04 Hydrocodone-Acetaminophen; iw 11:04 Iodinated Contrast Media - IV Dye; iw 11:04 Iodine; iw 11:04 Levaquin; iw 11:04 Rocephin (rash); iw 11:04 SHELLFISH; iw 11:04 Demerol; iw - Home Meds: 11:04 ibuprofen 800 mg Oral tab 1 tab as needed [Active]; metformin 1,000 mg Oral TG24 1 tab iw 2 times per day [Active]; pantoprazole 40 mg Oral TbEC 1 tab once daily [Active]; tamsulosin 0.4 mg Oral cp24 1 cap once daily [Active]; Tresiba FlexTouch U-200 200 unit/mL (3 mL) subcutaneous inpn [Active]; 11:06 lisinopril 5 mg oral tab once daily [Active]; loratadine 10 mg oral tab 1 tab once iw daily [Active]; Jardiance 25 mg oral tab 1 tab once daily [Active]; - PMHx: 11:04 Arthritis; Diabetes - IDDM; Diabetes - NIDDM; Kidney stones; Osteopenia; Osteoporosis; iw polyps; ADD/ADHD; - PSHx: 11:04 Cholecystectomy; Lithotripsy; Tonsillectomy; neck; Carpal Tunnel Repair; iw - Immunization history:: Adult Immunizations up to date. - Social history:: Smoking status: Patient denies any tobacco usage or history of. ROS: 12:06 Constitutional: Negative for fever, chills, and weight loss. [facility] 12:06 Respiratory: Negative for shortness of breath, cough, wheezing, and pleuritic chest pain, Abdomen/GI: Negative for abdominal pain, nausea, vomiting, diarrhea, and constipation, Neuro: Negative for headache, weakness, numbness, tingling, and seizure. 12:06 Cardiovascular: Positive for chest pain. 12:06 All other systems are negative. Exam: 12:06 Constitutional: This is a well developed, well nourished patient who is awake, alert, jmm and in no acute distress. Head/Face: atraumatic. Eyes: EOMI, no conjunctival erythema appreciated ENT: Moist Mucus Membranes Neck: Trachea midline, Supple Chest/axilla: Normal chest wall appearance and motion. Cardiovascular: Regular rate and rhythm. No edema appreciated Respiratory: Normal respirations, no respiratory distress appreciated Abdomen/GI: Non distended, soft Back: Normal ROM Skin: General appearance color normal MS/ Extremity: Moves all extremities, no obvious deformities appreciated, no edema noted to the lower extremities Neuro: Awake and alert, normal gait Psych: Behavior is normal, Mood is normal, Patient is cooperative and pleasant Vital Signs: 11:01 BP 123 / 61; Pulse 74; Resp 16; Temp 97.8; Pulse Ox 98% on R/A; Weight 77.11 kg; Height iw 5 ft. 1 in. (154.94 cm); Pain 5/10; 12:10 BP 118 / 50; Pulse 67; Resp 16; Pulse Ox 97% ; bp 13:00 BP 126 / 77; Pulse 61; Resp 17; Pulse Ox 97% ; bp 14:00 BP 111 / 56; Pulse 65; Resp 17; Pulse Ox 97% ; bp 15:00 BP 106 / 68; Pulse 66; Resp 17; Pulse Ox 96% ; bp 11:01 Body Mass Index 32.12 (77.11 kg, 154.94 cm) iw MDM: 12:26 Patient medically screened. [facility] 13:37 Data reviewed: vital signs, nurses notes. Counseling: I had a detailed discussion with wes the patient and/or guardian regarding: the historical points, exam findings, and any diagnostic results supporting the discharge/admit diagnosis, lab results, radiology results, the need for further work-up and treatment in the hospital. ED course: I discussed the patient with Dr. Genao whom accepted the patient. . 02/05 12:06 Order name: Basic Metabolic Panel; Complete Time: 13:03 [facility] 02/05 12:06 Order name: CBC with Diff; Complete Time: 12:54 [facility] 02/05 12:06 Order name: LFT's; Complete Time: 13:03 [facility] 02/05 12:06 Order name: Magnesium; Complete Time: 13:03 [facility] 02/05 12:06 Order name: NT PRO-BNP; Complete Time: 13:03 [facility] 02/05 12:06 Order name: PT-INR; Complete Time: 13:03 [facility] 02/05 12:06 Order name: Troponin (emerg Dept Use Only); Complete Time: 13:03 [facility] 02/05 15:06 Order name: Basic Metabolic Panel [facility] 02/05 15:06 Order name: Basic Metabolic Panel [facility] 02/05 15:06 Order name: CBC with Automated Diff [facility] 02/05 15:06 Order name: CBC with Automated Diff [facility] 02/05 15:06 Order name: Troponin I [facility] 02/05 15:06 Order name: Troponin I; Complete Time: 18:00 [facility] 02/05 15:06 Order name: Troponin I [facility] 02/05 12:06 Order name: XRAY Chest (1 view); Complete Time: 13:32 [facility] 02/05 12:06 Order name: EKG; Complete Time: 12:07 [facility] 02/05 12:06 Order name: Cardiac monitoring; Complete Time: 12:38 [facility] 02/05 12:06 Order name: EKG - Nurse/Tech; Complete Time: 12:38 [facility] 02/05 12:06 Order name: IV Saline Lock; Complete Time: 12:39 [facility] 02/05 12:06 Order name: Labs collected and sent; Complete Time: 12:39 [facility] 02/05 12:06 Order name: O2 Per Protocol; Complete Time: 12:39 [facility] 02/05 15:06 Order name: CONS Physician Consult [facility] 02/05 15:06 Order name: Consistent Carb (ADA) 2000 Sathish EDMS 02/05 15:06 Order name: EKG Electrocardiogram [facility] 02/05 15:06 Order name: EKG Electrocardiogram [facility] 02/05 15:06 Order name: EKG Electrocardiogram [facility] 02/05 15:06 Order name: EKG Electrocardiogram [facility] 02/05 15:06 Order name: Rest Stress Cardiac Imaging [facility] 02/05 20:04 Order name: Glucose, Ancillary Testing [facility] 02/05 12:06 Order name: O2 Sat Monitoring; Complete Time: 12:38 [facility] Administered Medications: 13:45 Drug: Aspirin Chewable Tablet 324 mg Route: PO; bp 15:15 Follow up: Response: No adverse reaction bp Disposition: 02/06 08:49 Co-signature as Attending Physician, Alvino Abbott MD. rn Disposition: 02/06/20 13:38 Hospitalization ordered by Jerry Genao for Observation. Preliminary diagnosis is Chest pain, unspecified. - Bed requested for Intensive Care Unit. - Status is Observation. dm5 - Condition is Stable. - Problem is new. - Symptoms are unchanged. Signatures: Dispatcher [employer] [facility] Ana Negro, RN RN dm5 Fantasma Gonzalez PA PA [facility] Farzaneh Alfaro, RN Alvino Davis MD MD rn Peltier, Brian, RN RN bp Corrections: (The following items were deleted from the chart) 02/05 15:54 13:38 Hospitalization Ordered by A Birgit ROBISON for Observation. Preliminary diagnosis is bp Chest pain, unspecified. Bed requested for Telemetry/MedSurg (observation). Status is Observation. Condition is Stable. Problem is new. Symptoms are unchanged. [facility] 20:45 15:54 02/06/2020 13:38 Hospitalization Ordered by A Birgit ROBISON for Observation. dm5 Preliminary diagnosis is Chest pain, unspecified. Bed requested for [facility] ER HOLD. Status is Observation. Condition is Stable. Problem is new. Symptoms are unchanged. bp 20:45 20:45 02/06/2020 13:38 Hospitalization Ordered by A Birgit ROBISON for Observation. dm5 Preliminary diagnosis is Chest pain, unspecified. Bed requested for Intensive Care Unit. Status is Observation. Condition is Stable. Problem is new. Symptoms are unchanged. dm5
--- NOTE | 2020-02-06 13:39 | ER ---
Nurse's Notes [facility] Name: Jeannie Giron Age: 59 yrs Sex: Female : 1960 Arrival Date: 02/06/2020 Time: 10:23 Bed 17 Private MD: Diagnosis: Chest pain, unspecified Presentation: 02/05 11:01 Chief complaint: Patient states: is having heavy pain throughout her chest and into her iw back and into both her shoulders, like in her muscles,tested negative for COVID 2 weeks ago, no cough or fever , the pain started last week, was intermittent and now this week has been pretty constant. Coronavirus screen: At this time, the client does not indicate any symptoms associated with coronavirus-19. Ebola Screen: Patient negative for fever greater than or equal to 101.5 degrees Fahrenheit, and additional compatible Ebola Virus Disease symptoms Patient denies exposure to infectious person. Patient denies travel to an Ebola-affected area in the 21 days before illness onset. No symptoms or risks identified at this time. Initial Sepsis Screen: Does the patient meet any 2 criteria? No. Patient's initial sepsis screen is negative. Does the patient have a suspected source of infection? No. Patient's initial sepsis screen is negative. Risk Assessment: Do you want to hurt yourself or someone else? Patient reports no desire to harm self or others. Onset of symptoms was January 23, 2020. 11:01 Method Of Arrival: Ambulatory iw 11:01 Acuity: SHOSHANA 3 iw Triage Assessment: 12:05 General: Appears in no apparent distress. uncomfortable, Behavior is cooperative, bp appropriate for age, anxious. Pain: Complains of pain in chest. EENT: No deficits noted. Neuro: No deficits noted. Cardiovascular: Rhythm is sinus rhythm. Respiratory: No deficits noted. GI: No signs and/or symptoms were reported involving the gastrointestinal system. : No signs and/or symptoms were reported regarding the genitourinary system. Derm: No deficits noted. Musculoskeletal: No deficits noted. Historical: - Allergies: 11:04 Ciprofloxacin; iw 11:04 Codeine; iw 11:04 Hydrocodone-Acetaminophen; iw 11:04 Iodinated Contrast Media - IV Dye; iw 11:04 Iodine; iw 11:04 Levaquin; iw 11:04 Rocephin (rash); iw 11:04 SHELLFISH; iw 11:04 Demerol; iw - Home Meds: 11:04 ibuprofen 800 mg Oral tab 1 tab as needed [Active]; metformin 1,000 mg Oral TG24 1 tab iw 2 times per day [Active]; pantoprazole 40 mg Oral TbEC 1 tab once daily [Active]; tamsulosin 0.4 mg Oral cp24 1 cap once daily [Active]; Tresiba FlexTouch U-200 200 unit/mL (3 mL) subcutaneous inpn [Active]; 11:06 lisinopril 5 mg oral tab once daily [Active]; loratadine 10 mg oral tab 1 tab once iw daily [Active]; Jardiance 25 mg oral tab 1 tab once daily [Active]; - PMHx: 11:04 Arthritis; Diabetes - IDDM; Diabetes - NIDDM; Kidney stones; Osteopenia; Osteoporosis; iw polyps; ADD/ADHD; - PSHx: 11:04 Cholecystectomy; Lithotripsy; Tonsillectomy; neck; Carpal Tunnel Repair; iw - Immunization history:: Adult Immunizations up to date. - Social history:: Smoking status: Patient denies any tobacco usage or history of. Screenin:41 Abuse screen: Denies threats or abuse. Denies injuries from another. Nutritional bp screening: No deficits noted. Tuberculosis screening: No symptoms or risk factors identified. Fall Risk None identified. Assessment: 12:05 General: SEE TRIAGE NOTE. bp 13:00 Reassessment: Patient appears in no apparent distress at this time. No changes from bp previously documented assessment. Patient and/or family updated on plan of care and expected duration. Pain level reassessed. Patient is alert, oriented x 3, equal unlabored respirations, skin warm/dry/pink. Cardiovascular: Rhythm is sinus rhythm. 14:00 Reassessment: Patient appears in no apparent distress at this time. Patient and/or bp family updated on plan of care and expected duration. Pain level reassessed. Patient is alert, oriented x 3, equal unlabored respirations, skin warm/dry/pink. ADMIT INITIATED. 15:00 Reassessment: Patient appears in no apparent distress at this time. Patient and/or bp family updated on plan of care and expected duration. Pain level reassessed. ADMIT IN PROCESS. Patient states symptoms have improved. Vital Signs: 11:01 BP 123 / 61; Pulse 74; Resp 16; Temp 97.8; Pulse Ox 98% on R/A; Weight 77.11 kg; Height iw 5 ft. 1 in. (154.94 cm); Pain 5/10; 12:10 BP 118 / 50; Pulse 67; Resp 16; Pulse Ox 97% ; bp 13:00 BP 126 / 77; Pulse 61; Resp 17; Pulse Ox 97% ; bp 14:00 BP 111 / 56; Pulse 65; Resp 17; Pulse Ox 97% ; bp 15:00 BP 106 / 68; Pulse 66; Resp 17; Pulse Ox 96% ; bp 11:01 Body Mass Index 32.12 (77.11 kg, 154.94 cm) ED Course: 10:23 Patient arrived in ED. as 11:03 Triage completed. iw 11:05 Arm band placed on. iw 12:00 Inserted saline lock: 20 gauge in right antecubital area, using aseptic technique. bp Blood collected. 12:04 Yovana Houston RN is Primary Nurse. zb 12:04 Primary Nurse role handed off by Yovana Houston RN bp 12:04 Alex Segundo, LEONOR is Primary Nurse. bp 12:05 Fantasma Gonzalez PA is PHCP. [facility] 12:05 Alvino Abbott MD is Attending Physician. m 12:10 Patient has correct armband on for positive identification. Bed in low position. Call bp light in reach. Side rails up X2. steam blocker on. Pulse ox on. NIBP on. 12:48 XRAY Chest (1 view) In Process Unspecified. EDMS 13:38 Jerry Genao MD is Hospitalizing Provider. [facility] 16:26 Troponin I Sent. [facility] Administered Medications: 13:45 Drug: Aspirin Chewable Tablet 324 mg Route: PO; bp 15:15 Follow up: Response: No adverse reaction bp Outcome: 13:38 Decision to Hospitalize by Provider. jmm 20:45 Patient left the ED. dm5 Signatures: Dispatcher [employer] EDMS Ana Negro RN LEONOR [facility] Fantasma Gonzalez PA PA jmm Martinez, Amelia as Williams, Irene, RN RN Alex Segundo RN RN Antonio Keenan [facility] Yovana Houston RN RN zb
[2020-02-06] MEDS ORDERED: ASPIRIN 81 MG CHEWABLE TABLET ONE (14:42)
[2020-02-06] MEDS ORDERED: REGADENOSON 0.4 MG/5 ML SYR IV ONE (15:01)
[2020-02-06] MEDS ORDERED: ONDANSETRON 4 MG/2 ML VIAL IV PRN (15:01)
[2020-02-06] MEDS ORDERED: ACETAMINOPHEN 500 MG TAB PO PRN (15:01)
[2020-02-06 16:01] VITALS: BMI 32.1
[2020-02-06] MEDS ORDERED: LORAZEPAM 0.5 MG TABLET PO PRN (17:38)
[2020-02-06] MEDS ORDERED: D50W 25 GM/50 ML SYRINGE IV PRN (17:38)
[2020-02-06] MEDS ORDERED: GLUCAGON 1 MG/VIAL IM PRN (17:38)
[2020-02-06] MEDS ORDERED: NITROGLYCERIN 1 GM PKT TD SCH (18:00)
[2020-02-06] MEDS ORDERED: NITROGLYCERIN 1 GM PKT TD ONE (18:25)
--- NOTE | 2020-02-06 20:05 | HP ---
Date of Admission: 02/06/2020 Chief Complaint: Chest pain. History Of Present Illness: A 59-year-old pleasant female patient, who has been having almost 1-week history of chest pain. The patient described her chest pain as intermittent in nature, located in the upper to mid chest area and described as more like tightness type of feeling. No aggravating or relieving factor. She describes that this pain does radiate from her anterior chest to her midback area. No associated shortness of breath or nausea. After she came into emergency room, she was evaluated and admitted to the hospital. Allergies: TO CODEINE, HYDROCODONE CAUSING ITCHING, IBUPROFEN CAUSING ITCHING, IODINE CAUSING THROAT CLOSING TYPE OF FEELING, LOVASTATIN CAUSING RASH, NIACIN CAUSING FLUSHING. Medications: Fosamax 35 mg once a week, Caltrate plus D 1 tablet by mouth 2 times a day, Jardiance 25 mg p.o. daily, vitamin D3 of 50,000 units, Tresiba, lisinopril 5 mg daily, lorazepam 0.5 mg daily at bedtime as needed for anxiety, metformin 500 mg, methocarbamol 500 mg at bedtime, pantoprazole 40 mg daily, rosuvastatin 5 mg at bedtime, tamsulosin 0.4 mg daily, trazodone 50 mg at bedtime. Review of Systems: Cardiovascular: As mentioned above. All other systems reviewed and negative. Past Medical History: Significant for type 2 diabetes mellitus with diabetic neuropathy, hypertension, mixed hyperlipidemia, gastroesophageal reflux disease, non alcoholic fatty liver disease, thrombocytopenia, anxiety, depression, osteopenia, vitamin D deficiency. Past Surgical History: Cholecystectomy, D and C, cervical spine surgery, shoulder surgery, carpal tunnel release surgery. Family History: Father has COPD and hypertension. Mother had breast cancer. Social History: Negative for smoking and alcohol use. Physical Examination: Initial vital signs; height 5 feet 1 inch, weight 170 pounds. When the patient first came into emergency room, blood pressure was 123/61, pulse 74, respiratory rate 16, temperature 97.8, pulse ox 98%. General: Awake, alert, oriented, not in distress. HEENT: Head atraumatic, normocephalic. Conjunctivae nonerythematous. Sclerae white. Mouth, no thrush or edema noted. Ears/Nose, no mass, lesion, discharge noted. Neck: Supple. No JVD, lymph nodes, bruit, thyromegaly noted. Lungs: Bilateral good equal air entry. Clear to auscultation. No rhonchi. No rales. Heart: Normal heart sounds, no murmur or gallop. Abdomen: Soft, bowel sounds normal. No guarding, rigidity, tenderness, mass, hepatosplenomegaly, distention, or bruit noted. Extremities: No leg edema. No calf tenderness. Skin: No rash, ulcer, cellulitis. Lymphatics: No lymph node enlargement in neck, supraclavicular, infraclavicular region. Neuro: No focal neurological deficit. Chest: Unremarkable. External Genitalia: Deferred. Rectal: Deferred. Laboratory Data: Chest x-ray, no acute cardiopulmonary changes noted. White count 5.1, hemoglobin 14.1, platelets 151. INR 1.08. Sodium 139, potassium 3.7, chloride 104, bicarb 29, BUN 13, creatinine 0.63, glucose 200. Liver function tests unremarkable. Troponin less than 0.02. EKG, no acute ST-T changes. This morning, her CBC shows white count 5.5, hemoglobin 12.9, platelets 145. Sodium 142, potassium 3.6, chloride 107, bicarb 30, BUN 13, creatinine 0.58, glucose 101. Cardiac enzymes negative x3. Impression: 1. Chest pain. 2. Type 2 diabetes mellitus with diabetic neuropathy. 3. Hypertension. 4. Mixed hyperlipidemia. 5. Gastroesophageal reflux disease. 6. Nonalcoholic fatty liver disease. 7. Thrombocytopenia. 8. Anxiety. 9. Depression. 10. Osteopenia. 11. Vitamin D deficiency. Plan: Admit the patient to hospital for further evaluation and management of this problem. The patient is appropriate for observation and overnight her condition has remained stable, except this morning her systolic blood pressure was around 86 and this is due to nitroglycerin paste that was started yesterday when she came into the hospital. So, we will discontinue nitroglycerin paste. I have advised nursing staff to give her 250 cc of normal saline IV fluid bolus, recheck her blood pressure and if her systolic blood pressure remains less than 100, then give second dose of IV fluid bolus. NV has been ruled out and we will go ahead and get a stress test done on her today. Once the stress test comes back negative, then our plan is to go ahead and discharge her to go home. She is not taking anything for gastroesophageal reflux disease, in the past she was taking pantoprazole, but she reports that she is not taking any such medication. So upon discharge, we will advise her to resume pantoprazole. Depending on the stress test, we will see if we can possibly discharge her to go home today. BELL/ADAM Voice ID: [id number] JERALD
[2020-02-06] MEDS ORDERED: TRAZODONE 50 MG TABLET PO SCH (21:00)
[2020-02-06] MEDS: INSULIN -REGULAR HUMAN 50 UNIT/0.5 ML ML SQ SCH (21:00)
[2020-02-06] MEDS ORDERED: ENOXAPARIN 40 MG/0.4 ML SQ SCH (21:00)
[2020-02-06] MEDS ORDERED: ENOXAPARIN 40 MG/0.4 ML SQ ONE (21:43)
[2020-02-06] MEDS ORDERED: MORPHINE 2 MG/ML SYR ONE (21:44)
[2020-02-06] MEDS: MORPHINE 2 MG/ML SYR IV PRN (21:49)
[2020-02-06] MEDS ORDERED: TRAZODONE 50 MG TABLET ONE (22:21)
[2020-02-07 05:24] LABS: Absolute Lymphocytes (CBC) 2.4 K/uL (0.7-4.9); Basophils % 0.8 % (0-1.3); Hematocrit 38.2 % (36.0-45.0); Lymphocytes % 42.9 % (15.3-44.8); MPV 10.5 fL (7.6-11.3); RBC Red Blood Cell Count 4.22 M/uL (3.86-4.86)
[2020-02-07 05:36] LABS: BUN Blood Urea Nitrogen 13 mg/dL (7-18); Bicarbonate 30 mmol/L (21-32); Glucose Level 101 mg/dL (74-106); Potassium 3.6 mmol/L (3.5-5.1); Sodium Level 142 mmol/L (136-145)
[2020-02-07] MEDS ORDERED: PANTOPRAZOLE 40MG TABLET PO ONE (06:01)
[2020-02-07] MEDS ORDERED: NA CHLORIDE 0.9% 250 ML IV ONE (06:27)
[2020-02-07] MEDS ORDERED: PANTOPRAZOLE 40MG TABLET PO SCH (06:30)
[2020-02-07] MEDS: INSULIN -REGULAR HUMAN 50 UNIT/0.5 ML ML SQ SCH (07:30)
--- NOTE | 2020-02-07 07:51 | HP ---
Date of Admission: 02/06/2020 BELL/MODL Voice ID: [id number] MTDD
[2020-02-07] MEDS ORDERED: METFORMIN ER 500 MG TAB PO SCH (08:00)
[2020-02-07 08:06] VITALS: BP 103/46; TEMP 98.3
[2020-02-07] MEDS ORDERED: REGADENOSON 0.4 MG/5 ML SYR IV ONE (08:34)
[2020-02-07] MEDS ORDERED: ASPIRIN EC 81 MG TAB PO SCH (09:00)
[2020-02-07] MEDS ORDERED: lisinopriL 5 MG TAB PO SCH (09:00)
[2020-02-07] MEDS ORDERED: METFORMIN HCL 500 MG TAB ONE (09:34)
[2020-02-07] MEDS ORDERED: ASPIRIN EC 81 MG TAB PO ONE (09:34)
[2020-02-07] MEDS ORDERED: lisinopriL 5 MG TAB ONE (09:35)
[2020-02-07] MEDS ORDERED: MORPHINE 2 MG/ML SYR ONE (09:35)
--- NOTE | 2020-02-07 09:50 | RAD REPORT ---
EXAM DESCRIPTION: NM - Rest Stress Cardiac Imaging - 02/07/2020 9:43 am CLINICAL HISTORY: chest pain Chest pain. COMPARISON: Rest Stress Cardiac Imaging dated 04/08/2018 TECHNIQUE: The patient was administered approximately 10mCi of Tc 99m Sestamibi prior to resting SPE CT imaging of the heart. The patient was then administered approximately 30 mCi of Tc 99m Sestamibi f ollowing exercise or pharmacologic stress. Multiplanar SPECT images were reviewed. FINDINGS: No stress induced ischemic defect is seen to suggest stress induced ischemia. No fixed def ect is seen to suggest hibernating myocardium or scarred myocardium. The end diastolic volume is 78 ml, the end systolic volume is 22 ml, and the ejection fraction is 71 %. IMPRESSION: No stress induced ischemia.
[2020-02-07] MEDS: MORPHINE 2 MG/ML SYR IV PRN (09:59)
[2020-02-07 10:06] VITALS: O2SAT 97
--- NOTE | 2020-02-08 07:36 | TREADPHA ---
DX: CHEST PAIN Date of Study: 02/07/20 Ht: 5' 1 " Wt: 170 lb 0 oz Consulting Physician: MISHEL MEDICATIONS: ASPIRIN, LOVENOX, NOVOLIN-R, PRINIVIL HISTORY: INSULIN DEPENDENT DIABETES MELLITUS PHYSICIAL EXAMINATION: RESTING B.P.: RESTING H.R.: RESTING EKG: WITHIN NORMAL LIMITS PROTOCOL: PHARMACOLOGIC EXERCISE TIME: 3:30 B.P. AT PEAK STRESS: IMPRESSION: NO ELECTOCARDIOGRAM CHANGES WITH STRESS.
--- NOTE | 2020-02-09 08:29 | DS ---
Date of Discharge: 02/07/2020 Disposition: Discharged to go home. Physical Examination: HEENT: Unremarkable. Lungs: Clear to auscultation. Cardiovascular: Heart sounds normal. Abdomen: Soft. Bowel sounds normal. No guarding, rigidity, tenderness, or distention. Extremities: No leg edema. Discharge Medications And Instructions: 1. Continue all prior home medication. 2. Take pantoprazole 40 mg p.o. daily as prescribed and prescription was sent to her pharmacy. 3. Follow up at my office per scheduled appointment. Hospital Course: A 59-year-old female patient admitted to the hospital with complaints of chest pain. Please see dictated H and P for more information. Patient came into emergency room with 1-week history of intermittent chest pain, located in the upper center chest, radiating to her back. After she came into ER, she was evaluated and admitted to the hospital. Her WV was ruled out by getting serial cardiac enzymes. EKG had not shown any acute ST-T changes. Overall, her condition improved. We did have to give her IV morphine overnight to help control her pain. When I saw her this morning, she was asymptomatic. She had her Lexiscan stress test done, which came back negative for stress- induced ischemia. Upon further questioning, patient reported that she had stopped taking her proton pump inhibitor therapy and I advised her to restart that medication as her chest pain could be very well atypical in nature due to gastroesophageal reflux disease. Final Diagnoses: 1. Chest pain. 2. Type 2 diabetes mellitus with diabetic neuropathy. 3. Hypertension. 4. Mixed hyperlipidemia. 5. Gastroesophageal reflux disease. 6. Nonalcoholic fatty liver disease. 7. Thrombocytopenia. 8. Anxiety. 9. Depression. 10. Osteopenia. 11. Vitamin D deficiency. BELL/MODL Voice ID: [id number] Report ID: [id number] JERALD
== END 2020-02-07 11:35 | disposition home or self-care (01) ==
LOC: ER 10:22 → ERHOLD 15:00
PROVIDERS: ADMIT Internal Medicine; ATTEND Internal Medicine
DX: R07.9 Chest pain, unspecified (principal); K21.9 Gastro-esophageal reflux disease without esophagitis; E11.40 Type 2 diabetes mellitus with diabetic neuropathy, unspecified; E78.2 Mixed hyperlipidemia; I10 Essential (primary) hypertension; D69.6 Thrombocytopenia, unspecified; F41.9 Anxiety disorder, unspecified; F32.9 Major depressive disorder, single episode, unspecified; M85.80 Other specified disorders of bone density and structure, unspecified site; E55.9 Vitamin D deficiency, unspecified; K76.0 Fatty (change of) liver, not elsewhere classified; Z79.4 Long term (current) use of insulin
CPT/HCPCS: 93005; 93017; 85025 ×2; 80048 ×2; 36415; 83735; 85610; 82947 ×3; 80076; 84484 ×3; 83880; 71045; 78452; 99284; J1650; J2270 ×2; J2785; J7050; A9500

== ENCOUNTER 2020-06-22 07:19 | Day surgery (SDC) | payer OTHER ==
[2020-06-20 12:43] LABS: Absolute Lymphocytes (CBC) 1.6 K/uL (0.7-4.9); Basophils % 0.8 % (0-1.3); Hematocrit 41.8 % (36.0-45.0); Lymphocytes % 37.4 % (15.3-44.8); MPV 10.3 fL (7.6-11.3); RBC Red Blood Cell Count 4.57 M/uL (3.86-4.86)
[2020-06-20 12:52] LABS: Protime INR 1.02
[2020-06-20 12:57] LABS: BUN Blood Urea Nitrogen 14 mg/dL (7-18); Bicarbonate 29 mmol/L (21-32); Glucose Level 266 mg/dL (74-106); Sodium Level 137 mmol/L (136-145)
--- NOTE | 2020-06-20 17:40 | EKG ---
Test Date: 2020-06-20 Test Time: 11:18:39 Records Management Associate: ROMY MEASUREMENT RESULTS: Intervals: Rate: 58 NM: 136 QRSD: 86 QT: 418 QTc: 410 [place]: P: 60 NM: 136 QRS: 64 T: 59 INTERPRETIVE STATEMENTS: Sinus bradycardia Otherwise normal ECG Compared to ECG 02/06/2020 11:16:13 Sinus rhythm no longer present Electronically Signed On 06-20-20 17:39:55 CDT by Sundeep Rosales
[2020-06-22] MEDS ORDERED: NA CHLORIDE 0.9% 500 ML ONE (08:02)
[2020-06-22 08:11] VITALS: TEMP 96.9
[2020-06-22] MEDS ORDERED: HEPA 1000U/500MLS 1,000 UNIT/500 ML BAG IV ONE (08:30)
[2020-06-22] MEDS ORDERED: FENTANYL CITR 100 MCG/2 ML ONE (08:31)
[2020-06-22] MEDS ORDERED: MIDAZOLAM HCL 2 MG/2 ML INJ ONE ×2 (08:31→08:58)
[2020-06-22] MEDS ORDERED: NA CHLORIDE 0.9% 0 ML ONE (08:31)
[2020-06-22] MEDS ORDERED: ATROPINE SULF 1 MG/10 ML SYR IV ONE (08:31)
[2020-06-22] MEDS ORDERED: METHYLPREDNISOLONE 125 MG INJ ONE (08:49)
--- NOTE | 2020-06-22 09:33 | OP ---
Date of Procedure: 06/22/2020 Surgeon: Sundeep Rosales MD Licensed Land Surveyor: Yair Matthew. Reason For Catheterization: Unstable angina. Procedure In Detail: Ms. Giron is a 60-year-old. Has hypertension, diabetes, dyslipidemia, chest pain consistent with coronary artery disease, brought to the laborer/key man today 06/22/2020, prepped and draped in the routine sterile fashion. Given Versed and fentanyl for sedation. She had allergy to i odine. She had 125 mg Solu-Medrol IV. She had a prednisone p.o. before the procedure. A 6-Lithuanian s hong introduced in the right common femoral artery successfully using the Seldinger technique and 10 mL of Xylocaine. A JL4 catheter was used to cannulate the left main. She was found to have a paul l left main, normal circumflex. She had a 50% mid LAD after the second diagonal. A JR4 catheter was used to cannulate the right main. She was found to have a 40% ostial right coronary artery. She wa s right dominant. There were no complications. Blood Loss: 5 mL. Postoperative Diagnosis: Moderate coronary artery disease. Plan: Plan is for medical therapy. I will increase her Crestor from 5 to 40 mg daily. Consider low -dose beta blockers. Anesthesia: Total conscious sedation was 45 minutes. PJ/ADAM Voice ID: [id number] Report ID: [id number]
[2020-06-22 10:30] VITALS: BP 126/61; O2SAT 96
== END 2020-06-22 11:10 | disposition home or self-care (01) ==
LOC: CCL 07:19
DX: I25.110 Atherosclerotic heart disease of native coronary artery with unstable angina pectoris (principal); I10 Essential (primary) hypertension; E11.9 Type 2 diabetes mellitus without complications; E78.2 Mixed hyperlipidemia; G62.9 Polyneuropathy, unspecified; K21.9 Gastro-esophageal reflux disease without esophagitis; M81.0 Age-related osteoporosis without current pathological fracture; Z20.822 Contact with and (suspected) exposure to COVID-19; Z88.1 Allergy status to other antibiotic agents; Z88.3 Allergy status to other anti-infective agents; Z88.6 Allergy status to analgesic agent; Z91.041 Radiographic dye allergy status; Z82.49 Family history of ischemic heart disease and other diseases of the circulatory system
CPT/HCPCS: 93005; 85025; 80048; 36415; 85610; 82947; 85730; 93454; U0003; C1893; C1760; J2250 ×2; J3010; J7040; J1644; J2930; J0583

== ENCOUNTER 2020-07-26 08:35 | Emergency (ER) | payer OTHER ==
--- OUTSIDE RECORDS SUMMARY | 2020-07-26 08:37 | XMS REPORT | Continuity of Care Document ---
:1960 Author Organization [facility] t Address [address] [place] [address] [address]. [address] [place] [address] Care Team Providers Name Role Phone Unavailable Unavailable Unavailable Problems Condition Condition Condition Status Onset Resolution Last Treating Co mments Source Name Details Category Date Date Treatment Clinician Date Disorder Disorder Problem Active [facility] 10-23 Family with type with Type 00:00: Prac tic 2 diabetes 2 Diabetes 00 e mellitus Mellitus Pure Pure Problem Active [facility] hyperchole Hyperchole 10-23 breonna sterolemia sterolemia 00:00: Pr actic 00 [...] e gabapentin gabapentin No 1capsul BID gabapentin [facility] 100 mg 100 mg e(s) [...] days. metformin metformin No 1 Q1D metformin [facility] ER 500 mg ER 500 [...] Pen Needle No 1needle Q1D Pen Needle [facility] 29 gauge x 29 gauge x (s) 29 gauge x Family 1/2" Take 1 1/2" Take 1 1/2" Take Practic needle needle 1 needle e every day every day every day by miscell. by miscell. by route as route as miscell. directed. directed. route as directed. tamsulosin tamsulosin No 1capsul Q1D tamsulosin [facility] 0.4 mg 0.4 mg e(s) 0.4 mg Family capsule capsule capsule Practi c Take 1 Take 1 Take 1 e capsule capsule capsule every day every day every day by oral by oral by oral route in route in route in the the the morning. morning. morning. tizanidine tizanidine No 1 tizanidine [facility] 4 mg tablet 4 mg [...] ts Source Name Name influenza, influenza, 2019-10-12 [facility] injectable, injectable, 00:00:00 Practice quadrivalent quadrivalent tetanus toxoid, tetanus toxoid, 2018-02-10 [facility] Family unspecified unspecified 00:00:00 Practice formulation formulation Vital Signs Vital Name Observation Time Observation Value Comments Source BP Diastolic 2019-11-04 00:00:00 68 mm[Hg] [facility] Height 2019-11-04 00:00:00 61 [in_i] [facility] BMI (Body Mass 2019-11-04 00:00:00 32.5 kg/m2 [facility] Index) Practice BP Systolic 2019-11-04 00:00:00 118 mm[Hg] [facility] Body Weight 2019-11-04 00:00:00 171.8 [lb_av] [facility] Procedures Procedure Date / Time Performing Clinician Source Performed Cholecystectomy (Gall [facility] Fa breonna Bladder Removal) Practice Colonoscopy [facility] Orthopedic Surgery [facility] Famil y Practice Plan of Care Planned Activity Planned Date Details Comments Source Diagnostic Test 2019-11-04 glucose, [facility] Fami ly Pending 00:00:00 fingerstick, blood Practice [code = glucose, fingerstick, blood] Encounters Start End Encounter Admission Attending Care Care Encounter Source Date/Time Date/Time Type Type Clinicians Facility Department ID 2019-11-04 2019-11-04 Jose [facility] [place] - [id number] [facility] 00:00:00 00:00:00 Jay Bruno - Justin loera MD: [id number] [id number] e [facility], [address] [id number] , Ph. Results This patient has no known results.
[2020-07-26] MEDS ORDERED: LIDOCAINE 1% W/EPI 1:100,000 MDV 20 ML VIAL ONE (09:21)
[2020-07-26] MEDS ORDERED: IBUPROFEN 200 MG TAB PO ONE (09:21)
--- NOTE | 2020-07-26 09:22 | RAD REPORT ---
EXAM DESCRIPTION: CT - Head Brain Wo Cont - 07/26/2020 9:11 am CLINICAL HISTORY: Headache COMPARISON: None TECHNIQUE: Computed axial tomography of the head was obtained. IV contrast was not requested. All CT scans are performed using dose optimization technique as appropriate and may include automated exposure control or mA/KV adjustment according to patient size. FINDINGS: An intracranial bleed is not seen . The ventricles are normal in caliber. No extra-axial fluid collection is noted. Basal ganglia calcifications unchanged Fluid within the sinuses/ mastoids is not seen. IMPRESSION: No acute intracranial abnormality is seen. If patient's symptoms persist MRI of the bra in would be recommended.
--- NOTE | 2020-07-26 09:51 | RAD REPORT ---
EXAM DESCRIPTION: RAD - Tib Fib Right - 07/26/2020 9:24 am CLINICAL HISTORY: Right leg pain FINDINGS: No fracture is seen. A radiopaque foreign body is not seen
--- NOTE | 2020-07-26 10:29 | EDPHYS ---
Physician Documentation [facility] Name: Jeannie Giron Age: 60 yrs Sex: Female : 1960 Arrival Date: 07/26/2020 Time: 08:41 Bed 17 Private MD: ED Physician Sonu Bee HPI: 07/26 09:44 This 60 yrs old Female presents to ER via EMS with complaints of Fall Injury, jmm Laceration To Leg. 09:44 Details of fall: The patient fell from an upright position, while walking. Onset: The jmm symptoms/episode began/occurred acutely, just prior to arrival. Associated injuries: The patient sustained injury to the head, right leg. The patient has not experienced similar symptoms in the past. Historical: - Allergies: 08:52 Ciprofloxacin; ap3 08:52 Codeine; ap3 08:52 Demerol; ap3 08:52 Hydrocodone-Acetaminophen; ap3 08:52 Iodinated Contrast Media - IV Dye; ap3 08:52 Iodine; ap3 08:52 Levaquin; ap3 08:52 Rocephin (rash); ap3 08:52 SHELLFISH; ap3 - Home Meds: 08:52 metformin 1,000 mg Oral TG24 1 tab 2 times per day [Active]; pantoprazole 40 mg Oral ap3 TbEC 1 tab once daily [Active]; ibuprofen 800 mg Oral tab 1 tab as needed [Active]; Jardiance 25 mg Oral tab 1 tab once daily [Active]; lisinopril 5 mg Oral tab once daily [Active]; loratadine 10 mg Oral tab 1 tab once daily [Active]; tamsulosin 0.4 mg Oral cp24 1 cap once daily [Active]; Tresiba FlexTouch U-200 200 unit/mL (3 mL) subcutaneous inpn [Active]; - PMHx: 08:52 ADD/ADHD; Arthritis; Diabetes - NIDDM; Kidney stones; polyps; Osteoporosis; Osteopenia; ap3 - PSHx: 08:52 neck; Cholecystectomy; Lithotripsy; Tonsillectomy; Carpal Tunnel Repair; ap3 - Immunization history:: Adult Immunizations up to date. - Social history:: Smoking status: Patient denies any tobacco usage or history of. ROS: 09:33 Constitutional: Negative for fever, chills, and weight loss, Cardiovascular: Negative [facility] for chest pain, palpitations, and edema, Respiratory: Negative for shortness of breath, cough, wheezing, and pleuritic chest pain. 09:33 MS/extremity: Positive for injury or acute deformity, laceration. 09:33 Neuro: Positive for headache. 09:33 All other systems are negative. Exam: 09:33 Constitutional: This is a well developed, well nourished patient who is awake, alert, jmm and in no acute distress. Head/Face: atraumatic. Eyes: EOMI, no conjunctival erythema appreciated ENT: Moist Mucus Membranes Neck: Trachea midline, Supple Chest/axilla: Normal chest wall appearance and motion. Cardiovascular: Regular rate and rhythm. No edema appreciated Respiratory: Normal respirations, no respiratory distress appreciated Abdomen/GI: Non distended, soft Back: Normal ROM 09:33 Neuro: Awake and alert, normal gait Psych: Behavior is normal, Mood is normal, Patient is cooperative and pleasant 09:33 Skin: 6 cm laceration right lower leg. Vital Signs: 08:41 BP 139 / 66; Pulse 76; Resp 16; Temp 97.8; Pulse Ox 98% on R/A; Pain 8/10; ap3 08:56 BP 132 / 55; Pulse 71; Resp 17; Pulse Ox 100% on R/A; ap3 10:15 BP 117 / 65; Pulse 68; Resp 16; Pulse Ox 99% on R/A; ap3 Laceration: 09:44 Wound Repair of 6cm ( 2.4in ) subcutaneous laceration to right leg. Distal jmm neuro/vascular/tendon intact. Anesthesia: Local anesthetic administered with 5 mls of 1% lidocaine w/ Epi. Wound prep: Simple cleansing with betadine. Skin closed with 11 4-0 Prolene using running sutures and sterile technique. Patient tolerated well. MDM: 10:28 Patient medically screened. [facility] 07/26 08:56 Order name: Tib Fib Right XRAY; Complete Time: 10:27 [facility] 07/26 08:56 Order name: CT Head Brain wo Cont; Complete Time: 10:27 [facility] 07/26 08:56 Order name: Prolene, Sutures; Complete Time: 09:45 [facility] 07/26 08:56 Order name: Dressing - Wound; Complete Time: 09:07 [facility] 07/26 08:56 Order name: Gloves, Sterile; Complete Time: 09:07 kdr 07/26 08:56 Order name: Setup Suture Tray; Complete Time: 09:07 kdr Administered Medications: 09:07 Drug: Ibuprofen 800 mg Route: PO; ap3 10:34 Follow up: Response: No adverse reaction; Pain is decreased ap3 09:31 Drug: Lidocaine-Epinephrine -1%: (1:100,000) 5 ml {Note: administered by the provider ap3 at bedside.} Volume: 20 ml; Route: Infiltration; Disposition: 17:36 Co-signature as Attending Physician, Sonu Bee MD I agree with the assessment and [facility] plan of care. Disposition: 07/26/20 10:28 Discharged to Home. Impression: Superficial injury of head, Right Lower Leg Cutaneous Laceration, accidental, unspecified. - Condition is Stable. - Discharge Instructions: Head Injury, Adult, Laceration Care, Adult. - Prescriptions for orphenadrine citrate 100 mg Oral Tablet Sustained Release - take 1 tablet by ORAL route 2 times per day As needed; 20 tablet. - Medication Reconciliation Form, Thank You Letter, Antibiotic Education, Prescription Opioid Use form. - Follow up: Private Physician; When: 7 - 10 days; Reason: Recheck today's complaints, Continuance of care, Staple/Suture removal, Re-evaluation by your physician. Signatures: Dispatcher [employer] EDMS Sonu Bee MD MD [facility] Fantasma Gonzalez PA PA jmm Prokisch, Amanda RN RN ap3 Corrections: (The following items were deleted from the chart) 10:36 10:28 07/26/2020 10:28 Discharged to Home. Impression: Superficial injury of head; ap3 Right Lower Leg Cutaneous Laceration, accidental, unspecified. Condition is Stable. Forms are Medication Reconciliation Form, Thank You Letter, Antibiotic Education, Prescription Opioid Use. Follow up: Private Physician; When: 7 - 10 days; Reason: Recheck today's complaints, Continuance of care, Staple/Suture removal, Re-evaluation by your physician. wes
--- NOTE | 2020-07-26 10:29 | ER ---
Nurse's Notes [facility] Name: Jeannie Giron Age: 60 yrs Sex: Female : 1960 Arrival Date: 07/26/2020 Time: 08:41 Bed 17 Private MD: Diagnosis: Superficial injury of head;Right Lower Leg Cutaneous Laceration, accidental, unspecified Presentation: 07/26 08:41 Chief complaint: Patient states: she fell when she got out of the shower, and hit her ap3 leg on the edge of the tile. patient states she has a laceration to her right lower leg, aprox 3" long. She states she also "bumped" her head but denies LOC. Chief complaint:. Coronavirus screen: At this time, the client does not indicate any symptoms associated with coronavirus-19. Ebola Screen: No symptoms or risks identified at this time. Initial Sepsis Screen: Does the patient meet any 2 criteria? No. Patient's initial sepsis screen is negative. Does the patient have a suspected source of infection? No. Patient's initial sepsis screen is negative. Risk Assessment: Do you want to hurt yourself or someone else? Patient reports no desire to harm self or others. Onset of symptoms was July 26, 2020. 08:41 Method Of Arrival: EMS: [facility] ap3 08:41 Acuity: SHOSHANA 3 ap3 Triage Assessment: 08:52 General: Appears in no apparent distress. comfortable, Behavior is calm, cooperative, ap3 appropriate for age. Pain: Complains of pain in medial aspect of right calf Pain does not radiate. Pain currently is 8 out of 10 on a pain scale. Quality of pain is described as throbbing, Pain began suddenly. EENT: No signs and/or symptoms were reported regarding the EENT system. Neuro: Level of Consciousness is awake, alert, obeys commands, Oriented to person, place, time, situation, Denies dizziness. Cardiovascular: Capillary refill < 3 seconds Pulses are palpable in right dorsalis pedis artery and left dorsalis pedis artery. Respiratory: Airway is patent Respiratory effort is even, unlabored, Respiratory pattern is regular, symmetrical. GI: No signs and/or symptoms were reported involving the gastrointestinal system. : No signs and/or symptoms were reported regarding the genitourinary system. Derm: Wound noted medial aspect of right calf Wound is laceration from fall. Injury Description: Laceration sustained to medial aspect of right calf is about 3" in length, bleeding is controlled. Historical: - Allergies: 08:52 Ciprofloxacin; ap3 08:52 Codeine; ap3 08:52 Demerol; ap3 08:52 Hydrocodone-Acetaminophen; ap3 08:52 Iodinated Contrast Media - IV Dye; ap3 08:52 Iodine; ap3 08:52 Levaquin; ap3 08:52 Rocephin (rash); ap3 08:52 SHELLFISH; ap3 - Home Meds: 08:52 metformin 1,000 mg Oral TG24 1 tab 2 times per day [Active]; pantoprazole 40 mg Oral ap3 TbEC 1 tab once daily [Active]; ibuprofen 800 mg Oral tab 1 tab as needed [Active]; Jardiance 25 mg Oral tab 1 tab once daily [Active]; lisinopril 5 mg Oral tab once daily [Active]; loratadine 10 mg Oral tab 1 tab once daily [Active]; tamsulosin 0.4 mg Oral cp24 1 cap once daily [Active]; Tresiba FlexTouch U-200 200 unit/mL (3 mL) subcutaneous inpn [Active]; - PMHx: 08:52 ADD/ADHD; Arthritis; Diabetes - NIDDM; Kidney stones; polyps; Osteoporosis; Osteopenia; ap3 - PSHx: 08:52 neck; Cholecystectomy; Lithotripsy; Tonsillectomy; Carpal Tunnel Repair; ap3 - Immunization history:: Adult Immunizations up to date. - Social history:: Smoking status: Patient denies any tobacco usage or history of. Screenin:57 Abuse screen: Denies threats or abuse. Nutritional screening: No deficits noted. ap3 Tuberculosis screening: No symptoms or risk factors identified. Fall Risk Fall in past 12 months (25 points). No secondary diagnosis (0 pts). No IV (0 pts). Ambulatory Aid- None/Bed Rest/Nurse Assist (0 pts). Gait- Normal/Bed Rest/Wheelchair (0 pts) Mental Status- Oriented to own ability (0 pts). Total Hodges Fall Scale indicates Low Risk Score (25-44 pts). Fall prevention measures have been instituted. Side Rails Up X 2 Frequent Obs/Assesments occuring Family Present and informed to notify staff if they need to leave bedside As available Patient and Family Educated on Fall Prevention Program and strategies. Assessment: 08:52 General: see triage assessment. ap3 10:20 Reassessment: Patient and/or family updated on plan of care and expected duration. Pain ap3 level reassessed. Patient is alert, oriented x 3, equal unlabored respirations, skin warm/dry/pink. Vital Signs: 08:41 BP 139 / 66; Pulse 76; Resp 16; Temp 97.8; Pulse Ox 98% on R/A; Pain 8/10; ap3 08:56 BP 132 / 55; Pulse 71; Resp 17; Pulse Ox 100% on R/A; ap3 10:15 BP 117 / 65; Pulse 68; Resp 16; Pulse Ox 99% on R/A; ap3 ED Course: 08:41 Patient arrived in ED. ap3 08:43 Triage completed. ap3 08:49 Sonu Bee MD is Attending Physician. kdr 08:57 Arm band placed on right wrist. ap3 08:58 Kiana Neville, LEONOR is Primary Nurse. ap3 08:58 Patient has correct armband on for positive identification. Bed in low position. Call ap3 light in reach. Side rails up X2. Adult w/ patient. Pulse ox on. NIBP on. Door closed. Noise minimized. 09:11 CT Head Brain wo Cont In Process Unspecified. EDMS 09:21 Tib Fib Right XRAY In Process Unspecified. EDMS 09:25 Patient moved back from CT. ap3 10:29 Fantasma Gonzalez PA is PHCP. jmm 10:33 No provider procedures requiring assistance completed. Patient did not have IV access ap3 during this emergency room visit. Administered Medications: 09:07 Drug: Ibuprofen 800 mg Route: PO; ap3 10:34 Follow up: Response: No adverse reaction; Pain is decreased ap3 09:31 Drug: Lidocaine-Epinephrine -1%: (1:100,000) 5 ml {Note: administered by the provider ap3 at bedside.} Volume: 20 ml; Route: Infiltration; Outcome: 10:28 Discharge ordered by . jmm 10:36 Discharged to home ambulatory, with significant other. ap3 10:36 Condition: good 10:36 Discharge instructions given to patient, significant other, Instructed on discharge instructions, follow up and referral plans. medication usage, wound care, Demonstrated understanding of instructions, follow-up care, medications, wound care, Prescriptions given X 1. 10:36 Patient left the ED. ap3 Signatures: Dispatcher [employer] EDMS Sonu Bee MD MD kdr Mickail, Joel, PA PA jmm Prokisch, Amanda RN RN ap3
[2020-07-26 10:42] VITALS: TEMP 97.8
[2020-07-26 10:44] VITALS: BP 117/65; O2SAT 99
== END 2020-07-26 10:36 | disposition home or self-care (01) ==
LOC: ER 08:35
PROC: 0JQN0ZZ Repair Right Lower Leg Subcutaneous Tissue and Fascia, Open Approach (ICD-10-PCS; principal; 2020-07-26)
DX: S81.811A Laceration without foreign body, right lower leg, initial encounter (principal); W18.39XA Other fall on same level, initial encounter; Y93.01 Activity, walking, marching and hiking; E11.9 Type 2 diabetes mellitus without complications; Z79.4 Long term (current) use of insulin; Z88.1 Allergy status to other antibiotic agents; Z88.5 Allergy status to narcotic agent; Z91.013 Allergy to seafood; Z91.041 Radiographic dye allergy status
CPT/HCPCS: 70450; 99284

== ENCOUNTER 2022-01-07 10:25 | Emergency (ER) | payer OTHER ==
--- OUTSIDE RECORDS SUMMARY | 2022-01-07 10:28 | XMS REPORT | Continuity of Care Document ---
:1960 Author Organization [facility] t Address [address] [place] [address] Dr. Med[address]. [address] [place] [address] Care Team Providers Name Role Phone Asked, No Pcp Primary Care Physician Unavailable Doyle Julian MD Attending Clinician Cuauhtemoc Hoffman Attending Clinician Keira Attending Clinician Unavailable Keira Admitting Clinician Unavailable Payers Payer Name Policy Type Policy Number Effective Date Expiration Date Akash HESS (POS) [id number] 2019 00:00:00 Problems Condition Condition Condition Status Onset Resolution Last Treating Co mments Source Name Details Category Date Date Treatment Clinician Date Irritable Irritable Problem Active Katie colton bowel Bowel 607 Family syndrome Syndrome 00:00: Practi c 00 e 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 [facility] y due to y Due to 0-24 Family diabetes Diabetes 00:00: Practi c mellitus Mellitus 00 e Cataract Cataract Problem Active 2020-02 Jeffery ge 0-24 Family 00:00: Practic 00 e Type 2 Type 2 Problem Active 2020-02 [facility] diabetes Diabetes 0-13 Family mellitus Mellitus 00:00: Practi c 00 e Pure Pure Problem Active [facility] hyperchole Hyperchole 9-13 breonna sterolemia sterolemia 00:00: Pr actic 00 e Obesity Obesity Problem Active [facility] 9-13 Family 00:00: Practic 00 e Steatosis Steatosis Problem Active Katie colton of liver of Liver 9- Family 00:00: Practic 00 e 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 6-16 Fami ly liver Liver 00:00: Practic 00 e General General Problem Active [facility] finding of Finding of 6-16 Thien ravi observatio Observatio 00:00: Pr actic n of n of 00 e patient Patient Fredrickso Fredrickso Problem Active [facility] n type IIa n Type IIa -16 Thien ravi hyperlipop Hyperlipop 00:00: Pr actic roteinemia roteinemia 00 e Finding Finding Problem Active [facility] related to Related to 10-19 breonna sleep Sleep 00:00: Practic 00 e Finding of Finding of Problem Active [facility] esophagus Esophagus 10-19 Fami ly 00:00: Practic 00 e Bone Bone Problem Active [facility] density Density 7-18 Family finding Finding 00:00: Practic 00 e Liver Liver Problem Active [facility] enzyme Enzyme 3-18 Family levels - Levels - 00:00: Practi c finding Finding 00 e Hyperlipid Hyperlipid Problem Active [facility] emia emia 3-18 Family 00:00: Practic 00 e Acute Acute Problem Active [facility] pancreatit Pancreatit Tihen ravi is is Practic e Urinary Urinary Problem Active [place] [facility] [facility] infectious Infectious Pr actic disease Disease e Tingling Tingling Problem Active Jeffery ge of skin of Skin Family Practic e Elevated Elevated Problem Active Jeffery ge level of Level of Family transamina Transamina Pr actic se and se and e lactic Lactic acid Acid dehydrogen Dehydrogen ase ase Influenza Influenza Problem Active Katie colton vaccine Vaccine Family needed Needed Practic e Disorder Disorder Problem Active [facility] ge of skin of Skin Family and/or And/or Practic subcutaneo Subcutaneo e us tissue us Tissue Helicobact Helicobact Problem Active [facility] er blood er Blood Family test Test Practic observatio Observatio e ns ns Pain due Pain Due Problem Active [facility] ge to to Family varicose Varicose Practi c veins of Veins of e lower Lower extremity Extremity Disorder Disorder Problem Active [facility] ge of of Family musculoske Musculoske Pr actic letal letal e system System Temporal Temporal Problem Active [facility] ge finding Finding Family Practic e Onychomyco Onychomyco Problem Active [facility] sis sis Family Practic e Depressive Depressive Problem Active [facility] disorder Disorder Family Practic e Nonprolife Nonprolife Problem Active [facility] rative rative Family retinopath Retinopath Pr actic y due to y Due to e diabetes Diabetes mellitus Mellitus Allergies, Adverse Reactions, Alerts Allergy Allergy Status [...] to Family DERIVED substanc Practic e e Trulicit Allergy Active Severe Abdominal Vill age y to pain Family substanc Practic e e Tussicap Allergy Active [place] s to Family substanc Practic e e Social History Social Habit Start Date Stop Date Quantity Comments Source Sex Ass[birth year] At [birth year] [facility] 00:00:00 00:00:00 Smoking Status Start Date Stop Date Source Never Smoker [facility] P ractice Tobacco smoking consumption unknown [facility] Medications Ordered Filled Start Stop Current Ordering Indication Dosage Frequency Signature Comments Components Source Medication Medication Date Date Medication? Clinician (SIG) Name Name albuterol albuterol No albuterol [place] sulfate HFA sulfate HFA sulfate Family 90 90 HFA 90 Practic mcg/actuati mcg/actuati mcg/actuat e on aerosol on aerosol ion inhaler USE inhaler USE aerosol 2 PUFFS BY 2 PUFFS BY inhaler MOUTH EVERY MOUTH EVERY USE 2 FOUR HOURS FOUR HOURS PUFFS BY NEEDED NEEDED MOUTH FOR FOR EVERY FOUR SHORTNESS SHORTNESS HOURS OF BREATH OF BREATH NEEDED FOR SHORTNESS OF BREATH alendronate alendronate No alendronat [facility] 35 mg 35 mg e 35 mg [facility] tablet tablet tablet Practic e azelastine azelastine No azelastine [facility] 137 mcg 137 mcg 137 mcg Family (0.1 %) (0.1 %) (0.1 %) Practi c nasal spray nasal spray nasal e aerosol aerosol spray aerosol BD Jess 2nd BD Jess 2nd No BD Jess [facility] Gen Pen Gen Pen 2nd Gen Family Needle 32 Needle 32 Pen Needle Practic gauge x gauge x 32 gauge x e " USE " USE " USE DIRECTED DIRECTED ONCE DAILY ONCE DAILY DIRECTED ONCE DAILY BD BD No BD [place] Ultra-Fine Ultra-Fine Ultra-Fine Family Mini Pen Mini Pen Mini Pen Pra ctic Needle 31 Needle 31 Needle 31 e gauge x gauge x gauge x 04/25" USE 1 04/25" USE 1 04/25" USE ONCE DAILY ONCE DAILY 1 ONCE DAILY benzonatate benzonatate No benzonatat [facility] 100 mg 100 mg e 100 mg Family capsule capsule capsule Practi c e Calcium 500 Calcium 500 No Calcium [facility] 1 tablet 1 tablet 500 1 Family once weekly once weekly tablet Practic with meal with meal once e weekly with meal escitalopra escitalopra No escitalopr [place] m 10 mg m 10 mg am 10 mg Famil y tablet TAKE tablet TAKE tablet Practic 1 TABLET BY 1 TABLET BY TAKE 1 e MOUTH EVERY MOUTH EVERY TABLET BY DAY WITH DAY WITH MOUTH BREAKFAST BREAKFAST EVERY DAY WITH BREAKFAST famotidine famotidine No famotidine [facility] 20 mg 20 mg 20 mg Family tablet tablet tablet Practic e fluticasone fluticasone No fluticason [facility] propionate propionate e Fam carla 50 50 propionate Practic mcg/actuati mcg/actuati 50 e on nasal on nasal mcg/actuat spray,suspe spray,suspe ion nasal nsion nsion spray,susp ension gabapentin gabapentin No gabapentin [facility] 300 mg 300 mg 300 mg Family capsule capsule capsule Practi c e gentamicin gentamicin No gentamicin [facility] 0.3 % eye 0.3 % eye 0.3 % eye Family drops drops drops Practic e Ilevro 0.3 Ilevro 0.3 No Ilevro 0.3 Village % eye % eye % eye Family drops,suspe drops,suspe drops,susp Practic nsion nsion ension e Jardiance Jardiance No Jardiance [facility] 25 mg 25 mg 25 mg Family tablet TAKE tablet TAKE tablet Practic ONE TABLET ONE TABLET TAKE ONE e BY MOUTH BY MOUTH TABLET BY DAILY DAILY MOUTH DAILY lisinopril lisinopril No lisinopril [facility] 5 mg tablet 5 mg tablet 5 mg F amily tablet Practic e loratadine loratadine No loratadine [facility] 10 mg 10 mg 10 mg Family tablet tablet tablet Practic e lorazepam lorazepam No lorazepam [facility] 0.5 mg 0.5 mg 0.5 mg Family tablet tablet tablet Practic e metformin metformin No 1 Q1D metformin [facility] ER 500 mg ER 500 mg ER [...] for 30 days. 30 days. 30 days. metformin metformin No metformin [facility] ER 500 mg ER 500 mg ER 500 mg Family tablet,exte tablet,exte tablet,ext Practic nded nded ended e release 24 release 24 release 24 hr TAKE ONE hr TAKE ONE hr TAKE TABLET BY TABLET BY ONE TABLET MOUTH TWICE MOUTH TWICE BY MOUTH A DAY WITH A DAY WITH TWICE A A MEAL A MEAL DAY WITH A MEAL metoclopram metoclopram No metoclopra [facility] nicole 10 mg nicole 10 mg mide 10 mg Family tablet tablet tablet Practic e montelukast montelukast No montelukas [facility] 10 mg 10 mg t 10 mg Family tablet tablet tablet Practic e omeprazole omeprazole No omeprazole [facility] 40 mg 40 mg 40 mg Family capsule,del capsule,del capsule,de Practic ayed ayed layed e release release release TAKE 1 TAKE 1 TAKE 1 CAPSULE BY CAPSULE BY CAPSULE BY MOUTH EVERY MOUTH EVERY MOUTH MORNING MORNING EVERY MORNING OneTouch OneTouch No OneTouch Katie colton Delica Plus Delica Plus Delica Family Lancet 33 Lancet 33 Plus Pract ic gauge gauge Lancet 33 e gauge OneTouch OneTouch No OneTouch Katie colton Verio test Verio test Verio test Family strips USe strips USe strips USe Practic twice daily twice daily twice e daily orphenadrin orphenadrin No orphenadri [facility] e citrate e citrate ne citrate Family ER 100 mg ER 100 mg ER 100 mg Practic tablet,exte tablet,exte tablet,ext e nded nded ended release release release Ozempic Ozempic No .5mg Q1W Ozempic [facility] e 0.25 mg or 0.25 mg or 0.25 mg or Family 0.5 mg (2 0.5 mg (2 0.5 mg (2 Practic mg/1.5 mL) mg/1.5 mL) mg/1.5 mL) e subcutaneou subcutaneou subcutaneo s pen s pen us pen injector injector injector Inject 0.5 Inject 0.5 Inject 0.5 mg every mg every mg every week by week by week by subcutaneou subcutaneou subcutaneo s route. s route. us route. rosuvastati rosuvastati No rosuvastat [facility] n 40 mg n 40 mg in 40 mg Famil y tablet TAKE tablet TAKE tablet Practic 1 TABLET BY 1 TABLET BY TAKE 1 e MOUTH MOUTH TABLET BY EVERYDAY AT EVERYDAY AT MOUTH BEDTIME BEDTIME EVERYDAY AT BEDTIME Sutab Sutab No Sutab [place] 1.479-0.188 1.479-0.188 1.479-0.18 Family -0.225 gram -0.225 gram 8-0.225 Practic tablet tablet gram e tablet Tresiba Tresiba No Tresiba [facility] FlexTouch FlexTouch FlexTouch Family U-200 U-200 U-200 Practic insulin 200 insulin 200 insulin e unit/mL (3 unit/mL (3 200 mL) mL) unit/mL (3 subcutaneou subcutaneou mL) s pen Give s pen Give subcutaneo 10 units in 10 units in us pen AM and AM and Give 10 increase as increase as units in directed: directed: AM and TDD 60 TDD 60 increase as directed: TDD 60 triamcinolo triamcinolo No triamcinol [facility] ne ne one Family acetonide acetonide acetonide Practic 0.1 % 0.1 % 0.1 % e topical topical topical cream cream cream Vitamin D2 Vitamin D2 No Vitamin D2 [facility] 1,250 mcg 1,250 mcg 1,250 mcg [facility] (50,000 (50,000 (50,000 Practi c unit) unit) unit) e capsule capsule capsule Immunizations Ordered Immunization Filled Immunization Date Status Commen ts Source Name Name Non-US Vaccine Non-US Vaccine 2020-04-27 Completed [facility] e Family COVID-19 PS COVID-19 PS 00:00:00 Practice (EpiVacCorona) (EpiVacCorona) Non-US Vaccine Non-US Vaccine 2020-04-01 Completed [facility] e Family COVID-19 PS COVID-19 PS 00:00:00 Practice (EpiVacCorona) (EpiVacCorona) influenza, influenza, 2019-10-12 Completed [place] [place] injectable, injectable, 00:00:00 Practice quadrivalent quadrivalent tetanus toxoid, tetanus toxoid, 2018-02-10 Completed [facility] unspecified unspecified 00:00:00 Practice formulation formulation Vital Signs Vital Name Observation Time Observation Value Comments Source BP Diastolic 2021-07-17 00:00:00 70 mm[Hg] [facility] Height 2021-07-17 00:00:00 61 [in_i] [facility] BMI (Body Mass 2021-07-17 00:00:00 30.8 kg/m2 [facility] Index) Practice BP Systolic 2021-07-17 00:00:00 118 mm[Hg] [place] Practice Body Weight 2021-07-17 00:00:00 163 [lb_av] [place] Practice Height 2020-11-22 00:00:00 61 [in_i] [place] BMI (Body Mass 2020-11-22 00:00:00 30.9 kg/m2 [facility] Family Index) Practice BP Systolic 2020-11-22 00:00:00 113 mm[Hg] [place] Practice Body Weight 2020-11-22 00:00:00 163.6 [lb_av] [place] Practice BP Diastolic 2020-11-22 00:00:00 75 mm[Hg] [place] Practice BP Diastolic 2019-11-04 00:00:00 68 mm[Hg] [place] Practice Height 2019-11-04 00:00:00 61 [in_i] [place] Practice BMI (Body Mass 2019-11-04 00:00:00 32.5 kg/m2 [facility] Family Index) Practice BP Systolic 2019-11-04 00:00:00 118 mm[Hg] [place] Practice Body Weight 2019-11-04 00:00:00 171.8 [lb_av] [place] Practice Body weight 2022-01-02 13:08:00 73.483 kg [facility] Procedures Procedure Date / Time Performing Clinician Source Performed MRI ABDOMEN W WO CONTRAST 2022-01-02 14:05:00 Cuauhtemoc Hoffman [facility] Cholecystectomy ([place] Fa breonna Bladder Removal) Practice Colonoscopy [facility] Orthopedic Surgery [facility] Famil y Practice Plan of Care Planned Activity Planned Date Details Comments Source Future Scheduled 2022-01-07 HEPATITIS B VACCINES Met [facility] Test 09:07:58 (1 of 3 - 3-dose series) [code = HEPATITIS B VACCINES (1 of 3 - 3-dose series)] Future Scheduled 2022-01-07 Pneumococcal Vaccine: [facility] Test 09:07:58 Pediatrics (0 to 5 Years) and At-Risk Patients (6 to 64 Years) (1 - PCV) [code = Pneumococcal Vaccine: Pediatrics (0 to 5 Years) and At-Risk Patients (6 to 64 Years) (1 - PCV)] Future Scheduled 2022-01-07 Hepatitis C screening [facility] Test 09:07:58 (procedure) [code = 867823761] Future Scheduled 2022-01-07 Screening for [facility] Test 09:07:58 malignant neoplasm of cervix (procedure) [code = 037802063] Future Scheduled 2022-01-07 BREAST CANCER [facility] Test 09:07:58 SCREENING [code = BREAST CANCER SCREENING] Future Scheduled 2022-01-07 COLONOSCOPY SCREENING [facility] Test 09:07:58 [code = COLONOSCOPY SCREENING] Future Scheduled 2022-01-07 SHINGLES VACCINES (2 Met [facility] Test 09:07:58 of 2) [code = SHINGLES VACCINES (2 of 2)] Diagnostic Test 2021-07-17 glucose, fingerstick, Katie colton Family Pending 00:00:00 blood [code = Practice glucose, fingerstick, blood] Diagnostic Test 2021-07-17 hemoglobin A1C, Ava cr Pending 00:00:00 fingerstick [code = Practice hemoglobin A1C, fingerstick] Encounters Start End Encounter Admission Attending Care Care Encounter Source Date/Time Date/Time Type Type Clinicians Facility Department ID 2022-01-02 2022-01-02 [facility] 1.2.[facility].1 [id number] [facility] 06:48:25 23:59:00 Encounter Doyle [id number] 3.430.2.7 Hospit a .[id number] l .8 2022-01-02 2022-01-02 Travel 1.2.840.1 [id number] [facility] 00:00:00 00:00:[id number] 3.430.2.7 0.2.7.3.698 Ho spita .[id number] 084.8 l .8 2022-01-02 2022-01-02 [id number] [place] 00:00:00 00:00:[address] 2021-12-28 2021-12-28 Transcribe Cuauhtemoc Hoffman 1.2.840.1 [id number] [facility] 00:00:00 00:00:[id number] 3.430.2.7 Hospit a .3.306864 l .8 2021-08-22 2021-08-22 Outpatient Daniel_T VFP VFP [id number] [address] [place] [address] 00:00:00 00:00:00 [id number] Family Practic e 2021-08-07 2021-08-07 Outpatient Daniel_T VFP VFP [id number] [address] [place] [address] 12:33:00 12:33:00 [id number] Family Practic e 2021-08-06 2021-08-06 Outpatient Daniel_T VFP VFP [id number] [address] [place] [address] 07:28:00 07:28:00 [id number] Family Practic e 2021-08-01 2021-08-01 Outpatient Daniel_T VFP VFP [id number] [address] [place] [address] 07:09:00 07:09:00 [id number] Family Practic e 2021-07-17 2021-07-17 Outpatient Daniel_T VFP VFP [id number] [address] [place] [address] 05:41:00 05:41:00 [id number] Family Practic e 2021-07-17 2021-07-17 Jose VFP [place] - [id number] [place] ill[place] 00:00:00 00:00:00 [facility] Family [facility]ega[facility] - Justin loera MD: [id number] VM_HOU_Lavell e [facility], [address], [place] [address] , Ph. 2020-11-24 2020-11-24 Outpatient Daniel_T VFP VFP [id number] [address] [place] [address] 03:26:00 03:26:00 [id number] Family Practic e 2020-11-24 2020-11-24 Outpatient Daniel_T VFP VFP [id number] [address] [place] [address] 03:26:00 03:26:00 [id number] Family Practic e 2020-11-24 2020-11-24 Outpatient Daniel_T VFP VFP [id number] [address] [place] [address] 03:26:00 03:26:00 [id number] Family Practic e 2020-11-22 2020-11-22 Outpatient Daniel_T VFP VFP [id number] [address] [place] [address] 05:08:00 05:08:00 [id number] Family Practic e 2020-11-22 2020-11-22 Jose VFP [place] - [id number] [facility] ill[place] 00:00:00 00:00:00 Suzanne [facility] Family [facility] - Practi c MD: [id number] GA_JEANCARLOS_Lavell e [facility], [facility] [address], [place] [address] , Ph. 2020-05-10 2020-05-10 Outpatient Daniel_T VFP VFP [id number] [address] [place] [address] 09:38:00 09:38:00 [id number] Family Practic e 2019-11-15 2019-11-15 Outpatient Daniel_T VFP VFP [id number] [address] [place] [address] 03:53:00 03:53:00 Family Practic e 2019-11-04 2019-11-04 Outpatient Daniel_T VFP VFP [id number] [address] [place] [address] 02:23:00 02:23:00 [id number] Family Practic e 2019-11-04 2019-11-04 Jose VFP [place] - [id number] V ill[place] 00:00:00 00:00:00 Suzanne [facility] Family [facility] - Practi luz maria MD: [id number] GA_Dleta e [facility], [facility] [address], [place] [address] , Ph. 2019-10-22 2019-10-22 Outpatient daniel_t VFP VFP [id number] [address] [place] [address] 12:06:00 12:06:00 [id number] Family Practic e Results Test Description Test Time Test Comments Results Result Comments Source Glucose [Mass/volume] in Capillary blood 2021-07-17 15:50:51 Test Item Value Reference Range Interpretation Comme nts Blood Glucose: mg/dl (test code = Blood Glucose: mg/dl) 383 [facility] [id number] 15:48:31 Test Item Value Reference Range Interpretation Comments Hemoglobin A1C Fingerstick: (test code 10.0 = Hemoglobin A1C Fingerstick:) [facility]
--- NOTE | 2022-01-07 12:02 | RAD REPORT ---
EXAM DESCRIPTION: CT - Stone Protocol - 01/07/2022 11:44 am CLINICAL HISTORY: Flank pain. Nephrolithiasis, symptomatic/complicated COMPARISON: Abdomen Pelvis Wo Contrast dated 11/20/2021 TECHNIQUE: Axial images were obtained without oral or IV contrast. Lack of contrast limits solid org an and vascular assessment. The [id number] spans the entirety of the system partially obscuring uppermost abdomen and lung bases. Coronal reformatted images were obtained and reviewed. All CT scans are performed using dose optimization technique as appropriate and may include automated exposure control or mA/KV adjustment according to patient size. FINDINGS: The lower lung neal are clear. Cholecystectomy Imaged portions of the liver and spleen show no suspicious findings on non-contrast imaging.Mild/alexandro y hepatic cirrhosis pattern suspected. The pancreas and adrenal glands are normal. Small calculi seen posterior right midpole calyx without hydronephrosis evident. No left-sided stone. No bowel obstruction, free air, free fluid or abscess. Normal appendix noted. No significant bony abnormality. IMPRESSION: Right nephrolithiasis without hydronephrosis.
--- NOTE | 2022-01-07 12:42 | ER ---
Nurse's Notes [facility] Name: Jeannie Giron Age: 61 yrs Sex: Female : 1960 Arrival Date: 01/07/2022 Time: 10:31 Bed IW3 Private MD: Jerry Genao C Diagnosis: Nephrolithiasis Presentation: 01/07 11:10 Chief complaint: Patient states: R flank and R sided abd pain that began 4 months ago. ss Pt reports that she had a lithotripsy back in November, but they pain has not gone away. Coronavirus screen: Client denies travel out of the [place] in the last 14 days. Ebola Screen: Patient denies exposure to infectious person. Patient denies travel to an Ebola-affected area in the 21 days before illness onset. Initial Sepsis Screen: Does the patient meet any 2 criteria? No. Patient's initial sepsis screen is negative. Does the patient have a suspected source of infection? No. Patient's initial sepsis screen is negative. Risk Assessment: Do you want to hurt yourself or someone else? Patient reports no desire to harm self or others. Onset of symptoms was September 2021. 11:10 Method Of Arrival: Ambulatory ss 11:10 Acuity: SHOSHANA 3 ss Historical: - Allergies: 11:12 Bactrim; ss 11:12 Ciprofloxacin; ss 11:12 Codeine; ss 11:12 Demerol; ss 11:12 Hydrocodone-Acetaminophen; ss 11:12 Iodinated Contrast Media - IV Dye; ss 11:12 Iodine; ss 11:12 Levaquin; ss 11:12 Rocephin (rash); ss 11:12 SHELLFISH; ss - PMHx: 11:12 ADD/ADHD; Arthritis; Diabetes - IDDM; Kidney stones; GERD; Osteopenia; Osteoporosis; ss polyps; RAMOS; Cirrhosis of liver; - PSHx: 11:12 Cholecystectomy; Lithotripsy; neck sx; ss - Immunization history:: Client reports receiving the 2nd dose of the Covid vaccine. - Social history:: Smoking status: Patient denies any tobacco usage or history of. Vital Signs: 11:10 BP 133 / 70; Pulse 77; Resp 16; Temp 98.5(O); Pulse Ox 99% on R/A; ss ED Course: 10:31 Patient arrived in ED. am2 10:31 Jerry Genao MD is Private Physician. am2 10:55 Roxy Bermudez FNP-C [facility]. snw 10:55 Dago Holly DO is Attending Physician. snw 11:12 Triage completed. ss 11:12 Arm band placed on right wrist. ss 11:45 CT Stone Protocol In Process Unspecified. EDMS 12:41 Jerry Genao MD is Referral Physician. snw 13:53 No provider procedures requiring assistance completed. Patient did not have IV access ss during this emergency room visit. Administered Medications: 12:40 CANCELLED (Physician Discretion): Pepcid (famotidine) 20 mg IVP once; dilute with 10 mL snw 0.9% NaCl; give over 2 minutes 13:48 Drug: Ketorolac 30 mg Route: IM; Site: right deltoid; ss 13:53 Follow up: Response: Medication administered at discharge. ss Outcome: 12:41 Discharge ordered by MD. snw 13:53 Discharged to home ambulatory. ss 13:53 Condition: good 13:53 Discharge instructions given to patient, Instructed on discharge instructions, follow up and referral plans. medication usage, Demonstrated understanding of instructions, follow-up care, medications, Prescriptions given X 1. 13:54 Patient left the ED. ss Signatures: Dispatcher [employer] EDDC Roxy Bermudez FNP-C FNP-Bebow Zunilda Fitzgerald RN RN ss Kiana Garza am2 Corrections: (The following items were deleted from the chart) 11:13 11:12 PMHx: Diabetes - NIDDM; ss ss
--- NOTE | 2022-01-07 12:42 | EDPHYS ---
Physician Documentation [facility] Name: Jeannie Giron Age: 61 yrs Sex: Female : 1960 Arrival Date: 01/07/2022 Time: 10:31 Bed IW3 Private MD: Jerry Genao C ED Physician Dago Holly HPI: 01/07 11:49 This 61 yrs old Female presents to ER via Ambulatory with complaints of Flank snw Pain - right. 11:49 The patient complains of pain in the right mid back. Onset: The symptoms/episode snw began/occurred acutely, 2 month(s) ago, and became worse. Associated signs and symptoms: Pertinent positives: nausea. The patient has experienced similar episodes in the past. Pt sees Dr. Genao, Dr. Ward, Urology, and Hepatology. Historical: - Allergies: 11:12 Bactrim; ss 11:12 Ciprofloxacin; ss 11:12 Codeine; ss 11:12 Demerol; ss 11:12 Hydrocodone-Acetaminophen; ss 11:12 Iodinated Contrast Media - IV Dye; ss 11:12 Iodine; ss 11:12 Levaquin; ss 11:12 Rocephin (rash); ss 11:12 SHELLFISH; ss - PMHx: 11:12 ADD/ADHD; Arthritis; Diabetes - IDDM; Kidney stones; GERD; Osteopenia; Osteoporosis; ss polyps; RAMOS; Cirrhosis of liver; - PSHx: 11:12 Cholecystectomy; Lithotripsy; neck sx; ss - Immunization history:: Client reports receiving the 2nd dose of the Covid vaccine. - Social history:: Smoking status: Patient denies any tobacco usage or history of. ROS: 11:48 Constitutional: Negative for fever, chills, and weight loss, Eyes: Negative for injury, snw pain, redness, and discharge, ENT: Negative for injury, pain, and discharge, Neck: Negative for injury, pain, and swelling, Cardiovascular: Negative for chest pain, palpitations, and edema, Respiratory: Negative for shortness of breath, cough, wheezing, and pleuritic chest pain, Abdomen/GI: Negative for abdominal pain, nausea, vomiting, diarrhea, and constipation. 11:48 Back: Negative for injury and pain, : Negative for injury, bleeding, discharge, and swelling, MS/Extremity: Negative for injury and deformity, Skin: Negative for injury, rash, and discoloration, Neuro: Negative for headache, weakness, numbness, tingling, and seizure. 11:48 Back: Positive for flank pain, on the right. Exam: 11:48 Constitutional: This is a well developed, well nourished patient who is awake, alert, snw and in no acute distress. Head/Face: Normocephalic, atraumatic. Eyes: Pupils equal round and reactive to light, extra-ocular motions intact. Lids and lashes normal. Conjunctiva and sclera are non-icteric and not injected. Cornea within normal limits. Periorbital areas with no swelling, redness, or edema. ENT: Nares patent. No nasal discharge, no septal abnormalities noted. Tympanic membranes are normal and external auditory canals are clear. Oropharynx with no redness, swelling, or masses, exudates, or evidence of obstruction, uvula midline. Mucous membranes moist. Neck: Trachea midline, no thyromegaly or masses palpated, and no cervical lymphadenopathy. Supple, full range of motion without nuchal rigidity, or vertebral point tenderness. No Meningismus. Chest/axilla: Normal chest wall appearance and motion. Nontender with no deformity. No lesions are appreciated. Cardiovascular: Regular rate and rhythm with a normal S1 and S2. No gallops, murmurs, or rubs. Normal PMI, no JVD. No pulse deficits. Respiratory: Lungs have equal breath sounds bilaterally, clear to auscultation and percussion. No rales, rhonchi or wheezes noted. No increased work of breathing, no retractions or nasal flaring. 11:48 Skin: Warm, dry with normal turgor. Normal color with no rashes, no lesions, and no evidence of cellulitis. MS/ Extremity: Pulses equal, no cyanosis. Neurovascular intact. Full, normal range of motion. Neuro: Awake and alert, GCS 15, oriented to person, place, time, and situation. Cranial nerves II-XII grossly intact. Motor strength 5/5 in all extremities. Sensory grossly intact. Cerebellar exam normal. Normal gait. 11:48 Abdomen/GI: Inspection: obese Bowel sounds: normal, Palpation: mild abdominal tenderness, in the posterior aspect of right lateral abdomen, right flank. Vital Signs: 11:10 BP 133 / 70; Pulse 77; Resp 16; Temp 98.5(O); Pulse Ox 99% on R/A; ss MDM: 10:55 Patient medically screened. snw 12:47 Data reviewed: vital signs, nurses notes. Data interpreted: Pulse oximetry: on room air snw is 99 %. Interpretation: normal. Counseling: I had a detailed discussion with the patient and/or guardian regarding: the historical points, exam findings, and any diagnostic results supporting the discharge/admit diagnosis, radiology results, the need for outpatient follow up. 01/07 11:18 Order name: CT Stone Protocol; Complete Time: 12:05 snw Administered Medications: 12:40 CANCELLED (Physician Discretion): Pepcid (famotidine) 20 mg IVP once; dilute with 10 mL snw 0.9% NaCl; give over 2 minutes 13:48 Drug: Ketorolac 30 mg Route: IM; Site: right deltoid; ss 13:53 Follow up: Response: Medication administered at discharge. Disposition: 19:13 Co-signature as Attending Physician, Dago FREEMAN was immediately available on-site ms3 in the Emergency Department for consultation in the care of the patient.. Disposition Summary: 01/07/22 12:41 Discharge Ordered Location: Home snw Condition: Stable snw Diagnosis - Nephrolithiasis snw Followup: snw - With: Emergency Department - When: As needed - Reason: Worsening of condition Followup: snw - With: Jerry Genao MD - When: 1 - 2 days - Reason: Recheck today's complaints, Continuance of care, Re-evaluation by your physician Discharge Instructions: - Discharge Summary Sheet snw - Flank Pain, Adult snw - Renal Colic snw Forms: - Medication Reconciliation Form snw - Thank You Letter snw - Antibiotic Education snw - Prescription Opioid Use snw Prescriptions: - Mobic 7.5 mg Oral Tablet - take 1 tablet by ORAL route once daily take with food; 20 tablet; Refills: 0, snw Product Selection Permitted Signatures: Dispatcher [employer] Roxy Lowe FNP-C FNP-Zunilda Kaye RN RN Dago Seaman DO DO ms3 Corrections: (The following items were deleted from the chart) 11:13 11:12 PMHx: Diabetes - NIDDM; ss ss : 11:20 Pepcid (famotidine) 20 mg IVP once; dilute with 10 mL 0.9% NaCl; give over 2 snw minutes ordered. snw 11:20 IV Saline Lock ordered. snw snw : 11:20 Labs collected and sent ordered. snw snw
[2022-01-07] MEDS ORDERED: KETOROLAC 30 MG/ML INJ ONE (13:44)
[2022-01-07 14:00] VITALS: BP 133/70; TEMP 98.5; O2SAT 99
== END 2022-01-07 13:54 | disposition home or self-care (01) ==
LOC: ER 10:25
DX: N20.0 Calculus of kidney (principal); Z87.442 Personal history of urinary calculi; Z88.1 Allergy status to other antibiotic agents; Z88.3 Allergy status to other anti-infective agents; Z88.5 Allergy status to narcotic agent; Z91.013 Allergy to seafood; Z91.041 Radiographic dye allergy status; Z91.048 Other nonmedicinal substance allergy status
CPT/HCPCS: 74176; 76377; 96372; 99283

== ENCOUNTER 2022-07-27 12:17 | Emergency (ER) | payer OTHER ==
--- OUTSIDE RECORDS SUMMARY | 2022-07-27 12:20 | XMS REPORT | Continuity of Care Document ---
:1960 Author Organization [facility] t Address [address] [place] [address] [address] [place] [address] Care Team Providers Name Role Phone Asked, No Pcp Primary Care Physician Unavailable Doyle Julian MD Attending Clinician Jesus Medel Attending Clinician JESUS HAN Attending Clinician Unavailable Cuauhtemoc Hoffman Attending Clinician Keira Attending Clinician Unavailable JESUS HAN Admitting Clinician Unavailable Keira Admitting Clinician Unavailable Payers Payer Name Policy Type Policy Number Effective Date Expiration Date Akash HESS (POS) [id number] 2019 00:00:00 Problems Condition Condition Condition Status Onset Resolution Last Treating Co mments Source Name Details Category Date Date Treatment Clinician Date Irritable Irritable Problem Active Katie colton bowel Bowel 6-07 Family syndrome Syndrome 00:00: Practi c 00 e 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 [facility] y due to y Due to 0-24 Family diabetes Diabetes 00:00: Practi c mellitus Mellitus 00 e Cataract Cataract Problem Active 2020-02 Jeffery ge 0-24 Family 00:00: Practic 00 e Type 2 Type 2 Problem Active 2020-02 [facility] diabetes Diabetes 0-13 Family mellitus Mellitus 00:00: Practi c 00 e Pure Pure Problem Active [facility] hyperchole Hyperchole 9-13 Fa breonna sterolemia sterolemia 00:00: Pr actic 00 e Obesity Obesity Problem Active [place] 9-13 Family 00:00: Practic 00 e Steatosis Steatosis Problem Active Katie colton of liver of Liver 10-23 Family 00:00: Practic 00 e 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 07-26 Fami ly liver Liver 00:00: Practic 00 e General General Problem Active [facility] finding of Finding of 07-26 [facility] observatio Observatio 00:00: Pr actic n of n of 00 e patient Patient Fredrickso Fredrickso Problem Active [facility] n type IIa n Type IIa 07-26 [facility] hyperlipop Hyperlipop 00:00: Pr actic roteinemia roteinemia 00 e Finding Finding Problem Active [facility] related to Related to 10-19 [facility] sleep Sleep 00:00: Practic 00 e Finding of Finding of Problem Active [facility] esophagus Esophagus 10-19 Fami ly 00:00: Practic 00 e Bone Bone Problem Active [facility] density Density 7-18 Family finding Finding 00:00: Practic 00 e Liver Liver Problem Active [facility] enzyme Enzyme 3-18 Family levels - Levels - 00:00: Practi c finding Finding 00 e Hyperlipid Hyperlipid Problem Active [facility] emia emia 3-18 Family 00:00: Practic 00 e Acute Acute Problem Active [facility] pancreatit Pancreatit [facility] is is Practic e Urinary Urinary Problem [...] Due to e diabetes Diabetes mellitus Mellitus No known No known Disease Unive rs active active ity of problems problems [facility] Allergies, Adverse Reactions, Alerts Allergy Allergy Status Severity Reaction(s) Onset Inactive Treating Comm ents Source Name Type Date Date Clinician IODINE DRUG Active Hives Univers INGREDI -14 ity of 00:00: [place] 00 [facility] [place] CEFTRIAX DRUG Active Hives Univers ONE INGREDI -14 ity of 00:00: [place] 00 [facility] [place] CIPROFLO DRUG Active Hives Univers XACIN INGREDI -14 ity of 00:00: [place] 00 [facility] Sulfamet Propensi Active Rash 0 Univer s hoxazole ty to 14 ity of -Trimeth adverse 00:00: [place] oprim reaction 00 Medical s Branch Ciproflo Propensi Active Hives 0 Univer s xacin ty to -14 ity of adverse 00:00: [place] reaction 00 Medical s Branch Iodine Propensi Active Hives 0 "IV Univers ty to 14 Contrast" ity of adverse 00:00: [place] reaction 00 Medical s Branch Ceftriax Propensi Active Hives 0 Univer s one ty to -14 ity of adverse 00:00: [place] reaction 00 Medical s Branch Shellfis Propensi Active Swelling 2022-0 Univ ers h ty to -14 ity of Derived adverse 00:00: [place] reaction 00 Medical Branch SULFAMET DRUG Active Rash 0 Univers HOXAZOLE 1-14 ity of -TRIMETH 00:00: [place] OPRIM 00 Medical Branch SHELLFIS DRUG Active Hives 0 Univers H INGREDI -14 ity of DERIVED 00:00: [place] 00 [facility] [place] NO KNOWN Drug Active Univers ALLERGIE Class ity of S [facility] Cipro Allergy Active Hives [place] to Family [...] Start Date Stop Date Quantity Comments Source Gender identity [facility] Sexual orientation Method t Hospital Exposure to 2022-02-13 2022-02-23 Not sure [facility] SARS-CoV-2 (event) 00:00:00 10:50:00 Medica l Branch Sex Assigned At [birth year] [facility] 00:00:00 00:00:00 Smoking Status Start Date Stop Date Source Never Smoker [place] Family P ractice Tobacco smoking consumption unknown [facility] Medications Ordered Filled Start Stop Current Ordering Indication Dosage Frequency Signature Comments Components Source Medication Medication Date Date Medication? Clinician (SIG) Name Name benzonatate Yes [id number] 100mg Take 1 Univers 100 mg 1-14 capsule by ity of capsule 00:00: mouth 3 [place] 00 (three) Medical times Branch daily as needed for Cough. methylPREDN Yes [id number] Take by Univers ISolone 4 1-14 mouth ity of mg tablets 00:00: SEE-INSTRU T ex[place] 00 CTIONS. Medical follow Branch package directions albuterol albuterol No albuterol [place] sulfate HFA [...] SHORTNESS OF BREATH alendronate alendronate No alendronat [place] 35 mg 35 mg e 35 mg Family tablet tablet tablet Practic e azelastine azelastine No azelastine [facility] 137 mcg 137 mcg 137 mcg Family [...] 1 ONCE DAILY benzonatate benzonatate No benzonatat [facility] 100 mg 100 mg e 100 mg [...] DAY WITH BREAKFAST famotidine famotidine No famotidine [facility] 20 mg 20 mg 20 mg Family tablet tablet tablet Practic e fluticasone fluticasone No fluticason [facility] propionate propionate e Fam carla 50 50 propionate Practic mcg/actuati mcg/actuati 50 e on nasal on nasal mcg/actuat spray,suspe spray,suspe ion nasal nsion nsion spray,susp ension gabapentin gabapentin No gabapentin [facility] 300 mg 300 mg 300 mg Family capsule capsule capsule Practi c e gentamicin gentamicin No gentamicin [facility] 0.3 % eye 0.3 % eye 0.3 % eye Family drops drops drops Practic e Ilevro 0.3 Ilevro 0.3 No Ilevro 0.3 Village % eye % eye % eye Family drops,suspe drops,suspe drops,susp Practic nsion nsion ension e Jardiance Jardiance No Jardiance [place] 25 mg 25 mg 25 mg Family tablet TAKE tablet TAKE tablet Practic ONE TABLET ONE TABLET TAKE ONE e BY MOUTH BY MOUTH TABLET BY DAILY DAILY MOUTH DAILY lisinopril lisinopril No lisinopril Village 5 mg tablet 5 mg tablet 5 mg F amily tablet Practic e loratadine loratadine No loratadine [facility] 10 mg 10 mg 10 mg Family tablet tablet tablet Practic e lorazepam lorazepam No lorazepam [facility] 0.5 mg 0.5 mg 0.5 mg Family [...] days. 30 days. metformin metformin No metformin [facility] ER 500 mg ER 500 [...] WITH A MEAL metoclopram metoclopram No metoclopra [facility] nicole 10 mg nicole 10 mg mide 10 mg Family tablet tablet tablet Practic e montelukast montelukast No montelukas [facility] 10 mg 10 mg t 10 mg Family tablet tablet tablet Practic e omeprazole omeprazole No omeprazole [facility] 40 mg 40 mg 40 mg Family [...] twice e daily orphenadrin orphenadrin No orphenadri [facility] e citrate e citrate ne citrate Family [...] route. us route. rosuvastati rosuvastati No rosuvastat [place] n 40 mg n 40 mg in [...] directed: TDD 60 triamcinolo triamcinolo No triamcinol [facility] ne ne one Family acetonide acetonide acetonide Practic 0.1 % 0.1 % 0.1 % e topical topical topical cream cream cream Vitamin D2 Vitamin D2 No Vitamin D2 [facility] 1,250 mcg 1,250 mcg 1,250 mcg Family (50,000 (50,000 (50,000 Practi c unit) unit) unit) e capsule capsule capsule Immunizations Ordered Filled Immunization Date Status Comments [facility] e Immunization Name Name SARS-COV-2 COVID-19 2020-04-29 Completed Unive rsity of PFIZER VACCINE 00:00:00 [facility] Non-US Vaccine Non-US Vaccine 2020-04-27 Completed Angelina pugh Family COVID-19 PS COVID-19 PS 00:00:00 Practice (EpiVacCorona) (EpiVacCorona) SARS-COV-2 COVID-19 2020-04-08 Completed Unive rsity of PFIZER VACCINE 00:00:00 [facility] Non-US Vaccine Non-US Vaccine 2020-04-01 Completed Vill[place] e Family COVID-19 PS COVID-19 PS 00:00:00 Practice (EpiVacCorona) (EpiVacCorona) influenza, influenza, 2019-10-12 Completed [facility] Family injectable, injectable, 00:00:00 Practice quadrivalent quadrivalent tetanus toxoid, tetanus toxoid, 2018-02-10 Completed Vill age Family unspecified unspecified 00:00:00 Practice formulation formulation Vital Signs Vital Name Observation Time Observation Value Comments Source Systolic blood 2022-02-23 16:51:00 136 mm[Hg] [facility]iver [facility] Diastolic blood 2022-02-23 16:51:00 74 mm[Hg] Unive rsity [facility] Heart rate 2022-02-23 16:50:00 75 /min [facility] Body temperature 2022-02-23 16:50:00 36.61 [facility] Respiratory rate 2022-02-23 16:50:00 16 /min [facility] height 2022-02-23 16:50:00 154.9 cm [facility] Body weight 2022-02-23 16:50:00 73.029 kg [facility] BMI 2022-02-23 16:50:00 30.42 kg/m2 [facility] Oxygen saturation in 2022-02-23 16:50:00 98 /min [facility] Arterial blood by [facility] Pulse oximetry Branch BP Diastolic 2021-07-17 00:00:00 70 mm[Hg] [facility] Height 2021-07-17 00:00:00 61 [in_i] [facility] BMI (Body Mass 2021-07-17 00:00:00 30.8 kg/m2 Vill e Family Index) Practice BP Systolic 2021-07-17 00:00:00 118 mm[Hg] [facility] Family Practice Body Weight 2021-07-17 00:00:00 163 [lb_av] [facility] BP Diastolic 2020-11-22 00:00:00 75 mm[Hg] [facility] Height 2020-11-22 00:00:00 61 [in_i] [facility] Family Practice BMI (Body Mass 2020-11-22 00:00:00 30.9 kg/m2 Villag e Family Index) Practice BP Systolic 2020-11-22 00:00:00 113 mm[Hg] [facility] Body Weight 2020-11-22 00:00:00 163.6 [lb_av] [facility] BP Diastolic 2019-11-04 00:00:00 68 mm[Hg] [facility] Height 2019-11-04 00:00:00 61 [in_i] [facility] BMI (Body Mass 2019-11-04 00:00:00 32.5 kg/m2 [facility] e Family Index) Practice BP Systolic 2019-11-04 00:00:00 118 mm[Hg] [facility] Body Weight 2019-11-04 00:00:00 171.8 [lb_av] [facility] Body weight 2022-04-19 13:57:00 73.483 kg [facility] Body weight 2022-01-02 13:08:00 73.483 kg [facility] Procedures Procedure Date / Time Performing Clinician Source Performed MRI ABDOMEN W WO CONTRAST 2022-04-19 14:30:00 Doyle Julian [facility] XR CHEST 1 VW 2022-02-23 17:13:23 Jesus Han [facility] RAPID STREP SCREEN FOR 2022-02-23 17:07:00 Jesus Han [facility] GROUP A Medical Branch RAPID INFLUENZA A/B 2022-02-23 16:58:00 Jesus Han [facility] Medical Branch COVID-19 (ID NOW RAPID 2022-02-23 16:58:00 Jesus Han [facility] TESTING) Medical Branch NOTICE OF PRIVACY 2022-02-23 16:45:46 Doctor Unassigned, [facility] PRACTICES [place] [facility] MRI ABDOMEN W WO CONTRAST 2022-01-02 14:05:00 Cuauhtemoc Hoffman [facility] Cholecystectomy (Gall [place] Fa breonna Bladder Removal) Practice Colonoscopy [facility] Orthopedic Surgery [place] Famil y Practice Plan of Care Planned Activity Planned Date Details Comments Source Future Scheduled 2022-07-17 Screening for [facility] Test 19:50:54 malignant neoplasm of colon (procedure) [code = 230865530] Future Scheduled 2022-07-17 Screening for [facility] Test 19:50:54 malignant neoplasm of colon (procedure) [code = 769286774] Future Scheduled 2022-07-17 Screening for [facility] Test 19:50:54 malignant neoplasm of colon (procedure) [code = 457421933] Future Scheduled 2022-07-17 Pneumococcal Vaccine: [facility] Test 19:50:54 Pediatrics (0 to 5 Years) and At-Risk Patients (6 to 64 Years) (1 - PCV) [code = Pneumococcal Vaccine: Pediatrics (0 to 5 Years) and At-Risk Patients (6 to 64 Years) (1 - PCV)] Future Scheduled 2022-07-17 Hepatitis C screening [facility] Test 19:50:54 (procedure) [code = 200799740] Future Scheduled 2022-07-17 Screening for [facility] Test 19:50:54 malignant neoplasm of cervix (procedure) [code = 504392712] Future Scheduled 2022-07-17 BREAST CANCER [facility] Test 19:50:54 SCREENING [code = BREAST CANCER SCREENING] Future Scheduled 2022-07-17 Screening for [facility] Test 19:50:54 malignant neoplasm of colon (procedure) [code = 375348579] Future Scheduled 2022-07-17 Screening for [facility] Test 19:50:54 malignant neoplasm of colon (procedure) [code = 868305950] Future Scheduled 2022-07-17 SHINGLES VACCINES (2 Met [facility] Test 19:50:54 of 2) [code = SHINGLES VACCINES (2 of 2)] Future Scheduled 2022-07-17 HEPATITIS B VACCINES Met [facility] Test 19:50:54 (1 of 3 - Risk 3-dose series) [code = HEPATITIS B VACCINES (1 of 3 - Risk 3-dose series)] Future Scheduled 2022-07-17 INFLUENZA VACCINE Method [facility] Test 19:50:54 [code = INFLUENZA VACCINE] Future Scheduled 2022-01-07 HEPATITIS B VACCINES Met [facility] Test 09:07:58 (1 of 3 - 3-dose series) [code = HEPATITIS B VACCINES (1 of 3 - 3-dose series)] Future Scheduled 2022-01-07 Pneumococcal Vaccine: [facility] Test 09:07:58 Pediatrics (0 to 5 Years) and At-Risk Patients (6 to 64 Years) (1 - PCV) [code = Pneumococcal Vaccine: Pediatrics (0 to 5 Years) and At-Risk Patients (6 to 64 Years) (1 - PCV)] Future Scheduled 2022-01-07 Hepatitis C screening [facility] Test 09:07:58 (procedure) [code = 495069923] Future Scheduled 2022-01-07 Screening for [facility] Test 09:07:58 malignant neoplasm of cervix (procedure) [code = 901854201] Future Scheduled 2022-01-07 BREAST CANCER [facility] Test 09:07:58 SCREENING [code = BREAST CANCER SCREENING] Future Scheduled 2022-01-07 COLONOSCOPY SCREENING [facility] Test 09:07:58 [code = COLONOSCOPY SCREENING] Future Scheduled 2022-01-07 SHINGLES VACCINES (2 Met [facility] Test 09:07:58 of 2) [code = SHINGLES VACCINES (2 of 2)] Diagnostic Test 2021-07-17 glucose, fingerstick, Katie colton Family Pending 00:00:00 blood [code = Practice glucose, fingerstick, blood] Diagnostic Test 2021-07-17 hemoglobin A1C, [place] Tania cr Pending 00:00:00 fingerstick [code = Practice hemoglobin A1C, fingerstick] Encounters Start End Encounter Admission Attending Care Care Encounter Source Date/Time Date/Time Type Type Clinicians Facility Department ID 2022-04-19 2022-04-19 [facility], 1.2.840.1 [id number] Methodi 07:43:22 23:59:00 Encounter Doyle [id number] 3.430.2.7 Hospit a .3.039204 l .8 2022-04-19 2022-04-19 Outpatient [facility] [id number] [place] 00:00:00 00:00:[address] DO[address] 2022-04-19 2022-04-19 Travel 1.2.840.1 1.2.227.287 [id number] Methodi 00:00:00 00:00:[address] 3.430.2.7 0.2.7.3.698 Ho spita .3.993051 084.8 l .8 2022-04-12 2022-04-12 Transcribe [facility], 1.2.840.1 [id number] Methodi 00:00:00 00:00:00 Orders Doyle [id number] 3.430.2.7 Hospit a .3.706569 l .8 2022-02-23 2022-02-23 Emergency [facility] 1.2.840.114 [id number] Univers 10:53:00 11:51:00 Jesus APARICIO 350.1.13.10 i ty [facility] 4.2.7.2.686 [facility] [id number] [place] [id number] Branch 2022-02-23 2022-02-23 Emergency X [facility] ERT [id number] Univers 10:53:00 11:51:00 JESUS ity [facility] 2022-01-02 2022-01-02 [facility], 1.2.840.1 [id number] Methodi 06:48:25 23:59:00 Encounter Doyle [id number] 3.430.2.7 Hospit a .3.255906 l .8 2022-01-02 2022-01-02 [facility], 1.2.840.1 [id number] Methodi 06:48:25 23:59:00 Encounter Doyle [address]50.1.[address] 3.430.2.7 Hospit a .3.883958 l .8 2022-01-02 2022-01-02 Travel 1.2.840.1 1.2.547.896 [id number] Methodi 00:00:00 00:00:[address] 3.430.2.7 0.2.7.3.698 Ho spita .3.020710 084.8 l .8 2022-01-02 2022-01-02 Travel 1.2.840.1 1.2.216.403 [id number] Methodi 00:00:00 00:00:[address] 3.430.2.7 0.2.7.3.698 Ho spita .3.769952 084.8 l .8 2021-12-28 2021-12-28 Transcrifabricio HoffmanCuauhtemoc 1.2.840.1 [id number] Methodi 00:00:00 00:00:[id number] 3.430.2.7 Hospit a .3.752873 l .8 2021-12-28 2021-12-28 Transcrifabricio MackenziejohnCuauhtemoc 1.2.840.1 [id number] Methodi 00:00:00 00:00:[id number] 3.430.2.7 Hospit a .3.517345 l .8 2021-08-22 2021-08-22 Outpatient Daniel_T VFP VFP [id number] [address] [place] [address] 00:00:00 00:00:00 [id number] Family Practic e 2021-08-22 2021-08-22 Outpatient Daniel_T VFP VFP [id number] [address] [place] [address] 00:00:00 00:00:00 [id number] Family Practic e 2021-08-07 2021-08-07 Outpatient Daniel_T VFP VFP [id number] [address] [place] [address] 12:33:00 12:33:00 [id number] Family Practic e 2021-08-06 2021-08-06 Outpatient Daniel_T VFP VFP [id number] [address] [place] [address] 07:28:00 07:28:00 [id number] Family Practic e 2021-08-01 2021-08-01 Outpatient Daniel_T VFP VFP [id number] [address] [place] [address] 07:09:00 07:09:00 [id number] Family Practic e 2021-07-17 2021-07-17 Outpatient Daniel_T VFP VFP [id number] [address] [place] [address] 05:41:00 05:41:00 [id number] Family Practic e 2021-07-17 2021-07-17 Jose VFP [place] - [id number] V illage 00:00:00 00:00:00 [facility] Jay Vega - Justin loera MD: [id number] GA_Tereza e [facility], [facility] [address] [address] , Ph. 2020-11-24 2020-11-24 Outpatient Daniel_T VFP VFP [id number] [address] [place] [address] 03:26:00 03:26:00 [id number] Family Practic e 2020-11-24 2020-11-24 Outpatient Daniel_T VFP VFP [id number] [address] [place] [address] 03:26:00 03:26:00 [id number] Family Practic e 2020-11-24 2020-11-24 Outpatient Daniel_T VFP VFP [id number] [address] [place] [address] 03:26:00 03:26:00 [id number] Family Practic e 2020-11-22 2020-11-22 Outpatient Daniel_T VFP VFP [id number] [address] [place] [address] 05:08:00 05:08:00 [id number] Family Practic e 2020-11-22 2020-11-22 Jose VFP [place] - [id number] V illage 00:00:00 00:00:00 [facility] Family [facility] - Pracvale loera MD: [id number] [email or web address]_Garyluis e [facility], [facility] [address], [place] [address] , Ph. 2020-05-10 2020-05-10 Outpatient Daniel_T VFP VFP [id number] [address] [place] [address] 09:38:00 09:38:00 [id number] Family Practic e 2019-11-15 2019-11-15 Outpatient Daniel_T VFP VFP [id number] [address] [place] [address] 03:53:00 03:53:00 Family Practic e 2019-11-04 2019-11-04 Outpatient Daniel_T VFP VFP [id number] [address] [place] [address] 02:23:00 02:23:00 [id number] Family Practic e 2019-11-04 2019-11-04 Jose VFP [place] - [id number] V illage 00:00:00 00:00:00 [facility] Family [facility] - Pracvale loera MD: [id number] [email or web address]_Toro pugh [facility], [facility] [address], [place] [address] , Ph. 2019-10-22 2019-10-22 Outpatient gary_db [facility] [id number] 06-29 [facility] 12:06:00 12:06:00 [id number] [facility] Practic e Results Test Description Test Time Test Comments Results Result Comments Source Glucose [Mass/volume] in Capillary blood 2021-07-17 15:50:51 Test Item Value Reference Range Interpretation Comme nts Blood Glucose: mg/dl (test code = Blood Glucose: mg/dl) 383 [facility] [id number] 15:48:31 Test Item Value Reference Range Interpretation Comments Hemoglobin A1C Fingerstick: (test code 10.0 = Hemoglobin A1C Fingerstick:) [facility]
[2022-07-27 12:59] LABS: Absolute Lymphocytes (CBC) 1.5 K/uL (0.7-4.9); Lymphocytes % 31.2 % (15.3-44.8); MCV 93.1 fL (80-100); MPV 10.5 fL (7.6-11.3)
--- NOTE | 2022-07-27 13:16 | RAD REPORT ---
EXAM DESCRIPTION: CT - Head Brain Wo Cont - 07/27/2022 1:10 pm CLINICAL HISTORY: DIZZINESS Headache, drowsiness COMPARISON: Head Brain Wo Cont dated 07/26/2020; Head Brain Wo Cont dated 03/24/2019 TECHNIQUE: All CT scans are performed using dose optimization technique as appropriate and may inclu de automated exposure control or mA/KV adjustment according to patient size. FINDINGS: No intracranial hemorrhage, hydrocephalus or extra-axial fluid collection.No areas of brai n edema or evidence of midline shift. The paranasal sinuses and mastoids are clear. The calvarium is intact. IMPRESSION: No acute intracranial abnormality.
[2022-07-27 13:21] LABS: Troponin High Sensitivity 3.6 pg/mL (<58.9)
--- NOTE | 2022-07-27 13:22 | RAD REPORT ---
EXAM DESCRIPTION: RAD - Chest Single View - 07/27/2022 1:16 pm CLINICAL HISTORY: CHEST PAIN Chest pain. COMPARISON: Chest Single View dated 02/06/2020; Abdomen 1 View (KUB) dated 07/12/2019; Abdomen 1 View (KUB) dated 07/10/2018; Chest Pa And Lat (2 Views) dated 06/23/2018 FINDINGS: Portable technique limits examination quality. The lungs are grossly clear. The heart is normal in size. No displaced fractures.Cervical hardware pl ate. IMPRESSION: No acute intrathoracic process suspected.
--- NOTE | 2022-07-27 14:59 | EDPHYS ---
Physician Documentation [facility] Name: Jeannie Giron Age: 62 yrs Sex: Female : 1960 Arrival Date: 07/27/2022 Time: 12:17 Bed 5 Private MD: ED Physician Alvino Abbott HPI: 07/27 13:20 This 62 yrs old Female presents to ER via Ambulatory with complaints of Chest rn Pain, Dizziness, Neck and Upper Back Pain. 13:20 The patient or guardian reports chest pain that is located primarily in the substernal rn area. Onset: 1 month(s) ago. The pain radiates to left neck. Associated signs and symptoms: Pertinent positives: dizziness, Pertinent negatives: abdominal pain, lower extremity pain, lower extremity swelling, nausea, near syncope, palpitations, shortness of breath, syncope, vomiting. The chest pain is described as a heaviness. Modifying factors: The symptoms are alleviated by nothing. the symptoms are aggravated by nothing. Severity of pain: At its worst the pain was moderate in the emergency department the pain has improved. The patient has not experienced similar symptoms in the past. The patient has not recently seen a physician. Pt reports 1 month of intermittent dizziness and chest heaviness. Dizziness not worse with position, does not feel lack of coordination, not falling, cannot discover pattern. Chest pain is central, heaviness, radiates to neck. No sob. + nausea/vomiting. NO diaphoresis. Reports some increase in belching. . Historical: - Allergies: 12:31 Bactrim; kr3 12:31 Ciprofloxacin; kr3 12:31 Codeine; kr3 12:31 Iodinated Contrast Media - IV Dye; kr3 12:31 Iodine; kr3 12:31 Levaquin; kr3 12:31 Rocephin (rash); kr3 12:31 SHELLFISH; kr3 - PMHx: 12:31 ADD/ADHD; Arthritis; cirrhosis of liver; Diabetes - IDDM; GERD; Kidney stones; RAMOS; kr3 Osteopenia; Osteoporosis; polyps; - PSHx: 12:31 Neck sx; Lithotripsy; Cholecystectomy; Tonsillectomy; kr3 - Immunization history:: Adult Immunizations up to date. - Social history:: Smoking status: Patient denies any tobacco usage or history of. - Family history:: not pertinent. - Hospitalizations: : No recent hospitalization is reported. ROS: 13:20 Constitutional: Negative for fever, chills, and weight loss, Eyes: Negative for injury, rn pain, redness, and discharge, Neck: Negative for injury, pain, and swelling, Cardiovascular: Negative for palpitations, and edema, Respiratory: Negative for shortness of breath, cough, wheezing, and pleuritic chest pain, Abdomen/GI: Negative for abdominal pain, nausea, vomiting, diarrhea, and constipation, Back: Negative for injury and pain, : Negative for injury, bleeding, discharge, and swelling, MS/Extremity: Negative for injury and deformity, Skin: Negative for injury, rash, and discoloration, Neuro: Negative for weakness, numbness, tingling, and seizure. Exam: 13:20 Constitutional: This is a well developed, well nourished patient who is awake, alert, rn and in no acute distress. Head/Face: Normocephalic, atraumatic. Neck: Trachea midline, no masses palpated, and no cervical lymphadenopathy. Supple, full range of motion without nuchal rigidity, or vertebral point tenderness. No Meningismus. Cardiovascular: Regular rate and rhythm. No pulse deficits. Respiratory: No increased work of breathing, no retractions or nasal flaring. Abdomen/GI: Soft, non-tender Skin: Warm, dry MS/ Extremity: Pulses equal, no cyanosis Neuro: Awake and alert, GCS 15, oriented to person, place, time, and situation. Cranial nerves II-XII grossly intact. Motor strength 5/5 in all extremities. Sensory grossly intact. Cerebellar exam normal. 14:40 ECG was reviewed by the Attending Physician. rn Vital Signs: 12:26 BP 144 / 65; Pulse 77; Resp 18; Temp 98.8; Pulse Ox 99% on R/A; Weight 74.84 kg; Height kr3 5 ft. 1 in. ; Pain 8/10; 12:41 BP 161 / 71; Pulse 80; Resp 18; Pulse Ox 99% on R/A; Pain 4/10; ml4 15:02 BP 148 / 78; Pulse 71; Resp 20; Pulse Ox 97% on R/A; Pain 0/10; ml4 12:26 Body Mass Index 31.18 (74.84 kg, 154.94 cm) kr3 12:26 Pain Scale: Adult kr3 12:41 Pain Scale: Adult ml4 15:02 Pain Scale: Adult ml4 Hazel Coma Score: 12:41 Eye Response: spontaneous(4). Motor Response: obeys commands(6). Verbal Response: ml4 oriented(5). Total: 15. 15:02 Eye Response: spontaneous(4). Motor Response: obeys commands(6). Verbal Response: ml4 oriented(5). Total: 15. MDM: 12:27 Patient medically screened. rn 14:40 Differential diagnosis: acute myocardial infarction, acute pericarditis, anxiety, rn coronary artery disease chest wall pain, costochondritis, esophagitis, gastritis, gastroesophageal reflux disease (GERD), pericarditis, pleurisy, pneumonia, pneumothorax, stable angina, unstable angina. 14:57 Data reviewed: vital signs, nurses notes, lab test result(s), EKG, radiologic studies, rn CT scan, plain films, and as a result, I will discharge patient. Counseling: I had a detailed discussion with the patient and/or guardian regarding: the historical points, exam findings, and any diagnostic results supporting the discharge/admit diagnosis, lab results, radiology results, the need for outpatient follow up, to return to the emergency department if symptoms worsen or persist or if there are any questions or concerns that arise at home. Special discussion: I discussed with the patient/guardian in detail that at this point there is no indication for admission to the hospital. It is understood, however, that if the symptoms persist or worsen the patient needs to return immediately for re-evaluation. Based on the history and exam findings, there is no indication for further emergent testing or inpatient evaluation. I discussed with the patient/guardian the need to see the otr truck driver for further evaluation of the symptoms. I discussed with the patient/guardian the need to see the primary care provider for further evaluation of the symptoms. ED course: Trop neg x 2, ECG NSR x 2, symptoms of dizziness and chest heaviness for [address] head. Will dc home with pcp and Dr. Rosales f/reina . 07/27 12:47 Order name: Basic Metabolic Panel; Complete Time: 13:24 rn 07/27 12:47 Order name: CBC with Diff; Complete Time: 13:24 rn 07/27 12:47 Order name: NT PRO-BNP; Complete Time: 13:24 rn 07/27 12:47 Order name: Troponin HS; Complete Time: 13:24 rn 07/27 14:22 Order name: Troponin High Sensitivity; Complete Time: 14:57 rn 07/27 12:47 Order name: XRAY Chest (1 view); Complete Time: 13:24 rn 07/27 12:47 Order name: CT Head Brain wo Cont; Complete Time: 13:24 rn 07/27 12:47 Order name: EKG; Complete Time: 12:48 rn 07/27 14:22 Order name: EKG; Complete Time: 14:24 rn 07/27 12:47 Order name: Cardiac monitoring; Complete Time: 12:48 rn 07/27 12:47 Order name: EKG - Nurse/Tech; Complete Time: 12:48 rn 07/27 12:47 Order name: IV Saline Lock; Complete Time: 12:48 rn 07/27 12:47 Order name: Labs collected and sent; Complete Time: 12:48 rn 07/27 12:47 Order name: O2 Per Protocol; Complete Time: 12:48 rn 07/27 12:47 Order name: O2 Sat Monitoring; Complete Time: 12:48 rn 07/27 14:22 Order name: EKG - Nurse/Tech; Complete Time: 14:28 rn EC:40 Rate is 75 beats/min. Rhythm is regular. QRS [place] is Normal. [place] interval is normal. QRS rn interval is normal. QT interval is normal. No Q waves. T waves are Normal. No ST changes noted. Clinical impression: Normal ECG. Interpreted by me. Reviewed by me. Administered Medications: No medications were administered Disposition Summary: 07/27/22 14:59 Discharge Ordered Location: Home rn Problem: new rn Symptoms: have improved rn Condition: Stable rn Diagnosis - Dizziness and giddiness rn - Chest pain, unspecified rn Followup: rn - With: Sundeep Rosales MD - When: As needed - Reason: Recheck today's complaints, Re-evaluation by your physician Discharge Instructions: - Discharge Summary Sheet rn - Nonspecific Chest Pain, Adult rn - Dizziness rn Forms: - Medication Reconciliation Form rn - Thank You Letter rn - Antibiotic learning solutions specialist - Prescription Opioid Use rn Signatures: Dispatcher [employer] EDAlvino Pugh MD MD rn Reid, Kelley RN RN kr3 Corrections: (The following items were deleted from the chart) 12:32 12:31 Allergies: Demerol; kr3 kr3 12:32 12:31 Allergies: Hydrocodone-Acetaminophen; kr3 kr3 13:19 12:48 Head Angio+CT.RAD.BRZ ordered. EDMS EDMS 13:20 12:48 Neck Angio+CT.RAD.BRZ ordered. EDMS EDMS
--- NOTE | 2022-07-27 14:59 | ER ---
Nurse's Notes [facility] Name: Jeannie Giron Age: 62 yrs Sex: Female : 1960 Arrival Date: 07/27/2022 Time: 12:17 Bed 5 Private MD: Diagnosis: Dizziness and giddiness;Chest pain, unspecified Presentation: 07/27 12:26 Chief complaint: Patient states: Chest pain x 1 month that has increasingly worsened, kr3 and now has become more pressure over the week. Dizziness that comes and goes, pain in left side of neck. Coronavirus screen: Vaccine status: Patient reports receiving the 2nd dose of the covid vaccine. Ebola Screen: Patient denies travel to an Ebola-affected area in the 21 days before illness onset. Initial Sepsis Screen: Does the patient meet any 2 criteria? No. Patient's initial sepsis screen is negative. Does the patient have a suspected source of infection? No. Patient's initial sepsis screen is negative. Risk Assessment: Do you want to hurt yourself or someone else? Patient reports no desire to harm self or others. Onset of symptoms was June 24, 2022. 12:26 Method Of Arrival: Ambulatory kr3 12:26 Acuity: SHOSHANA 3 kr3 Triage Assessment: 12:33 General: Appears in no apparent distress. comfortable, Behavior is calm, cooperative, kr3 appropriate for age. Pain: Complains of pain in chest. EENT: No deficits noted. Neuro: Level of Consciousness is awake, alert, obeys commands, Oriented to person, place, time, situation. Cardiovascular: Patient's skin is warm and dry. Respiratory: Airway is patent Respiratory effort is even, unlabored, Respiratory pattern is regular, symmetrical. GI: No signs and/or symptoms were reported involving the gastrointestinal system. : No signs and/or symptoms were reported regarding the genitourinary system. Derm: No signs and/or symptoms reported regarding the dermatologic system. Musculoskeletal: No signs and/or symptoms reported regarding the musculoskeletal system. Historical: - Allergies: 12:31 Bactrim; kr3 12:31 Ciprofloxacin; kr3 12:31 Codeine; kr3 12:31 Iodinated Contrast Media - IV Dye; kr3 12:31 Iodine; kr3 12:31 Levaquin; kr3 12:31 Rocephin (rash); kr3 12:31 SHELLFISH; kr3 - PMHx: 12:31 ADD/ADHD; Arthritis; cirrhosis of liver; Diabetes - IDDM; GERD; Kidney stones; RAMOS; kr3 Osteopenia; Osteoporosis; polyps; - PSHx: 12:31 Neck sx; Lithotripsy; Cholecystectomy; Tonsillectomy; kr3 - Immunization history:: Adult Immunizations up to date. - Social history:: Smoking status: Patient denies any tobacco usage or history of. - Family history:: not pertinent. - Hospitalizations: : No recent hospitalization is reported. Screenin:41 [facility] ED Fall Risk Assessment (Adult) History of falling in the last 3 months, ml4 including since admission No falls in past 3 months (0 pts) Confusion or Disorientation No (0 pts) Intoxicated or Sedated No (0 pts) Impaired Gait No (0 pts) Mobility Assist Device Used No (0 pt) Altered Elimination No (0 pt) Score/Fall Risk Level 0 - 2 = Low Risk. Abuse screen: Denies threats or abuse. Nutritional screening: No deficits noted. Tuberculosis screening: No symptoms or risk factors identified. Assessment: 12:42 Also complains of shortness of breath. Reassessment: Patient appears in no apparent ml4 distress at this time. General: Appears in no apparent distress. comfortable, Behavior is calm, cooperative, appropriate for age. Pain: Complains of pain in left supraclavicular area and mid-sternal area Pain does not radiate. Pain currently is 5 out of 10 on a pain scale. Quality of pain is described as pressure, Pain began 1 month Is intermittent, Alleviated by nothing. Neuro: No deficits noted. Level of Consciousness is awake, alert, obeys commands, Oriented to person, place, time, situation, Appropriate for age Market Research Coordinator are equal bilaterally Moves all extremities. Full function Gait is steady, Speech is normal, Facial symmetry appears normal, Pupils are PERRLA, Intact Denies weakness blurred vision numbness photophobia. Cardiovascular: Reports chest pain. Respiratory: No deficits noted. Airway is patent Respiratory effort is even, unlabored, Respiratory pattern is regular, symmetrical. GI: No deficits noted. No signs and/or symptoms were reported involving the gastrointestinal system. : No deficits noted. No signs and/or symptoms were reported regarding the genitourinary system. EENT: No deficits noted. No signs and/or symptoms were reported regarding the EENT system. Derm: No deficits noted. Musculoskeletal: Reports pain in neck L side; but reports this is chronic. 13:20 Reassessment: Patient appears in no apparent distress at this time. No changes from ml4 previously documented assessment. 15:02 Reassessment: Patient appears in no apparent distress at this time. Patient denies pain ml4 at this time. Vital Signs: 12:26 BP 144 / 65; Pulse 77; Resp 18; Temp 98.8; Pulse Ox 99% on R/A; Weight 74.84 kg; Height kr3 5 ft. 1 in. ; Pain 8/10; 12:41 BP 161 / 71; Pulse 80; Resp 18; Pulse Ox 99% on R/A; Pain 4/10; ml4 15:02 BP 148 / 78; Pulse 71; Resp 20; Pulse Ox 97% on R/A; Pain 0/10; ml4 12:26 Body Mass Index 31.18 (74.84 kg, 154.94 cm) kr3 12:26 Pain Scale: Adult kr3 12:41 Pain Scale: Adult ml4 15:02 Pain Scale: Adult ml4 [place] Coma Score: 12:41 Eye Response: spontaneous(4). Motor Response: obeys commands(6). Verbal Response: ml4 oriented(5). Total: 15. 15:02 Eye Response: spontaneous(4). Motor Response: obeys commands(6). Verbal Response: ml4 oriented(5). Total: 15. ED Course: 12:21 Patient arrived in ED. [id number] 12:27 Alvino Abbott MD is Attending Physician. rn 12:31 Triage completed. kr3 12:32 Arm band placed on right wrist. Patient placed in an exam room, on a stretcher. kr3 12:41 LEONOR YatesIII, Deshawn, LEONOR is Primary Nurse. ml4 12:41 EKG done, by ED staff, reviewed by Alvino Abbott MD. zm 12:46 Patient has correct armband on for positive identification. Placed in gown. Bed in low ml4 position. Call light in reach. Side rails up X2. Client placed on continuous cardiac and pulse oximetry monitoring. NIBP monitoring applied. munitions factory worker on. Warm blanket given. Head of bed elevated. 12:48 No provider procedures requiring assistance completed. Inserted saline lock: 20 gauge ml4 in left antecubital area, using aseptic technique. Patient maintains SpO2 saturation greater than 95% on room air. 12:51 by me, sent to lab. ml4 13:12 CT Head Brain wo Cont In Process Unspecified. EDMS 13:18 XRAY Chest (1 view) In Process Unspecified. EDMS 13:45 No apparent distress. Resting quietly. Awaiting radiology results. Awaiting disposition.ml4 13:55 PO fluids given. ml4 14:59 Sundeep Rosales MD is Referral Physician. rn 15:03 IV discontinued, intact, No redness/swelling at site. ml4 Administered Medications: No medications were administered Medication: 12:52 VIS not applicable for this client. ml4 Outcome: 14:59 Discharge ordered by MD. rn 15:04 Discharged to home ambulatory. ml4 15:04 Condition: good 15:04 Discharge instructions given to patient, Instructed on discharge instructions, follow up and referral plans. Demonstrated understanding of instructions, follow-up care. 15:11 Patient left the ED. ml4 Signatures: Dispatcher [employer] EDMS Alvino Abbott MD MD rn Jeffries, Jennifer [email or web address] Christina Perez Kelley RN RN [email or web address] LEONOR YatesIII, Deshawn, RN RN ml4 Corrections: (The following items were deleted from the chart) 12:32 12:31 Allergies: Demerol; kr3 kr3 12:32 12:31 Allergies: Hydrocodone-Acetaminophen; kr3 kr3 12:46 12:42 Also complains of ml4 ml4
[2022-07-27 15:26] VITALS: TEMP 98.8
[2022-07-27 15:37] VITALS: BP 148/78; O2SAT 97
--- NOTE | 2022-07-29 17:53 | EKG ---
Test Date: 2022-07-27 Test Time: 14:28:45 Laborer Stores: STEFANY MEASUREMENT RESULTS: Intervals: Rate: 75 NV: 156 QRSD: 92 QT: 428 QTc: 477 [place]: P: 56 NV: 156 QRS: 57 T: 38 INTERPRETIVE STATEMENTS: Normal sinus rhythm Normal ECG Compared to ECG 07/27/2022 12:36:41 No significant changes Electronically Signed On 07-29-22 17:50:17 CDT by Dustin Giron
--- NOTE | 2022-07-29 17:54 | EKG ---
Test Date: 2022-07-27 Test Time: 12:36:41 Tack Puller Machine: STEFANY MEASUREMENT RESULTS: Intervals: Rate: 73 OK: 136 QRSD: 88 QT: 396 QTc: 436 [place]: P: 39 OK: 136 QRS: 54 T: 40 INTERPRETIVE STATEMENTS: Normal sinus rhythm Normal ECG Compared to ECG 06/20/2020 11:18:39 Sinus bradycardia no longer present Electronically Signed On 07-29-22 17:50:25 CDT by Dustin Giron
== END 2022-07-27 15:11 | disposition home or self-care (01) ==
LOC: ER 12:17
DX: R07.89 Other chest pain (principal); E11.9 Type 2 diabetes mellitus without complications; Z88.1 Allergy status to other antibiotic agents; Z88.3 Allergy status to other anti-infective agents; Z88.5 Allergy status to narcotic agent; Z91.013 Allergy to seafood; Z91.041 Radiographic dye allergy status; Z91.048 Other nonmedicinal substance allergy status
CPT/HCPCS: 36415; 70450; 71045; 80048; 83880; 84484; 85025; 93005; 99285

== ENCOUNTER 2023-09-12 10:27 | Observation (INO) | payer OTHER ==
[2023-09-12] MEDS ORDERED: ASPIRIN 81 MG CHEWABLE TABLET ONE (10:42)
--- NOTE | 2023-09-12 10:56 | RAD REPORT ---
EXAM DESCRIPTION: RAD - Chest Single View - 09/12/2023 10:51 am CLINICAL HISTORY: CHEST PAIN Chest pain. COMPARISON: Chest Single View dated 07/27/2022; Chest Single View dated 02/06/2020; Abdomen 1 View (K UB) dated 07/12/2019; Abdomen 1 View (KUB) dated 07/10/2018 FINDINGS: Portable technique limits examination quality. The lungs are grossly clear. The heart is normal in size. No displaced fractures.Cervical hardware pl ate. IMPRESSION: No acute intrathoracic process suspected.
[2023-09-12 10:57] LABS: Absolute Lymphocytes (CBC) 1.4 K/uL (0.7-4.9); Absolute Monocytes 0.4 K/uL (0.1-1.3); Absolute Neutrophil 2.5 K/uL (1.8-8.0); Basophils % 0.8 % (0-1.3); Eosinophils % 0.9 % (0-4.4); Hemoglobin 12.7 g/dL (12.0-15.0); Lymphocytes % 31.4 % (15.3-44.8); MCHC 33.4 g/dL (32.0-36.0); MPV 9.4 fL (7.6-11.3); Monocytes % 8.3 % (3.3-12.3); Neutrophils % 58.6 % (41.7-73.7); Nucleated Red Blood Cells % 0.1 % (0-0); Platelets 170 thou/uL (152-406); RBC Red Blood Cell Count 4.08 M/uL (3.86-4.86); Red Cell Distribution Width 13.1 % (12.1-15.2)
[2023-09-12 11:15] LABS: BUN Blood Urea Nitrogen 18 mg/dL (7-18); Bicarbonate 27 mEq/L (21-32); Glomerular Filtration Rate 102 ml/min (=/>90); Glucose Level 128 mg/dL (74-106); Sodium Level 137 mEq/L (136-145)
[2023-09-12 11:17] LABS: Troponin High Sensitivity < 3.0 pg/mL (<58.9)
--- NOTE | 2023-09-12 11:25 | ER ---
Nurse's Notes [facility] Name: Jeannie Giron Age: 63 yrs Sex: Female : 1960 Arrival Date: 09/12/2023 Time: 10:27 Bed 18 Private MD: Diagnosis: Chest pain, unspecified Presentation: 09/11 10:35 Chief complaint: Patient states: "I started having let sided chest pain last night. I mb9 went to Dr. Pineda office today and he told me to come here.". 10:35 Coronavirus screen: Vaccine status: Patient reports receiving the 2nd dose of the covid mb9 vaccine. Ebola Screen: No symptoms or risks identified at this time. Initial Sepsis Screen: Does the patient meet any 2 criteria? No. Patient's initial sepsis screen is negative. Does the patient have a suspected source of infection? No. Patient's initial sepsis screen is negative. Risk Assessment: Do you want to hurt yourself or someone else? Patient reports no desire to harm self or others. Onset of symptoms was September 12, 2023. 10:35 Method Of Arrival: Ambulatory mb9 10:52 Acuity: SHOSHANA 2 mb9 Triage Assessment: 10:40 General: Appears in no apparent distress. Behavior is calm, cooperative. mb9 10:40 Pain: Complains of pain in chest Pain does not radiate. Pain currently is 5 out of 10 mb9 on a pain scale. Quality of pain is described as burning, Pain began suddenly. EENT: No signs and/or symptoms were reported regarding the EENT system. Neuro: Desai Agitation-Sedation Scale (RASS): 0 - Alert and Calm Level of Consciousness is awake, alert, obeys commands, Oriented to person, place, time, situation, Appropriate for age. Cardiovascular: Reports chest pain. Cardiovascular: Heart tones S1 S2 present Rhythm is regular. Respiratory: Airway is patent Respiratory effort is even, unlabored, Respiratory pattern is regular, symmetrical, Breath sounds are clear bilaterally. GI: Abdomen is round non-distended, Bowel sounds present X 4 quads. : No signs and/or symptoms were reported regarding the genitourinary system. Derm: Skin is pink, warm \\T\\ dry. Musculoskeletal: Range of motion: intact in all extremities. Historical: - Allergies: 10:35 Bactrim; mb9 10:35 Ciprofloxacin; mb9 10:35 Codeine; mb9 10:35 Iodinated Contrast Media - IV Dye; mb9 10:35 Iodine; mb9 10:35 Levaquin; mb9 10:35 Rocephin (rash); mb9 10:35 SHELLFISH; mb9 - Home Meds: 10:35 insulin [Active]; mb9 - PMHx: 10:35 Arthritis; ADD/ADHD; cirrhosis of liver; Diabetes - IDDM; GERD; Kidney stones; RAMOS; mb9 Osteopenia; Osteoporosis; polyps; - PSHx: 10:35 Cholecystectomy; Lithotripsy; Neck sx; Tonsillectomy; mb9 - Immunization history:: Adult Immunizations up to date. - Infectious Disease History:: Denies. - Social history:: Smoking status: Patient denies any tobacco usage or history of. Screenin:59 [facility] ED Fall Risk Assessment (Adult) History of falling in the last 3 months, mb9 including since admission No falls in past 3 months (0 pts) Confusion or Disorientation No (0 pts) Intoxicated or Sedated No (0 pts) Impaired Gait No (0 pts) Mobility Assist Device Used No (0 pt) Altered Elimination No (0 pt) Score/Fall Risk Level 0 - 2 = Low Risk Oriented to surroundings, Maintained a safe environment, Educated pt \\T\\ family on fall prevention, incl call for assistance when getting out of bed. Abuse screen: Denies threats or abuse. Nutritional screening: No deficits noted. Tuberculosis screening: No symptoms or risk factors identified. Assessment: 10:59 Reassessment: see triage assessment. mb9 11:45 Reassessment: No changes from previously documented assessment. Patient and/or family mb9 updated on plan of care and expected duration. Pain level reassessed. Patient is alert, oriented x 3, equal unlabored respirations, skin warm/dry/pink. 12:34 Reassessment: No changes from previously documented assessment. Patient and/or family mb9 updated on plan of care and expected duration. Pain level reassessed. Patient is alert, oriented x 3, equal unlabored respirations, skin warm/dry/pink. 12:35 Reassessment: Report given to laboratory animal caretaker nurse, Juan GALVEZ. mb9 Vital Signs: 10:35 BP 136 / 93; Pulse 66; Resp 18; Temp 98; Pulse Ox 100% ; Weight 70.31 kg; Height 5 ft. mb9 1 in. ; Pain 5/10; 11:26 BP 117 / 64; Pulse 70; Resp 16; Pulse Ox 97% on R/A; mb9 12:34 BP 118 / 61; Pulse 73; Resp 18; Pulse Ox 100% on R/A; mb9 10:35 Body Mass Index 29.29 (70.31 kg, 154.94 cm) mb9 10:35 Pain Scale: Adult mb9 ED Course: 10:29 Patient arrived in ED. ec2 10:29 Bryn Shannon MD is Attending Physician. ec2 10:33 Patricia Fabian, LEONOR is Primary Nurse. mb9 10:35 Arm band placed on. mb9 10:38 Initial lab(s) drawn, by me, sent to lab. EKG done, by ED staff, reviewed by Bryn Shannon MD. Inserted saline lock: 20 gauge in right antecubital area, using aseptic technique. Blood collected. Flushed with 10 mL NS. 10:38 No provider procedures requiring assistance completed. Inserted. mb9 10:53 XRAY Chest (1 view) In Process Unspecified. EDMS 10:55 Triage completed. mb9 11:00 Placed in gown. Bed in low position. Call light in reach. Side rails up X 1. Provided mb9 Education on: press call light if needing anything. Client placed on continuous cardiac and pulse oximetry monitoring. NIBP monitoring applied. 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 Door closed. Noise minimized. Warm blanket given. Pillow given. 11:24 Momo Jerry MD is Hospitalizing Provider. ec2 11:39 Jerry Genao MD is Hospitalizing Provider. ec2 12:34 Patient admitted, IV remains in place. mb9 Administered Medications: 11:00 Drug: Aspirin PO Chewable Tablet 324 mg PO once; 81 mg tablets x 4 Route: PO; mb9 11:25 Follow up: Response: No adverse reaction mb9 Medication: 11:00 VIS not applicable for this client. mb9 Outcome: 11:24 Decision to Hospitalize by Provider. ec2 12:34 Admitted to Tele room 409, mb9 12:34 Condition: stable 12:34 Instructed on the need for admit, 12:37 Patient left the ED. mb9 Signatures: Dispatcher [employer] EDMS Fabian Patricia Vega, RN RN mb9 Bryn Shannon MD MD ec2
--- NOTE | 2023-09-12 11:25 | EDPHYS ---
Physician Documentation [facility] Name: Jeannie Giron Age: 63 yrs Sex: Female : 1960 Arrival Date: 09/12/2023 Time: 10:27 Bed 18 Private MD: ED Physician Bryn Shannon HPI: 09/11 10:31 This 63 yrs old Female presents to ER via Unassigned with complaints of Chest ec2 Pain. 10:31 Patient arrives today for evaluation of chest pain patient. Patient with chest pain, ec2 coming from cardiology office.. Historical: - Allergies: 10:35 Bactrim; mb9 10:35 Ciprofloxacin; mb9 10:35 Codeine; mb9 10:35 Iodinated Contrast Media - IV Dye; mb9 10:35 Iodine; mb9 10:35 Levaquin; mb9 10:35 Rocephin (rash); mb9 10:35 SHELLFISH; mb9 - Home Meds: 10:35 insulin [Active]; mb9 - PMHx: 10:35 Arthritis; ADD/ADHD; cirrhosis of liver; Diabetes - IDDM; GERD; Kidney stones; RAMOS; mb9 Osteopenia; Osteoporosis; polyps; - PSHx: 10:35 Cholecystectomy; Lithotripsy; Neck sx; Tonsillectomy; mb9 - Immunization history:: Adult Immunizations up to date. - Infectious Disease History:: Denies. - Social history:: Smoking status: Patient denies any tobacco usage or history of. ROS: 10:31 Constitutional: as per hpi ec2 Exam: 10:31 Constitutional: GEN: NAD Head: atraumatic Eyes: EOMI Ears: External ears are ec2 normal. CV: regular rate LUNGS: no respiratory distress ABD: non-distended SKIN: no evidence of rashes MSK: no evidence of trauma NEURO: moves all extremities equally Vital Signs: 10:35 BP 136 / 93; Pulse 66; Resp 18; Temp 98; Pulse Ox 100% ; Weight 70.31 kg; Height 5 ft. mb9 1 in. ; Pain 5/10; 11:26 BP 117 / 64; Pulse 70; Resp 16; Pulse Ox 97% on R/A; mb9 12:34 BP 118 / 61; Pulse 73; Resp 18; Pulse Ox 100% on R/A; mb9 10:35 Body Mass Index 29.29 (70.31 kg, 154.94 cm) mb9 10:35 Pain Scale: Adult mb9 MDM: 10:31 Patient medically screened. ec2 10:31 Data reviewed: vital signs. ED course: Patient arrives today for evaluation of chest ec2 pain. Examination remarkable for nontoxic vigorous otherwise in no acute distress. Will obtain lab work, EKG, chest x-ray. Discussed case with Dr. Giron who plans undergo cardiac catheterization this afternoon.. 10:47 ED course: EKG independently reviewed and interpreted by me, shows normal sinus rhythm, ec2 rate of 63, no acute ST segment elevations, intervals are nonconcerning.. 11:23 ED course: Metabolic profile reassuring, CBC reassuring, troponin is nondetectable, ec2 chest x-ray shows no acute intrathoracic process. Will admit for further cardiac evaluation. . 09/11 10:29 Order name: Basic Metabolic Panel; Complete Time: 11:23 ec2 09/11 10:29 Order name: CBC with Diff; Complete Time: 11:23 ec2 09/11 10:29 Order name: Troponin HS; Complete Time: 11:23 ec2 09/11 11:47 Order name: Troponin High Sensitivity EDNE 09/11 10:29 Order name: XRAY Chest (1 view); Complete Time: 11:23 ec2 09/11 11:39 Order name: CL LEFT HEART WITHOUT LV EDNE 09/11 10:29 Order name: EKG; Complete Time: 10:30 ec2 09/11 11:47 Order name: CONS Physician Consult EDNE 09/11 10:29 Order name: Cardiac monitoring; Complete Time: 11:00 ec2 09/11 10:29 Order name: EKG - Nurse/Tech; Complete Time: 11:00 ec2 09/11 10:29 Order name: IV Saline Lock; Complete Time: 11:00 ec2 09/11 10:29 Order name: Labs collected and sent; Complete Time: 11:00 ec2 09/11 10:29 Order name: O2 Per Protocol; Complete Time: 11:01 ec2 09/11 10:29 Order name: O2 Sat Monitoring; Complete Time: 11:01 ec2 Administered Medications: 11:00 Drug: Aspirin PO Chewable Tablet 324 mg PO once; 81 mg tablets x 4 Route: PO; mb9 11:25 Follow up: Response: No adverse reaction mb9 Disposition Summary: 09/12/23 11:24 Hospitalization Ordered Notes: Hospitalization Status: Inpatient Admission ec2 Location: Telemetry/MedSurg (Inpatient) ec2 Condition: Stable ec2 Problem: new ec2 Symptoms: have improved ec2 Bed/Room Type: Standard ec2 Provider: Jerry Genao(09/12/23 11:40) ec2 Room Assignment: [facility](09/12/23 12:24) bc6 Diagnosis - Chest pain, unspecified ec2 Forms: - Medication Reconciliation Form ec2 - SBAR form ec2 - Leadership Thank You Letter ec2 Signatures: Dispatcher [employer] Patricia Pizarro RN RN mb9 Jessica Sheikh 6 Bryn Shannon MD MD ec2 Corrections: (The following items were deleted from the chart) 11:40 11:24 Momo Jerry ec2 ec2 11:55 11:24 ec2 bc6 12:24 11:55 404 bc6 bc6
[2023-09-12] MEDS ORDERED: MORPHINE 4 MG/ML SYR IV PRN (11:42)
[2023-09-12] MEDS: NA CHLORIDE 0.9% 500 ML ONE (13:05)
[2023-09-12] MEDS: METHYLPREDNISOLONE 125 MG INJ ONE (13:05)
[2023-09-12] MEDS: DIPHENHYDRAMINE 50 MG/ML VIAL ONE (13:05)
[2023-09-12] MEDS: ONDANSETRON 4 MG/2 ML VIAL ONE (13:20)
[2023-09-12] MEDS ORDERED: LIDOCAINE 1% 20 ML MDV ONE (13:27)
[2023-09-12] MEDS ORDERED: VERAPAMIL HCL 10 MG/4 ML VIAL IV ONE (13:27)
[2023-09-12] MEDS ORDERED: HEPA 1000U/500MLS 2,000 UNIT/1,000 ML BAG IV ONE (13:27)
[2023-09-12] MEDS ORDERED: MIDAZOLAM HCL 2 MG/2 ML INJ ONE (13:27)
[2023-09-12] MEDS ORDERED: HEPARIN 5000 UNIT/ML 1 ML VIAL ONE (13:28)
[2023-09-12] MEDS ORDERED: TICAGRELOR 90 MG TABLET PO ONE (13:28)
[2023-09-12] MEDS ORDERED: HEPARIN 10,000 UNIT/10 ML VIAL IV ONE (13:28)
[2023-09-12] MEDS ORDERED: FENTANYL CITR 100 MCG/2 ML ONE (13:28)
[2023-09-12] MEDS ORDERED: ATROPINE SULF 1 MG/10 ML SYR IV ONE (13:28)
[2023-09-12] MEDS ORDERED: NITROGLYCERIN/D5W 50 MG/250 ML BTL IV ONE (13:29)
[2023-09-12] MEDS ORDERED: CLOPIDOGREL 75 MG TABLET ONE (13:29)
[2023-09-12] MEDS ORDERED: ASPIRIN 325 MG TAB ONE (13:29)
[2023-09-12] MEDS ORDERED: EPINEPHrine 1 MG/10 ML SYR ONE (13:30)
[2023-09-12] MEDS ORDERED: Phenylephrine HCl 10 MG/ML 1 ML VIAL ONE (13:30)
[2023-09-12 16:42] VITALS: BMI 29.2
--- NOTE | 2023-09-12 19:01 | CON ---
Date of Consultation: 09/12/2023 Reason For Consultation: Chest pain. History Of Present Illness: This is a 63-year-old female, known history of coronary artery disease t hat is mild to moderate, history of diabetes, acid reflux, irritable bowel syndrome. She had a stres s test yesterday and after walking on the treadmill she started having chest pain, pressure like, rad iates to her neck and left upper extremity on and off, lasting for about 10-15 minutes and she became nauseated with it and diaphoretic and then at multiple occasions. Apparently this morning the pain kept happening so she presented to my office where I directed her immediately to the emergency room f or emergent coronary angiogram and cardiac evaluation. She is still having active chest pain on and off and shortness of breath on exertion. Past Medical History: As outlined above in HPI. Medications: Refer to reconciliation sheet for detailed list. Allergies: VERY LONG LIST OF ALLERGY AND THAT WAS REVIEWED. PLEASE REFER TO NURSE'S NOTE. Family History: No premature coronary artery disease or cancer. Social History: Does not smoke or drink. Does not use drugs. Review of Systems: All systems reviewed, they were negative except as mentioned in the HPI. Physical Examination: Vital Signs: Reviewed. Head and Neck: Pupils are equal, reactive to light. Intact eye movements. No JVD. No cervical lym phadenopathy. Neck is supple. Thyroid is not enlarged. Lungs: Clear to auscultation bilaterally. No rhonchi, wheezing, or crackles. No accessory muscle u se. Heart: Regular rate and rhythm. No extra sounds. Abdomen: Soft, nontender. Bowel sounds positive. No organomegaly. No masses or hernia. No rigidi ty or rebound. Extremities: No edema, clubbing, or cyanosis. Intact pulses. Skin: No rash. No nodule. Neurologic: Alert, awake, oriented x3. No acute focal deficits appreciated. Lymph Nodes: No cervical or axillary lymphadenopathy. Investigations: Creatinine is 0.61, BUN 18. Troponin is negative. Assessment/recommendation: 1.Unstable angina. She has new onset chest pain, started after a stress test yesterday, on and off, it lasted about 10-15 minutes, pressure like, radiates to the neck and shoulder, very typical sympto ms. The patient is n.p.o. Plan for coronary angiogram and PCI as needed and continue baby aspirin f or now and further recommendation after coronary angiogram. 2.Diabetes. Check sugars 3 times a day. Cover with regular insulin per sliding scale. 3.Iodine allergy. She will be given Solu-Medrol and Benadryl prior to the procedure. 4.Shortness of breath, probably related to her current symptoms, there also could be congestive hear t failure. We will plan on obtaining an echo on her at a later time. SR/MODL Voice ID: [id number] Report ID: [id number]
[2023-09-12] MEDS ORDERED: methocarbamoL 750 MG TAB PO PRN (20:41)
[2023-09-12] MEDS: methocarbamoL 750 MG TAB PO PRN (21:22)
[2023-09-12] MEDS: GABAPENTIN 300 MG CAP PO SCH (21:22)
[2023-09-12] MEDS: ROSUVASTATIN 10 MG TAB PO SCH (21:22)
[2023-09-12] MEDS: INSULIN REGULAR (HUMAN) 100 UNIT/ML SQ SCH (21:23)
--- NOTE | 2023-09-12 22:27 | OP ---
Date of Procedure: 09/12/2023 Surgeon: MAURICIO COLLINS Procedures Performed: 1.Selective coronary angiogram. 2.Left heart catheterization. Indication: Unstable angina. Access: Radial artery 6-Anguillan closed with TR band. Complications: None. Bleeding: Less than 50 mL. Anesthesia: Total sedation time is 30 minutes. Used fentanyl and Versed. Description Of Procedure: After risks, benefits, and alternatives were explained, patient agreed to procedure and signed informed consent. The patient was prepped with Solu-Medrol and Benadryl due to anaphylaxis reaction to iodine in the past and then she was prepped and draped in usual sterile fashi on. Then, I accessed right radial artery using pediatric micropuncture kit, placed a 6-Anguillan slende r sheath. Took 5-Anguillan Marcus [place] 4 catheter into the aortic root and engaged the left main and the righ t coronary artery, took standard views and catheter was pushed over the wire into the LV, measured th e LVEDP. Pullback did not record any gradient. Then, we removed the catheter and the sheath, placed TR band with good hemostasis. Findings: 1.Left main: Large and normal. 2.LAD: Proximal 30% to 40% stenosis, mid also 30% to 40% stenosis. Distally, there is focal 40% to 50%. stenosis. Diagonal branch is normal. 3.Left circumflex: Large and codominant with proximal 30% stenosis. 4.RCA: Moderate size and codominant, has ostial 40% stenosis. 5.LVEDP is between 10 and 15 mmHg. Conclusion: Mild to mild coronary artery disease with mild elevated LVEDP. Recommendation: Medical management. SR/MODL Voice ID: [id number] Report ID: [id number]
[2023-09-13] MEDS: PANTOPRAZOLE 40MG TABLET PO SCH (05:15)
[2023-09-13 05:37] VITALS: O2SAT 97
[2023-09-13 06:37] LABS: ALT/SGPT 34 U/L (13-56); AST/SGOT 18 U/L (15-37); Albumin 3.5 g/dL (3.4-5.0); Alkaline Phosphatase 78 U/L (45-117); Anion Gap 11.1 mEq/L (5.0-15.0); BUN Blood Urea Nitrogen 19 mg/dL (7-18); Bicarbonate 24 mEq/L (21-32); Bilirubin Total 0.6 mg/dL (0.2-1.0); Globulin 3.6 g/dL (2.3-3.5); Glomerular Filtration Rate 100 ml/min (=/>90); Glucose Level 204 mg/dL (74-106); HDL Cholesterol 57 mg/dL (40-60); LDL Cholesterol, Calculated 76 mg/dL (<130); LDL Cholesterol,Calc NonReport 76; Potassium 4.1 mEq/L (3.5-5.1); Protein, Total 7.1 g/dL (6.4-8.2); Sodium Level 137 mEq/L (136-145)
[2023-09-13 06:39] LABS: C-Reactive Protein < 2.90 mg/L (<3.00)
[2023-09-13] MEDS: INSULIN DEGLUDEC SQ SCH (09:00)
[2023-09-13] MEDS: JARDIANCE 25 MG PO SCH (09:00)
[2023-09-13] MEDS: ESCITALOPRAM 20 MG TAB PO SCH (09:49)
[2023-09-13] MEDS: MELOXICAM 7.5 MG TAB PO SCH (09:49)
[2023-09-13] MEDS: CETIRIZINE HCL 5 MG TABLET PO SCH (09:49)
[2023-09-13] MEDS: lisinopriL 5 MG TAB PO SCH (09:50)
[2023-09-13 13:45] VITALS: BP 105/51; TEMP 97.3
--- NOTE | 2023-09-13 22:19 | HP ---
Date of Admission: 09/12/2023 Chief Complaint: Chest pain. History Of Present Illness: This is a 63-year-old very pleasant female patient who saw Dr. Giron fo r her complaints of chest pain and had a stress test done with him, but with her ongoing issues with chest pain complaints, a day after stress test she came into emergency room. After she was evaluated , she was admitted to the hospital, which was yesterday. Dr. Giron was contacted from emergency [facility], who decided to take the patient to cardiac cath yesterday with concerns about possibility of unsta ble angina considering her history of chest pain that she described as chest tightness type of feelin g. Dr. Giron talked to me a couple of times once before doing cardiac catheterization and second ti me after doing cardiac catheterization, and cardiac cath showed mild coronary artery disease, not sig nificantly different than before and medical management was suggested. When I saw her this morning, she was lying in bed, asymptomatic. The patient is having some frequent problem with gas in her stom ach and feels like she may have gas buildup problem in her chest after eating certain type of food, a nd she had beans the night before that she thinks might have contributed to her symptoms. She had fr equent heartburn and indigestion in the past. She was taking omeprazole, but has not been taking any such medications lately. Allergies: TO CODEINE, DETAILS UNKNOWN; HYDROCODONE, CAUSING ITCHING; ADVIL, CAUSING ITCHING; IODINE , CAUSING THROAT CLOSING TYPE OF SENSATION; LOVASTATIN, CAUSING RASH; NIACIN, CAUSING FLUSHING TYPE O F SENSATION; SULFA, CAUSING RASH. Medications: List reviewed. Review of Systems: Cardiovascular: As mentioned above. GI: As mentioned above. All other systems reviewed and negative. Past Medical History: Significant for mixed hyperlipidemia, cervical spondylosis, fatty liver diseas e, type 2 diabetes mellitus, gastroesophageal reflux disease, arthritis, peripheral neuropathy, coron frankie artery disease, anxiety, fatigue. Past Surgical History: Cholecystectomy, D and C, cervical spine surgery in 2012 and December 16, 2022 , shoulder surgery, carpal tunnel surgery on the left hand in 2019. Family History: Father, COPD and hypertension. Brother with breast cancer. Social History: Negative for smoking. Use of alcohol, negative. Physical Examination: Vital Signs: Temperature 97.6, pulse 61, respiratory rate 16, blood pressure 119/61, oxygen saturati on 98% on room air. Height 5 feet 1 inch, weight 155 pounds. General: Awake, alert, oriented, not in distress. HEENT: Head atraumatic, normocephalic. Conjunctivae nonerythematous. Sclerae white. Mouth, no thr ush or edema noted. Ears/Nose, no mass, lesion, discharge noted. Neck: Supple. No JVD, lymph nodes, bruit, thyromegaly noted. Lungs: Bilateral good equal air entry. Clear to auscultation. No rhonchi. No rales. Heart: Normal heart sounds, no murmur or gallop. Abdomen: Soft, bowel sounds normal. No guarding, rigidity, tenderness, mass, hepatosplenomegaly, dis tention, or bruit noted. Extremities: No leg edema. No calf tenderness. Skin: No rash, ulcer, cellulitis. Lymphatics: No lymph node enlargement in neck, supraclavicular, infraclavicular region. Neuro: No focal neurological deficit. Chest: Unremarkable. External Genitalia: Deferred. Rectal: Deferred. Laboratory Data: White count 4.3, hemoglobin 12.7, platelets 170. Sodium 137 today with potassium 4 .1, chloride 106, bicarb 24, BUN 19, creatinine 0.65, glucose 204. Liver function test unremarkable. LDL 76, total cholesterol 165, triglyceride 161. TSH 1.44. Troponin 2 sets less than 3. Yesterda y's chemistry panel: Sodium 137, potassium 4, chloride 105, bicarb 27, BUN 18, creatinine 0.61, gluc ose 128. Chest x-ray: No acute cardiopulmonary changes. EKG: No acute ST-T changes. Hospital Course: After the patient was evaluated in the emergency room, she was admitted to the hosp ital and the fruit or nut grower, Dr. Giron, was consulted, who took the patient to cardiac cath yesterday and found that the patient has mild coronary artery disease in all the 3 major coronaries anywhere fr om 30% to 40% stenosis. Medical management was suggested. Her outpatient labs have shown A1c of 6.3 , which shows diabetes is under excellent control. Her LDL was 79 on outpatient basis and current LD L is also around the same value. I have recommended to the patient that we should try to keep her LD L less than 55 if possible in view of her coronary artery disease problem, and she takes her rosuvast atin 10 mg daily. I have instructed her to take 2 tablets daily to make a total dose of 20 mg daily. She was taking omeprazole, which she has not been doing it lately and I have advised her to try fam otidine 40 mg daily at bedtime to see if that helps with her gastroesophageal reflux disease problem. Final Diagnoses: 1.Unstable angina. 2.Coronary artery disease. 3.Gastroesophageal reflux disease. 4.Hypertension. 5.Mixed hyperlipidemia. 6.Type 2 diabetes mellitus. 7.Diabetes mellitus with peripheral neuropathy. Discharge Medications And Instructions: 1.Continue all prior home medications except following changes: a.Rosuvastatin 10 mg, take 2 tablets by mouth daily until you run out and change it to 20 mg, take 1 tablet by mouth daily at bedtime. b.Start famotidine 40 mg take 1 tablet by mouth daily at bedtime. c.Start Trijardy as of 09/15/2023. 2.Follow up at office a week after next. 3.The patient was instructed not to carry anything heavier than 8 ounce glass of water with the righ t hand for 1 week. Total time spent is 90 minutes, includes review of last office visit record, communication with cardi ologist, communication with the emergency room physician, review of current emergency room records, and performing evaluation and man agement of this admission. BELL/ADAM Voice ID: [id number]
[2023-09-14] MEDS ORDERED: URSODIOL 500 MG PO SCH (09:00)
--- NOTE | 2023-09-15 17:09 | EKG ---
Test Date: 2023-09-12 Test Time: 10:38:39 Life Enrichment Assistant: MIKE MEASUREMENT RESULTS: Intervals: Rate: 63 HI: 158 QRSD: 86 QT: 418 QTc: 427 [place]: P: 40 HI: 158 QRS: 56 T: 55 INTERPRETIVE STATEMENTS: Normal sinus rhythm Normal ECG Compared to ECG 07/27/2022 14:28:45 No significant changes Electronically Signed On 09-15-23 16:59:52 CDT by Dustin Giron
== END 2023-09-13 13:45 | disposition home or self-care (01) ==
LOC: ER 10:27 → ERHOLD 11:42 → INTOOBSV 11:42 → 4TH 14:56
PROVIDERS: ADMIT Internal Medicine; ATTEND Internal Medicine
PROC: 4A023N7 Measurement of Cardiac Sampling and Pressure, Left Heart, Percutaneous Approach (ICD-10-PCS; principal; 2023-09-12)
PROC: B2111ZZ Fluoroscopy of Multiple Coronary Arteries using Low Osmolar Contrast (ICD-10-PCS; 2023-09-12)
PROC: B2151ZZ Fluoroscopy of Left Heart using Low Osmolar Contrast (ICD-10-PCS; 2023-09-12)
DX: I25.110 Atherosclerotic heart disease of native coronary artery with unstable angina pectoris (principal); I10 Essential (primary) hypertension; E11.42 Type 2 diabetes mellitus with diabetic polyneuropathy; E78.2 Mixed hyperlipidemia; K21.9 Gastro-esophageal reflux disease without esophagitis; M81.0 Age-related osteoporosis without current pathological fracture; M19.90 Unspecified osteoarthritis, unspecified site; K58.9 Irritable bowel syndrome, unspecified; K76.0 Fatty (change of) liver, not elsewhere classified; F41.9 Anxiety disorder, unspecified; Z79.4 Long term (current) use of insulin; Z88.5 Allergy status to narcotic agent; Z88.8 Allergy status to other drugs, medicaments and biological substances; Z91.041 Radiographic dye allergy status; Z91.013 Allergy to seafood; Z90.49 Acquired absence of other specified parts of digestive tract; Z82.49 Family history of ischemic heart disease and other diseases of the circulatory system; Z80.3 Family history of malignant neoplasm of breast
CPT/HCPCS: 93005; 85025; 80048; 36415; 80061; 82947 ×4; 84443; 83036; 84484 ×2; 80053; 86140; 71045; 93458; 76937; 99285; C1893; Q9966; J1644; J2001; J1200; J2919; J2405; J7040; G0378 ×4; 99152; J0171; J0461; J2250; J2371; J3010